=== PATIENT | male | born 1940 | race Caucasian/White ===

== ENCOUNTER 2020-02-19 19:18 | Inpatient (IN) | payer OTHER, SELFPAY ==
[2020-02-19] MEDS ORDERED: NA CHLORIDE 0.9% 1,000 ML ONE ×2 (20:21→23:28)
[2020-02-19] MEDS ORDERED: ONDANSETRON 4 MG/2 ML VIAL ONE (20:22)
[2020-02-19] MEDS ORDERED: MORPHINE 4 MG/ML SYR ONE ×2 (20:22→21:19)
[2020-02-19] MEDS ORDERED: TETANUS & DIPHTHERIA TOX,ADULT 0.5 ML VIAL ONE (20:26)
--- NOTE | 2020-02-19 20:34 | RAD REPORT ---
EXAM DESCRIPTION: RAD - Chest Single View - 02/19/2020 8:27 pm CLINICAL HISTORY: COUGH Chest pain. COMPARISON: No comparisons FINDINGS: Portable technique limits examination quality. The lungs are emphysematous but grossly clear. The heart is normal in size. No displaced fractures. IMPRESSION: Prominent COPD.
[2020-02-19 20:40] LABS: Hematocrit 50.8 % (39.6-49.0); RBC Red Blood Cell Count 5.46 M/uL (4.33-5.43)
--- NOTE | 2020-02-19 20:58 | RAD REPORT ---
EXAM DESCRIPTION: CT - Head C Spine Cap Wo Con - 02/19/2020 8:40 pm CLINICAL HISTORY: Trauma, head and neck injury. Chest, abdomen and pelvis pain. Pain;Weakness COMPARISON: No comparisons TECHNIQUE: CT head without contrast. CT cervical spine without contrast with coronal and sagittal reformatted images. CT chest, abdomen and pelvis without contrast with coronal and sagittal reformatted [facility] scans are performed using dose optimization technique as appropriate and may include automated exposure control or mA/KV adjustment according to patient size. FINDINGS: CT HEAD WITHOUT CONTRAST: No intracranial hemorrhage, hydrocephalus or extra-axial fluid collection. Moderate generalized brain atrophy is present with moderate periventricular and deep white matter chronic microvascular ischemi c changes. No areas of brain edema or midline shift. Mild fluid is seen in the right maxillary antrum. The paranasal sinuses and mastoids are otherwise cl ear. The calvarium is intact. CT CERVICAL SPINE WITHOUT CONTRAST: No fracture or subluxation. Mild mid and lower cervical degenerative changes. Mild atherosclerosis of both carotid arteries. The prevertebral soft tissues are normal in thickness. CT CHEST, ABDOMEN, PELVIS WITHOUT CONTRAST: NOTE: Lack of contrast is a significant limitation in the assessment of trauma related findings. Spec ifically, solid organ, vascular and bowel evaluation is significantly limited. Prominent COPD.No focal infiltrate seen.No pneumothorax or pericardial/pleural fluid. No evidence of intra-abdominal visceral injury, free fluid or free air is seen within the above detai led limitations. Mild sigmoid diverticulosis without diverticulitis. Small bilateral fat containing inguinal hernias. No fractures. IMPRESSION: Negative for acute traumatic findings within the above detailed limitations.
[2020-02-19 21:12] LABS: Albumin 2.7 g/dL (3.4-5.0); Bilirubin Direct 0.3 mg/dL (0-0.2); Bilirubin Total 0.9 mg/dL (0.2-1.0); Blood Morphology Comment NOT SEEN (NOT SEEN); CKMB Creatine Kinase MB 15.3 ng/mL (0.3-3.6); Magnesium 3.1 mg/dL (1.8-2.4); Platelet Estimate DECR; Potassium 3.9 mmol/L (3.5-5.1); Protein, Total 6.1 g/dL (6.4-8.2); Troponin (Emerg Dept Use Only) 0.25 ng/mL (0.0-0.045)
--- NOTE | 2020-02-19 21:12 | ER ---
Nurse's Notes [facility] Name: Wally Ruby Age: 79 yrs Sex: Male : 1940 Arrival Date: 02/19/2020 Time: 19:19 Bed 5 Private MD: Diagnosis: Repeated falls;Weakness;Chronic obstructive pulmonary disease, unspecified;Elevated white blood cell count;Low back pain;Rhabdomyolysis;Acute kidney failure;Hypoglycemia, unspecified Presentation: 02/18 19:20 Chief complaint: EMS states: HE LIVES AT HOME BY HIMSELF. WITH CHRONIC BACK PAIN AND rv NORMALLY MOVES AROUND BY CRAWLING. TODAY, THE PAIN JUST HIT HIM AND COULD NOT GO ANY FURTHER THAT IS WHY HE CALLED US IN. NOTICED ABRASIONS AND BRUISES ALL OVER ESPECIALLY ON BOTH KNEES AND UPPER EXTREMITIES FROM CRAWLING AROUND. GCS 15. ALERT AND ORIENTED. Care prior to arrival: None. Mechanism of Injury: Fall SAME LEVEL. Trauma event details: Injury occurred in the [facility], Injury occurred: at home. Injury occurred: February 19, 2020 Injury occurred at: 19:00. 19:20 Acuity: JYOTHI 3 rv 19:20 Method Of Arrival: EMS: [facility] rv 19:30 Coronavirus screen: Patient denies fever greater than 100.4F, cough, shortness of rv breath, or difficulty breathing. Proceed with normal triage process. Ebola Screen: No symptoms or risks identified at this time. Initial Sepsis Screen: Does the patient meet any 2 criteria? No. Patient's initial sepsis screen is negative. Does the patient have a suspected source of infection? No. Patient's initial sepsis screen is negative. Risk Assessment: Do you want to hurt yourself or someone else? Patient reports no desire to harm self or others. 22:12 Onset of symptoms is unknown. rv Trauma Activation: Not Applicable Physician: ED Physician; Name: ; Notified At: ; Arrived At: Physician: General Surgeon; Name: ; Notified At: ; Arrived At: Physician: Radiology; Name: ; Notified At: ; Arrived At: Physician: Respiratory; Name: ; Notified At: ; Arrived At: Physician: Lab; Name: ; Notified At: ; Arrived At: Historical: - Allergies: 19:33 No Known Allergies; rv - PMHx: 19:33 COPD; rv - PSHx: 19:33 None; rv - Immunization history: Last tetanus immunization: unknown. - Social history:: Smoking status: Patient reports the use of cigarette tobacco products, smokes one-half pack cigarettes per day. Screenin:28 Abuse screen: Denies threats or abuse. Denies injuries from another. Tuberculosis rv screening: No symptoms or risk factors identified. 19:30 Nutritional screening: No deficits noted. Fall Risk Fall in past 12 months (25 points). rv Secondary diagnosis (15 points) impaired mobility, No IV (0 pts). Ambulatory Aid- Furniture (30 pts.). Gait- Impaired (20 pts.). Mental Status- Oriented to own ability (0 pts). Total Michele Fall Scale indicates High Risk Score (45 or more points). Fall prevention measures have been instituted. Side Rails Up X 2 Frequent Obs/Assessments Occuring As available patient and family educated on Fall Prevention Program and Strategies. Primary Survey: 19:27 NO uncontrolled hemorrhage observed. Breathing/Chest: Respiratory pattern: regular. rv Circulation: Skin color: pink. Disability Alert. Exposure/Environment: There is no evidence of uncontrolled external bleeding. No obvious injuries are noted at this time. A warming method has been applied: A warm blanket has been provided to the patient. Assessment: 19:24 General: Appears in no apparent distress. Behavior is calm, cooperative. Pain: rv Complains of pain in back, right leg and left knee. Neuro: Level of Consciousness is awake, alert, obeys commands, Oriented to person, place, time, situation. EENT: No signs and/or symptoms were reported regarding the EENT system. Cardiovascular: Patient's skin is warm and dry. Respiratory: Airway is patent Respiratory effort is even, unlabored. GI: No signs and/or symptoms were reported involving the gastrointestinal system. : No signs and/or symptoms were reported regarding the genitourinary system. Derm: Skin has skin tears on LOWER AND UPPER EXTREMITIES. Bruising that is dark purple, on right knee and left knee. Musculoskeletal: Reports pain in back COULD NOT AMBULATE NORMALLY, PATIENT USUALLY CRAWLS AROUND HIS HOUSE. 19:30 Reassessment: PATIENT CAME IN WITHOUT THE WALLET. CELLPHONE AND CAR CALVERT HANDED OFF BY rv EMT UPON ARRIVAL. 20:23 Reassessment: HOOKED TO OXYGEN AT 2LPM PER NC. rv 20:31 Reassessment: PATIENT TAKEN TO CT SCAN VIA STRETCHER. rv 21:05 Reassessment: PATIENT BACK FROM THE CT SCAN. rv 22:11 Reassessment: GIVEN JUICE PO. WILL RECHECK SUGAR AFTER 30 MINUTES. rv 23:17 Reassessment: BLOOD SUGAR DECREASED AFTER RECHECK. GIVEN HALF AMP OF DEXTROSE 50 W IV rv AND OFFERED SANDWICH AND ANOTHER APPLE JUICE. GCS 15. 23:37 Reassessment: SUGAR ELEVATED AFTER EATING. GCS 15. rv Vital Signs: 19:28 BP 106 / 94; Pulse 93; Resp 19; Temp 96.5(TE); Pulse Ox 100% on R/A; Weight 81.65 kg; rv Height 5 ft. 11 in. (180.34 cm); 19:47 Pain 10/10; rv 20:31 BP 134 / 81; Pulse 88; Resp 17; Pulse Ox 96% on 2 lpm NC; rv 21:19 BP 117 / 61; Pulse 93; Resp 18; Temp 97.5; Pulse Ox 99% on 2 lpm NC; Pain 10/10; rv 22:00 BP 115 / 70; Pulse 88; Resp 18; Pulse Ox 94% on 2 lpm NC; rv 23:00 BP 131 / 87; Pulse 97; Resp 18; Pulse Ox 96% on 2 lpm NC; rv 23:30 BP 132 / 74; Pulse 89; Resp 21; Pulse Ox 96% on 2 lpm NC; rv 19:28 Body Mass Index 25.10 (81.65 kg, 180.34 cm) rv Juan Jose Coma Score: 19:28 Eye Response: spontaneous(4). Verbal Response: oriented(5). Motor Response: obeys rv commands(6). Total: 15. 20:31 Eye Response: spontaneous(4). Verbal Response: oriented(5). Motor Response: obeys rv commands(6). Total: 15. Trauma Score (Adult): 19:28 Eye Response: spontaneous(1); Verbal Response: oriented(1); Motor Response: obeys rv commands(2); Systolic BP: > 89 mm Hg(4); Respiratory Rate: 10 to 29 per min(4); Juan Jose Score: 15; Trauma Score: 12 ED Course: 19:19 Patient arrived in ED. ds1 19:20 Hi Vyas, MELLO is Primary Nurse. rv 19:24 Triage completed. rv 19:28 Patient has correct armband on for positive identification. Bed in low position. Call rv light in reach. Side rails up X2. 19:28 Patient maintains SpO2 saturation greater than 95% on room air. rv 19:33 Lang Mccann MD is Attending Physician. jad 19:33 Arm band placed on Patient placed in the treatment room, on a stretcher, Patient rv notified of wait time. 19:33 Thermoregulation: warm blanket given to patient. rv 20:27 XRAY Chest (1 view) In Process Unspecified. EDMS 20:29 EKG done, by ED staff, reviewed by Lang Mccann MD. rr5 20:30 Inserted saline lock: 20 gauge in right Blood collected. DA GENERAL CARGO CLERK. rv 20:36 Ckmb Sent. ds4 20:36 CK Sent. ds4 20:37 Lipase Sent. ds4 20:37 Basic Metabolic Panel Sent. ds4 20:37 NT PRO-BNP Sent. ds4 20:37 CBC with Diff Sent. ds4 20:38 LFT's Sent. ds4 20:38 Magnesium Sent. ds4 20:38 PT-INR Sent. ds4 20:38 Troponin (emerg Dept Use Only) Sent. ds4 20:41 CT Traumagram (Head C Spine CAP wo con) In Process Unspecified. EDMS 21:10 Ariadne Watson MD is Hospitalizing Provider. jad 21:16 Notified ED physician of a critical lab result(s). CPK 3179, CKMB 15.3. lp1 21:30 First set of blood cultures drawn by me. ds4 21:30 Inserted saline lock: 22 gauge in left antecubital area, using aseptic technique. Blood ds4 collected. 23:11 No provider procedures requiring assistance completed. Patient admitted, IV remains in rr5 place. intact, No redness/swelling at site. 23:20 Blood Culture Adult (2) Sent. ds4 23:20 Urine Culture Sent. ds4 23:40 Velasquez cath inserted, using sterile technique, 16 Fr., by manager infrastructure, balloon inflated, to rr5 gravity drainage, other by da printer repair technician. Administered Medications: 20:28 Drug: Tetanus-Diphtheria Toxoid Adult 0.5 ml {Dramatic Arts Historian: [employer]. Exp: rr5 12/12/2021. Lot #: [id number]. } Route: IM; Site: left deltoid; 21:06 Follow up: Response: No adverse reaction rv 20:29 Drug: morphine 4 mg {Note: RASS 0.} Route: IVP; Site: right antecubital; rv 21:06 Follow up: Response: No adverse reaction; Pain is unchanged, physician notified; RASS: rv Alert and Calm (0) 20:30 Drug: Zofran (Ondansetron) 4 mg Route: IVP; Site: right antecubital; rv 21:06 Follow up: Response: No adverse reaction rv 20:31 Drug: NS 0.9% 1000 ml Route: IV; Rate: 1 bolus; Site: right antecubital; rv 23:20 Follow up: IV Status: Completed infusion; IV Intake: 1000ml rv 21:20 Drug: Rocephin 1 grams Route: IV; Rate: per protocol; Site: right antecubital; rv 21:21 Follow up: IV Status: Completed infusion rv 21:20 Drug: morphine 4 mg {Note: RASS 0.} Route: IVP; Site: right antecubital; rv 23:40 Follow up: Response: No adverse reaction; Marked relief of symptoms; Pain is decreased; rv RASS: Alert and Calm (0) 23:17 Drug: D50W 25 ml Route: IVP; Site: right antecubital; rv 23:33 Follow up: Response: Blood sugar is elevated rv 23:28 Drug: NS 0.9% 1000 ml Route: IV; Rate: 1 bolus; Site: right antecubital; rv 23:39 Follow up: IV Status: Infusion continued upon admission rv Intake: 23:20 IV: 1000ml; Total: 1000ml. rv Outcome: 21:11 Decision to Hospitalize by Provider. jad 23:11 Admitted to [facility] accompanied by ar, via stretcher, room 402, with oxygen, with chart, rr5 Report called to kennedy 23:11 Condition: stable 23:11 Instructed on the need for admit. 23:43 Patient left the ED. rv Signatures: Dispatcher [employer] EDLang Villalobos MD MD cha Sanford, Demi ds1 Gilma Chaparro, RN RN lp1 Da Castro ds4 Hi Vyas RN RN rv Chico Page, RN RN rr5 Corrections: (The following items were deleted from the chart) 21:36 21:35 Inserted saline lock: 22 gauge in left antecubital area, using aseptic technique. ds4 Blood collected. ds4 23:38 23:17 Reassessment: BLOOD SUGAR DECREASED AFTER RECHECK. GIVEN HALF AMP OF DEXTROSE 50 rv W IV AND OFFERED SANDWICH AND ANOTHER APPLE JUICE. rv
--- NOTE | 2020-02-19 21:12 | EDPHYS ---
Physician Documentation [facility] Name: Wally Ruby Age: 79 yrs Sex: Male : 1940 Arrival Date: 02/19/2020 Time: 19:19 Bed 5 Private MD: ED Physician Lang Mccann HPI: 02/18 20:16 This 79 yrs old Male presents to ER via EMS with complaints of Fall Injury. jad 20:16 Details of fall: The patient fell from an upright position, while walking. Onset: The jad symptoms/episode began/occurred 5 day(s) ago. Associated injuries: The patient sustained right leg and left leg, decreased range of motion. Severity of symptoms: At their worst the symptoms were mild, in the emergency department the symptoms are unchanged. Historical: - Allergies: 19:33 No Known Allergies; rv - PMHx: 19:33 COPD; rv - PSHx: 19:33 None; rv - Immunization history: Last tetanus immunization: unknown. - Social history:: Smoking status: Patient reports the use of cigarette tobacco products, smokes one-half pack cigarettes per day. ROS: 20:17 Constitutional: Negative for fever, chills, and weight loss, Eyes: Negative for injury, jad pain, redness, and discharge, ENT: Negative for injury, pain, and discharge, Neck: Negative for injury, pain, and swelling, Cardiovascular: Negative for chest pain, palpitations, and edema, Respiratory: Negative for shortness of breath, cough, wheezing, and pleuritic chest pain, Abdomen/GI: Negative for abdominal pain, nausea, vomiting, diarrhea, and constipation, : Negative for injury, bleeding, discharge, and swelling, MS/Extremity: Negative for injury and deformity, Skin: Negative for injury, rash, and discoloration, Neuro: Negative for headache, weakness, numbness, tingling, and seizure, Psych: Negative for depression, anxiety, suicide ideation, homicidal ideation, and hallucinations, Allergy/Immunology: Negative for hives, rash, and allergies, Endocrine: Negative for neck swelling, polydipsia, polyuria, polyphagia, and marked weight changes, Hematologic/Lymphatic: Negative for swollen nodes, abnormal bleeding, and unusual bruising. 20:17 Back: Positive for decreased range of motion, pain at rest, pain with movement. 20:17 MS/extremity: Positive for decreased range of motion, pain, tenderness, of the right leg and left leg. Exam: 20:17 Constitutional: This is a well developed, well nourished patient who is awake, alert, jad and in no acute distress. Head/Face: Normocephalic, atraumatic. Eyes: Pupils equal round and reactive to light, extra-ocular motions intact. Lids and lashes normal. Conjunctiva and sclera are non-icteric and not injected. Cornea within normal limits. Periorbital areas with no swelling, redness, or edema. ENT: Nares patent. No nasal discharge, no septal abnormalities noted. Tympanic membranes are normal and external auditory canals are clear. Oropharynx with no redness, swelling, or masses, exudates, or evidence of obstruction, uvula midline. Mucous membranes moist. Neck: Trachea midline, no thyromegaly or masses palpated, and no cervical lymphadenopathy. Supple, full range of motion without nuchal rigidity, or vertebral point tenderness. No Meningismus. Chest/axilla: Normal chest wall appearance and motion. Nontender with no deformity. No lesions are appreciated. Cardiovascular: Regular rate and rhythm with a normal S1 and S2. No gallops, murmurs, or rubs. Normal PMI, no JVD. No pulse deficits. Respiratory: Lungs have equal breath sounds bilaterally, clear to auscultation and percussion. No rales, rhonchi or wheezes noted. No increased work of breathing, no retractions or nasal flaring. Abdomen/GI: Soft, non-tender, with normal bowel sounds. No distension or tympany. No guarding or rebound. No evidence of tenderness throughout. Male : Normal genitalia with no discharge or lesions. Neuro: Awake and alert, GCS 15, oriented to person, place, time, and situation. Cranial nerves II-XII grossly intact. Motor strength 5/5 in all extremities. Sensory grossly intact. Cerebellar exam normal. Normal gait. Psych: Awake, alert, with orientation to person, place and time. Behavior, mood, and affect are within normal limits. 20:17 Back: pain, that is mild, that is moderate, ROM is painful, normal spinal alignment noted, CVA tenderness, is absent, muscle spasm, is appreciated in the left low back, left mid back, right mid back and right low back. Vital Signs: 19:28 BP 106 / 94; Pulse 93; Resp 19; Temp 96.5(TE); Pulse Ox 100% on R/A; Weight 81.65 kg; rv Height 5 ft. 11 in. (180.34 cm); 19:47 Pain 10/10; rv 20:31 BP 134 / 81; Pulse 88; Resp 17; Pulse Ox 96% on 2 lpm NC; rv 21:19 BP 117 / 61; Pulse 93; Resp 18; Temp 97.5; Pulse Ox 99% on 2 lpm NC; Pain 10/10; rv 22:00 BP 115 / 70; Pulse 88; Resp 18; Pulse Ox 94% on 2 lpm NC; rv 23:00 BP 131 / 87; Pulse 97; Resp 18; Pulse Ox 96% on 2 lpm NC; rv 23:30 BP 132 / 74; Pulse 89; Resp 21; Pulse Ox 96% on 2 lpm NC; rv 19:28 Body Mass Index 25.10 (81.65 kg, 180.34 cm) rv Juan Jose Coma Score: 19:28 Eye Response: spontaneous(4). Verbal Response: oriented(5). Motor Response: obeys rv commands(6). Total: 15. 20:31 Eye Response: spontaneous(4). Verbal Response: oriented(5). Motor Response: obeys rv commands(6). Total: 15. Trauma Score (Adult): 19:28 Eye Response: spontaneous(1); Verbal Response: oriented(1); Motor Response: obeys rv commands(2); Systolic BP: > 89 mm Hg(4); Respiratory Rate: 10 to 29 per min(4); Juan Jose Score: 15; Trauma Score: 12 MDM: 19:33 Patient medically screened. [facility] 20:17 Data reviewed: vital signs, nurses notes, lab test result(s), EKG, radiologic studies, [facility] CT scan, plain films. 02/18 20:13 Order name: Basic Metabolic Panel; Complete Time: 23:16 [facility] 02/18 20:13 Order name: CBC with Diff; Complete Time: 23:16 [facility] 02/18 20:13 Order name: LFT's; Complete Time: 23:16 [facility] 02/18 20:13 Order name: Magnesium; Complete Time: 23:16 [facility] 02/18 20:13 Order name: NT PRO-BNP; Complete Time: 23:16 [facility] 02/18 20:13 Order name: PT-INR; Complete Time: 23:16 [facility] 02/18 20:13 Order name: Troponin (emerg Dept Use Only); Complete Time: 23:16 [facility] 02/18 20:13 Order name: Lipase; Complete Time: 23:16 [facility] 02/18 20:13 Order name: CK; Complete Time: 23:16 [facility] 02/18 20:13 Order name: Ckmb; Complete Time: 23:16 [facility] 02/18 20:13 Order name: Urine Culture [facility] 02/18 20:49 Order name: Manual Differential; Complete Time: 23:16 [facility] 02/18 21:10 Order name: Blood Culture Adult (2) [facility] 02/18 21:12 Order name: Urine Dipstick--Ancillary (enter results); Complete Time: 23:16 [facility] 02/18 22:46 Order name: CBC with Automated Diff [facility] 02/18 22:46 Order name: CBC with Automated Diff [facility] 02/18 22:46 Order name: CKMB Creatine Kinase MB [facility] 02/18 22:46 Order name: CKMB Creatine Kinase MB [facility] 02/18 22:46 Order name: CKMB Creatine Kinase MB [facility] 02/18 22:46 Order name: CKMB Creatine Kinase MB [facility] 02/18 22:46 Order name: Comprehensive Metabolic Panel [facility] 02/18 22:46 Order name: Comprehensive Metabolic Panel [facility] 02/18 22:46 Order name: Creatine Phosphokinase [facility] 02/18 22:46 Order name: Creatine Phosphokinase [facility] 02/18 22:46 Order name: Creatine Phosphokinase [facility] 02/18 22:46 Order name: Creatine Phosphokinase [facility] 02/18 22:46 Order name: Protime (+INR) [facility] 02/18 22:46 Order name: Protime (+INR) [facility] 02/18 22:46 Order name: PTT, Activated Partial Thromb [facility] 02/18 22:46 Order name: PTT, Activated Partial Thromb [facility] 02/18 20:13 Order name: XRAY Chest (1 view); Complete Time: 21:08 [facility] 02/18 20:13 Order name: EKG; Complete Time: 20:13 [facility] 02/18 20:13 Order name: Cardiac monitoring; Complete Time: 20:23 [facility] 02/18 20:13 Order name: EKG - Nurse/Tech; Complete Time: 20:23 [facility] 02/18 20:13 Order name: IV Saline Lock; Complete Time: 20:23 [facility] 02/18 20:13 Order name: Labs collected and sent; Complete Time: 20:23 [facility] 02/18 20:13 Order name: O2 Per Protocol; Complete Time: 20:23 [facility] 02/18 20:13 Order name: O2 Sat Monitoring; Complete Time: 20:23 [facility] 02/18 20:13 Order name: Urine Dipstick-Ancillary (obtain specimen); Complete Time: 21:12 [facility] 02/18 20:13 Order name: CT Traumagram (Head C Spine CAP wo con); Complete Time: 21:08 [facility] 02/18 22:45 Order name: CONS Pharmacy Consult [facility] 02/18 22:45 Order name: CONS Physician Consult [facility] 02/18 22:46 Order name: Heart Healthy [facility] 02/18 22:46 Order name: EKG Electrocardiogram [facility] 02/18 22:46 Order name: EKG Electrocardiogram [facility] 02/18 22:46 Order name: Troponin I [facility] 02/18 22:46 Order name: Troponin I [facility] 02/18 22:46 Order name: Troponin I [facility] 02/18 23:18 Order name: Velasquez: viscus lido; Complete Time: 23:29 [facility] 02/18 23:24 Order name: Glucose, Ancillary Testing EDMS Administered Medications: 20:28 Drug: Tetanus-Diphtheria Toxoid Adult 0.5 ml {[employer] Consultant: [employer]. Exp: rr5 12/12/2021. Lot #: [id number]. } Route: IM; Site: left deltoid; 21:06 Follow up: Response: No adverse reaction rv 20:29 Drug: morphine 4 mg {Note: RASS 0.} Route: IVP; Site: right antecubital; rv 21:06 Follow up: Response: No adverse reaction; Pain is unchanged, physician notified; RASS: rv Alert and Calm (0) 20:30 Drug: Zofran (Ondansetron) 4 mg Route: IVP; Site: right antecubital; rv 21:06 Follow up: Response: No adverse reaction rv 20:31 Drug: NS 0.9% 1000 ml Route: IV; Rate: 1 bolus; Site: right antecubital; rv 23:20 Follow up: IV Status: Completed infusion; IV Intake: 1000ml rv 21:20 Drug: Rocephin 1 grams Route: IV; Rate: per protocol; Site: right antecubital; rv 21:21 Follow up: IV Status: Completed infusion rv 21:20 Drug: morphine 4 mg {Note: RASS 0.} Route: IVP; Site: right antecubital; rv 23:40 Follow up: Response: No adverse reaction; Marked relief of symptoms; Pain is decreased; rv RASS: Alert and Calm (0) 23:17 Drug: D50W 25 ml Route: IVP; Site: right antecubital; rv 23:33 Follow up: Response: Blood sugar is elevated rv 23:28 Drug: NS 0.9% 1000 ml Route: IV; Rate: 1 bolus; Site: right antecubital; rv 23:39 Follow up: IV Status: Infusion continued upon admission rv Disposition: 02/19/20 21:11 Hospitalization ordered by Ariadne Watson for Inpatient Admission. Preliminary diagnosis are Repeated falls, Weakness, Chronic obstructive pulmonary disease, unspecified, Elevated white blood cell count, Low back pain, Rhabdomyolysis, Acute kidney failure, Hypoglycemia, unspecified. - Bed requested for Telemetry/MedSurg (Inpatient). - Status is Inpatient Admission. rv - Condition is Fair. - Problem is new. - Symptoms have improved. Signatures: Dispatcher [employer] EDMS Lang Mccann MD MD cha Lasagna, Tonya, RN RN tl1 Hi Vyas RN RN rv [place] Page RN RN [email or web address] Corrections: (The following items were deleted from the chart) 21:12 21:11 Hospitalization Ordered by Ariadne Watson MD for Inpatient Admission. Preliminary jad diagnosis is Repeated falls; Weakness; Chronic obstructive pulmonary disease, unspecified; Elevated white blood cell count. Bed requested for Telemetry/MedSurg (Inpatient). Status is Inpatient Admission. Condition is Fair. Problem is new. Symptoms have improved. jad 21:18 21:12 02/19/2020 21:11 Hospitalization Ordered by Ariadne Watson MD for Inpatient jad Admission. Preliminary diagnosis is Repeated falls; Weakness; Chronic obstructive pulmonary disease, unspecified; Elevated white blood cell count; Low back pain. Bed requested for Telemetry/MedSurg (Inpatient). Status is Inpatient Admission. Condition is Fair. Problem is new. Symptoms have improved. jad 22:56 21:18 02/19/2020 21:11 Hospitalization Ordered by Ariadne Watson MD for Inpatient tl1 Admission. Preliminary diagnosis is Repeated falls; Weakness; Chronic obstructive pulmonary disease, unspecified; Elevated white blood cell count; Low back pain; Rhabdomyolysis. Bed requested for Telemetry/MedSurg (Inpatient). Status is Inpatient Admission. Condition is Fair. Problem is new. Symptoms have improved. [facility] 23:19 22:56 02/19/2020 21:11 Hospitalization Ordered by Ariadne Watson MD for Inpatient jad Admission. Preliminary diagnosis is Repeated falls; Weakness; Chronic obstructive pulmonary disease, unspecified; Elevated white blood cell count; Low back pain; Rhabdomyolysis. Bed requested for Telemetry/MedSurg (Inpatient). Status is Inpatient Admission. Condition is Fair. Problem is new. Symptoms have improved. tl1 23:20 23:19 02/19/2020 21:11 Hospitalization Ordered by Ariadne Watson MD for Inpatient jad Admission. Preliminary diagnosis is Repeated falls; Weakness; Chronic obstructive pulmonary disease, unspecified; Elevated white blood cell count; Low back pain; Rhabdomyolysis; Acute kidney failure. Bed requested for Telemetry/MedSurg (Inpatient). Status is Inpatient Admission. Condition is Fair. Problem is new. Symptoms have improved. [facility] 23:43 23:20 02/19/2020 21:11 Hospitalization Ordered by Ariadne Watson MD for Inpatient rv Admission. Preliminary diagnosis is Repeated falls; Weakness; Chronic obstructive pulmonary disease, unspecified; Elevated white blood cell count; Low back pain; Rhabdomyolysis; Acute kidney failure; Hypoglycemia, unspecified. Bed requested for Telemetry/MedSurg (Inpatient). Status is Inpatient Admission. Condition is Fair. Problem is new. Symptoms have improved. jad
[2020-02-19 21:18] LABS: Urine Blood 2+ (NEG); Urine Glucose NEGATIVE (NEG); Urine Protein 2+ (NEG); Urine pH 6.5 (5.0-7.0)
[2020-02-19] MEDS ORDERED: CEFTRIAXONE/SWI 1gm 1 GM/10 ML SYR ONE (21:19)
[2020-02-19 21:22] LABS: Protime INR 1.04
[2020-02-19] MEDS ORDERED: ONDANSETRON 4 MG/2 ML VIAL IV PRN (22:39)
[2020-02-19] MEDS ORDERED: NACHLORIDE 0.45% 1,000 ML with NA BICARB 8.4% 50 MEQ IV SCH ×2 (23:00)
[2020-02-19] MEDS ORDERED: D50W 25 GM/50 ML SYRINGE/VIAL IV ONE (23:15)
[2020-02-19] MEDS ORDERED: LIDOCAINE VISCOUS 2% SOLN 15 ML UDC ONE (23:27)
[2020-02-20 00:27] VITALS: BMI 23.3
[2020-02-20] MEDS ORDERED: NA CHLORIDE 0.9% 1,000 ML ONE (02:36)
[2020-02-20] MEDS ORDERED: SODIUM BICARB 50 MEQ/50ML VIAL ONE (02:36)
[2020-02-20 04:08] LABS: Absolute Lymphocytes (CBC) 0.6 K/uL (0.7-4.9); Basophils % 0.3 % (0-1.3); Lymphocytes % 12.9 % (15.3-44.8); MPV 8.5 fL (7.6-11.3); RBC Red Blood Cell Count 5.31 M/uL (4.33-5.43)
[2020-02-20] MEDS ORDERED: METHYLPREDNISOLONE 125 MG INJ IV ONE (04:21)
[2020-02-20] MEDS ORDERED: IPRATROPIUM BROM 0.5MG/2.5ML NEB ONE (04:55)
[2020-02-20] MEDS ORDERED: ALBUTEROL 2.5 MG/3 ML NEB SOL NEB ONE (04:55)
[2020-02-20 05:44] LABS: Arterial Blood Carboxyhemoglob 0.6 % (0-1.5); Blood Gas Oxyhemoglobin 92.4 % (94-97); Blood O2 Saturation 93.9 % (92-98.5)
[2020-02-20] MEDS ORDERED: NACHLORIDE 0.45% 1,000 ML with NA BICARB 8.4% 50 MEQ IV SCH ×4 (06:00→07:00)
[2020-02-20 06:21] LABS: Protime INR 1.04
[2020-02-20] MEDS ORDERED: ALBUMIN HUMAN 25% 50 ML IV ONE (06:45)
[2020-02-20] MEDS ORDERED: FUROSEMIDE 20 MG/ 2ML VIAL IV ONE (06:45)
[2020-02-20 06:50] LABS: Albumin 2.4 g/dL (3.4-5.0); Bilirubin Total 0.9 mg/dL (0.2-1.0); Potassium 4.3 mmol/L (3.5-5.1); Protein, Total 5.3 g/dL (6.4-8.2); Troponin I 0.26 ng/mL (0.0-0.045)
[2020-02-20 06:55] LABS: CKMB Creatine Kinase MB 14.8 ng/mL (0.3-3.6)
[2020-02-20] MEDS ORDERED: AZITHROMYCIN IV 250 MG in NA CHLORIDE 0.9% 250 ML IVPB SCH ×2 (07:00→08:00)
--- NOTE | 2020-02-20 07:08 | RAD REPORT ---
EXAM DESCRIPTION: RAD - Chest Single View - 02/20/2020 4:28 am CLINICAL HISTORY: respiratory distress COMPARISON: Portable February 18 TECHNIQUE: AP portable chest image was obtained 02/20/2020 4:28 am . FINDINGS: Lungs are underinflated. Patient has significant baseline interstitial lung disease. Findi ngs are more prominent in the lower left lung field. Right lung field is not substantially different. Heart and vasculature are normal. No measurable pleural effusion and no pneumothorax. No acute bony abnormality seen. No acute aortic findings suspected. IMPRESSION: New or progressive left lung base pneumonia superimposed on chronic interstitial disease .
[2020-02-20] MEDS ORDERED: ENOXAPARIN 80 MG/0.8 ML SQ ONE (07:11)
--- NOTE | 2020-02-20 07:17 | P.HP ---
Certification for Inpatient Patient admitted to: Inpatient With expected LOS: >2 Midnights Patient will require the following post-hospital care: None Practitioner: I am a practitioner with admitting privileges, knowledge of patient current condition, hospital course, and medical plan of care. Services: Services provided to patient in accordance with Admission requirements found in Title 42 Section 412.3 of the Code of Federal Regulations Patient History Date of Service: 02/19/20 Reason for admission: Status post fall/rhabdomyolysis/acute kidney injury History of Present Illness: Patient is a 79-year-old gentleman who is a very poor historian who comes into the hospital when after falling. He was found on the floor and apparently he had been there for 3-4 days. In the emergency room he was found have an elevated CPK. He had a CT traumogram without contrast which did not reveal any significant pathology. Patient did have acute kidney injury and he was started on IV hydration. Patient was given a couple doses of morphine for pain. He has been on more lethargic since he got the pain medication. Will monitor him closely. We did try to contact family; however, unsure if there is any family to contact. At this time, patient will be admitted to the hospital for further evaluation. Allergies No Known Allergies Allergy (Verified 02/20/20 00:27) - Past Medical/Surgical History Has patient received pneumonia vaccine in the past: No Diabetic: No -: COPD Past Surgical History: Unable to obtain - Family History Mother Medical History: Stroke Father Medical History: Stroke - Social History Smoking Status: Current some day smoker Alcohol use: No CD- Drugs: No Caffeine use: Yes Place of Residence: Home Review of Systems 10-point ROS is otherwise unremarkable Physical Examination - Vital Signs Temperature: 97 F Blood Pressure: 120/65 Pulse: 80 Respirations: 18 Pulse Ox (%): 94 - Physical Exam General: Alert, In no apparent distress, Oriented x1, Cooperative HEENT: Atraumatic, PERRLA, Mucous membr. moist/pink, EOMI, Sclerae nonicteric Neck: Supple, 2+ carotid pulse no bruit, No LAD, Without JVD or thyroid abnormality Respiratory: Diminished, Expiratory wheezes Cardiovascular: Regular rate/rhythm, Normal S1 S2, No murmurs Gastrointestinal: Normal bowel sounds, Soft and benign, Non-distended, No tenderness Musculoskeletal: No clubbing, No swelling, No tenderness Integumentary: No rashes Neurological: Normal speech, Normal tone, Sensation intact, Cranial nerves 3-12 intact, Normal affect, Abnormal gait, Abnormal strength Lymphatics: No axilla or inguinal lymphadenopathy - Studies Laboratory Data (last 24 hrs) 02/19/20 20:25: PT 12.3, INR 1.04 02/19/20 20:25: WBC 16.2 H, Hgb 16.9, Hct 50.8 H, Plt Count 137 L 02/19/20 20:25: Sodium 133 L, Potassium 3.9, BUN 48 H, Creatinine 3.14 H, Glucose 65 L, Magnesium 3.1 H, Total Bilirubin 0.9, AST 125 H, ALT 110 H, Alkaline Phosphatase 90, Lipase 89 Assessment & Plan - Problems (Diagnosis) (1) Status post fall Current Visit: Yes Status: Acute (2) Rhabdomyolysis Current Visit: Yes Status: Acute (3) Acute kidney injury Current Visit: Yes Status: Acute (4) Acute exacerbation of chronic obstructive pulmonary disease (COPD) Current Visit: Yes Status: Acute - Plan Plan: 1. Gentle hydration 2. Renal ultrasound 3. Nephrology consultation 4. Physical therapy evaluation 5. Monitor respiratory status closely. BNP is also elevated so will check an echocardiogram 6. Patient may need placement. Will get case management consultation 7. Pulmonary consultation 8. Nebs, steroids, and antibiotics 9. Repeat BNP and check D-dimer 10. GI and DVT prophylaxis Discharge Plan: Long-Term Plan to discharge in: Greater than 2 days - Advance Directives Does patient have a Living Will: No Does patient have a Durable POA for Healthcare: No - Code Status/Comfort Care Code Status Assessed: Yes Code Status: Full Code Critical Care: No Time Spent Managing PTS Care (In Minutes): 45
--- NOTE | 2020-02-20 07:18 | P.PN ---
Date of Service: 02/20/20 Rapid response was called because patient was more hypoxic. His pupils were pinpoint; however, patient was moving all his extremities. He did follow commands. At this time will go ahead and give him on an additional neb treatment. We will try to diurese him as well. Repeat his chest x-ray and check a D-dimer. Will notify Pulmonary as well. ABG will be pending as well. Echocardiogram is pending. If patient's mentation does not improve we may need to give him Narcan. At this time, with the uncertainty of his cardiac status and the fact that he is responding I will hold off on giving the Narcan.
[2020-02-20] MEDS: IPRATROPIUM BROM 0.5MG/2.5ML NEB SCH ×3 (07:41→20:20)
[2020-02-20] MEDS: ALBUTEROL 2.5 MG/3 ML NEB SOL NEB SCH ×3 (07:41→20:20)
[2020-02-20] MEDS: MORPHINE 2 MG/ML SYR IV PRN (07:59)
[2020-02-20] MEDS ORDERED: PNEUMOCOCCAL VACCINE 0.5 ML IMVAC ONE (08:00)
[2020-02-20] MEDS ORDERED: NA CHLORIDE 0.9% 1,000 ML IV SCH (08:00)
[2020-02-20] MEDS ORDERED: INFLUENZA VACCINE (for 3y+) 0.5 ML DOSE IMVAC ONE (08:00)
--- NOTE | 2020-02-20 08:39 | RAD REPORT ---
EXAM DESCRIPTION: US - Extrem Venous W Compress Shaw - 02/20/2020 8:30 am CLINICAL HISTORY: DVT/? PE, leg pain and swelling COMPARISON: None. TECHNIQUE: Real-time sonographic evaluation of the bilateral lower extremity common femoral, superfi cial femoral, popliteal and posterior tibial veins was performed. FINDINGS: Normal compressibility, flow augmentation, phasic flow and spontaneous flow are identified in the left and right lower extremity common femoral, superficial femoral, popliteal and posterior t ibial veins. No intraluminal filling defects seen. IMPRESSION: No DVT in either lower extremity.
--- NOTE | 2020-02-20 10:03 | EKG ---
Test Date: 2020-02-20 Test Time: 09:22:11 Quality Process Lead: TANNER MEASUREMENT RESULTS: Intervals: Rate: 97 OK: 124 QRSD: 74 QT: 338 QTc: 429 [place]: P: 20 OK: 124 QRS: -58 T: 56 INTERPRETIVE STATEMENTS: Normal sinus rhythm Possible Left atrial enlargement Left axis deviation Nonspecific T wave abnormality Abnormal ECG Compared to ECG 02/19/2020 20:23:54 T-wave abnormality now present Atrial premature complex(es) no longer present Electronically Signed On 02-20-20 10:02:47 CDT by Reggie Hayes
--- NOTE | 2020-02-20 10:04 | EKG ---
Test Date: 2020-02-19 Test Time: 20:23:54 [employer]dered [employer] Pulverizer Operator: RR MEASUREMENT RESULTS: Intervals: Rate: 94 ID: [id number] QRSD: 84 QT: 380 QTc: 475 [place]: P: 41 ID: [id number] QRS: -76 T: 46 INTERPRETIVE STATEMENTS: Sinus rhythm with premature atrial complexes Left axis deviation Pulmonary disease pattern Abnormal ECG No previous ECG available for comparison Electronically Signed On 02-20-20 10:02:54 CDT by Reggie Hayes
[2020-02-20 10:23] LABS: Urine Appearance CLOUDY; Urine Bilirubin NEGATIVE (NEG); Urine Blood 3+ (NEG); Urine Color YELLOW; Urine Glucose NEGATIVE (NEG); Urine Protein NEGATIVE (NEG); Urine Urobilinogen 0.2 mg/dL (0.2-1.0)
[2020-02-20 10:25] LABS: Urine Microscopic Reflex ORDER UMIC
[2020-02-20 10:30] LABS: Urine Protein/Creatinine Ratio 0.46 ratio (<0.15)
--- NOTE | 2020-02-20 10:43 | ECHO ---
HEIGHT: 5 ft 11 in WEIGHT: 167 lb 3.2 oz DATE OF STUDY: 02/20/[address]: Ariadne Watson MD 2-DIMENSIONAL: YES M.MODE: YES DOPPLER: YES COLOR FLOW: YES TDS: YES PORTABLE: NO DEFINITY: NO BUBBLE STUDY: NO DIAGNOSIS: DYSPNEA CARDIAC HISTORY: CATHERIZATION: NO SURGERY: NO PROSTHETIC VALVE: NO PACEMAKER: NO MEASUREMENTS (cm) DIASTOLIC (NORMALS) SYSTOLIC (NORMALS) IVSd 1.0 (0.6-1.2) LA Diam 2.6 (1.9-4.0) LVEF 62% LVIDd 4.1 (3.5-5.7) LVIDs 2.7 (2.0-3.5) %FS 33% LVPWd 1.2 (0.6-1.2) Ao Diam 3.1 (2.0-3.7) 2 DIMENSIONAL ASSESSMENT: RIGHT ATRIUM: NORMAL LEFT ATRIUM: NORMAL RIGHT VENTRICLE: NORMAL LEFT VENTRICLE: NORMAL TRICUSPID VALVE: NORMAL MITRAL VALVE: MITRAL ANNULAR CALCIFICATION PULMONIC VALVE: NORMAL AORTIC VALVE: NORMAL PERICARDIAL EFFUSION: NONE AORTIC ROOT: NORMAL LEFT VENTRICULAR WALL MOTION: NORMAL EJECTION FRACTION, DECREASED LEFT VENTRICULAR COMPLIANCE. DOPPLER/COLOR FLOW: NORMAL. COMMENTS: DECREASED LEFT VENTRICULAR COMPLIANCE. MITRAL ANNULAR CALCIFICATION. NORMAL LEFT VETRICULAR EJECTION FRACTION AND SIZE. TECHNOLOGIST: KHOI RIOJAS
[2020-02-20 10:50] LABS: Urine Bacteria <20 /HPF (NONE SEEN); Urine Mucus SLIGHT /HPF (NONE SEEN)
[2020-02-20 10:51] LABS: Urine Culture Reflex Order NOT NEEDED
[2020-02-20] MEDS ORDERED: METHYLPREDNISOLONE 125 MG INJ IV SCH (12:00)
[2020-02-20] MEDS: NACHLORIDE 0.45% 1,000 ML with NA BICARB 8.4% 75 MEQ IV SCH ×4 (12:28→22:19)
--- NOTE | 2020-02-20 12:49 | P.CNS ---
Date of Consult: 02/20/20 Reason for Consult: COPD exacerbation Chief Complaint: COPD History of Present Illness: Patient is 79 years of age agitated poor historian currently he felt gone get up became very weak is done worse over the past week he lives by himself as been complaining about a problem for about his back patient has a history of COPD continues to smoke has an inhaler at home no oxygen the knee function is abnormal most likely he has chronic renal failure patient also has some rhabdo Allergies No Known Allergies Allergy (Verified 02/20/20 00:27) - Past Medical/Surgical History Diabetic: No -: COPD - Family History Mother Medical History: Stroke Father Medical History: Stroke - Social History Smoking Status: Current every day smoker Alcohol use: No CD- Drugs: No Caffeine use: Yes Place of Residence: Home Review of Systems General: Weakness Respiratory: Cough, Shortness of Breath Musculoskeletal: Back Pain Physical Examination Temp Pulse Resp BP Pulse Ox 97 F 80 18 120/65 94 02/20/20 12:34 02/20/20 12:34 02/20/20 12:34 02/20/20 12:34 02/20/20 12:34 General: In no apparent distress Neck: Supple Respiratory: Clear to auscultation bilaterally, Diminished Cardiovascular: No edema, Regular rate/rhythm, Normal S1 S2 Laboratory Data (last 24 hrs) 02/19/20 20:25: PT 12.3, INR 1.04 02/19/20 20:25: WBC 16.2 H, Hgb 16.9, Hct 50.8 H, Plt Count 137 L 02/19/20 20:25: Sodium 133 L, Potassium 3.9, BUN 48 H, Creatinine 3.14 H, Gl ucose 65 L, Magnesium 3.1 H, Total Bilirubin 0.9, AST 125 H, ALT 110 H, Alkaline Phosphatase 90, Lipase 89 - Problems (1) COPD (chronic obstructive pulmonary disease) Current Visit: Yes Status: Acute Plan: Patient has a history of COPD continues to smoke uses Symbicort at home in addition to Primatene mist I suspect he has chronic renal failure this admission was precipitated by fallen weakness white count is now normal vital signs stable he is on non-rebreather appears to be hypoxic combination of metabolic and respiratory acidosis CT scans were all negative there is no evidence of pneumonia he still continues to smoke evaluate for home oxygen nephrology Consul Qualifiers: COPD type: unspecified COPD Qualified Code(s): J44.9 - Chronic obstructive pulmonary disease, unspecified
--- NOTE | 2020-02-20 13:02 | CON ---
Date of Consultation: 02/20/2020 Reason For Consultation: Elevated BUN and creatinine, rhabdomyolysis. History Of Present Illness: This is a 79-year-old gentleman with significant past medical history of COPD, patient apparently was in his regular state of health, had some fall and found to be been lyin g down for almost 4 days, was brought to the hospital, found to have severe rhabdo with acute kidney injury. No previous lab data for the patient. Patient denied any kidney disease. No nonsteroidal. No IV contrast. Blood pressure been stable. Past Medical History: COPD. Allergies: NO KNOWN DRUG ALLERGIES. Past Surgical History: None obtainable. Family History: Positive for stroke. Social History: Active smoker, occasional alcohol, denies drug abuse. Review of Systems: Head and Neck: No red eye. No ear pain. GI: Has abdominal pain. : No polyuria. No dysuria. No hematuria. Customer Service Engineer: Not applicable. Respiratory: Has shortness of breath. Cardiovascular: No leg swelling. Endocrine: No polydipsia. Skin: No rash. Neuro: Has fall. Musculoskeletal: Generalized body ache. Physical Examination: Vital Signs: Blood pressure of 108/71, pulse of 99. Patient had urine output of 400. Chest: Clear to auscultation. Heart: S1, S2. Regular. Abdomen: Soft. Nontender. Extremity: Trace edema. Laboratory Data: WBC 4.9, H and H 16.4/49, and platelets 124. Sodium 138, potassium 4.3, bicarb 27, BUN 52, creatinine 3.2, GFR of 19, AST and ALT elevated. CK of 2900. Albumin 2.4. CT abdomen did not show any obstruction. Urinalysis showing hematuria with positive hemoglobin, wbc only 10, BC rat io 0.4. Current Medications: Azithromycin, ceftriaxone, Lovenox, Zofran, ipratropium and Solu-Medrol. Assessment And Plan: 1.Acute kidney injury secondary to rhabdomyolysis, obstructive uropathy has been ruled out, proteinu cal, non-nephrotic. I am going to go ahead and continue hydration. I will switch IV fluid to sodium bicarb and we will monitor the patient, discontinue normal saline currently. 2.Rhabdomyolysis with acute kidney injury as above. I going to go ahead and send for PTH to evaluat e the chronicity of the disease, discontinue Lasix. 3.Chronic obstructive pulmonary disease exacerbation as by primary. 4.Elevation in LFT, because of rhabdo we will monitor. 5.Urinary tract infection. Continue current antibiotics. SIENA/CHUYITA Voice ID: [id number] Report ID: [id number]
--- NOTE | 2020-02-20 13:49 | P.PN ---
Subjective Date of Service: 02/20/20 Chief Complaint: COPD SOB; on NRM Review of Systems Respiratory: Shortness of Breath Physical Examination - Vital Signs Temperature: 97 F Blood Pressure: 120/65 Pulse: 80 Respirations: 18 Pulse Ox (%): 94 - Physical Exam General: Alert, In no apparent distress HEENT: Atraumatic, PERRLA, EOMI Neck: Supple, JVD not distended Respiratory: Diminished, Expiratory wheezes Cardiovascular: Regular rate/rhythm, Normal S1 S2 Gastrointestinal: Normal bowel sounds, No tenderness Musculoskeletal: No tenderness Integumentary: No rashes Neurological: Normal speech, Normal tone, Normal affect Lymphatics: No axilla or inguinal lymphadenopathy - Studies Laboratory Data (last 24 hrs) 02/19/20 20:25: PT 12.3, INR 1.04 02/19/20 20:25: WBC 16.2 H, Hgb 16.9, Hct 50.8 H, Plt Count 137 L 02/19/20 20:25: Sodium 133 L, Potassium 3.9, BUN 48 H, Creatinine 3.14 H, Glucose 65 L, Magnesium 3.1 H, Total Bilirubin 0.9, AST 125 H, ALT 110 H, Alkaline Phosphatase 90, Lipase 89 Microbiology Data (last 24 hrs): 02/19/20 21:57 Blood - Blood Anaerobic Blood Culture - Final Assessment & Plan Physician Review Additional Text: Mr. Ruby is a 79-year-old male with # Community-acquired pneumonia-chest x-ray finding noted. -blood cultures pending. -on antibiotics, will continue. -monitor for improvements. # COPD exacerbation-causing respiratory distress. Chest x-ray with new/ progressive infiltrate consistent with pneumonia. - on prednisone, breathing treatments and supplemental oxygen. -clinical team manager on consult. #Acute kidney injury secondary to rhabdomyolysis-obstructive uropathy has been ruled out. -continue IV hydration, proprietary trader added sodium bicarb alkalinize urine. -avoid nephrotoxins. -trend creatinine. # urinary tract infection-urine culture pending # transaminitis-secondary to rhabdomyolysis; rule out viral hepatitis -trend LFT. DVT prophylaxis-SCD Patient is full code.
[2020-02-20 14:14] LABS: Arterial Blood Carboxyhemoglob 0.7 % (0-1.5); Blood Gas Oxyhemoglobin 89.6 % (94-97); Blood O2 Saturation 91.1 % (92-98.5)
[2020-02-20] MEDS: FLUTICASONE 50MCG NASAL SPRAY NAS SCH ×2 (15:55→22:09)
[2020-02-20] MEDS ORDERED: CEFTRIAXONE/SWI 1gm 1 GM/10 ML SYR IV SCH (21:00)
[2020-02-20] MEDS: CEFUROXIME 250 MG TAB PO SCH (22:08)
[2020-02-20] MEDS: predniSONE 20 MG TAB PO SCH (22:08)
[2020-02-21] MEDS: ALBUTEROL 2.5 MG/3 ML NEB SOL NEB SCH ×4 (02:00→19:40)
[2020-02-21] MEDS: IPRATROPIUM BROM 0.5MG/2.5ML NEB SCH ×4 (02:00→19:40)
[2020-02-21 06:33] LABS: Albumin 2.1 g/dL (3.4-5.0); CKMB Creatine Kinase MB 5.3 ng/mL (0.3-3.6); Magnesium 2.4 mg/dL (1.8-2.4); Phosphorus 3.6 mg/dL (2.5-4.9); Potassium 3.2 mmol/L (3.5-5.1); Thyroid Stimulating Hormone 0.916 uIU/mL (0.360-3.740)
[2020-02-21] MEDS: NACHLORIDE 0.45% 1,000 ML with NA BICARB 8.4% 75 MEQ IV SCH ×6 (09:30→22:50)
[2020-02-21] MEDS: predniSONE 20 MG TAB PO SCH ×2 (10:19→20:20)
[2020-02-21] MEDS: FLUTICASONE 50MCG NASAL SPRAY NAS SCH ×2 (10:19→20:25)
[2020-02-21] MEDS: CEFUROXIME 250 MG TAB PO SCH ×2 (10:26→20:19)
[2020-02-21] MEDS ORDERED: POTASSIUM CL SA 10 MEQ TAB PO ONE (12:00)
--- NOTE | 2020-02-21 12:01 | P.PN ---
Subjective Date of Service: 02/21/20 Chief Complaint: COPD Patient is more awake, doing better. Shortness of breath is improved. Tolerating diet. Physical Examination - Vital Signs Temperature: 97.0 F Blood Pressure: 111/66 Pulse: 84 Respirations: 19 Pulse Ox (%): 97 - Physical Exam General: Alert, In no apparent distress HEENT: Atraumatic, PERRLA, EOMI Neck: Supple, JVD not distended Respiratory: Clear to auscultation bilaterally, Diminished Cardiovascular: Regular rate/rhythm, Normal S1 S2 Gastrointestinal: Normal bowel sounds, No tenderness Musculoskeletal: No tenderness Integumentary: No rashes Neurological: Normal speech, Normal tone, Normal affect Lymphatics: No axilla or inguinal lymphadenopathy - Studies Laboratory Tests 02/20/20 02/21/20 02/21/20 03:54 05:42 05:42 WBC 4.9 D RBC 5.31 Plt Count 128 L Lymphocytes % 12.9 L Sodium 136 Potassium 3.2 L Chloride 97 L BUN 47 H Creatinine 2.35 H Estimated GFR 27 L Calcium 8.2 L D Creatine Kinase 988 H CK-MB (CK-2) 5.3 H PTH Intact 116.8 H Microbiology Data (last 24 hrs): 02/19/20 21:57 Blood - Blood Anaerobic Blood Culture - Final Assessment & Plan Physician Review Additional Text: Mr. Ruby is a 79-year-old male with # Community-acquired pneumonia-chest x-ray finding noted. -blood cultures pending. -on antibiotics, will continue. -monitor for improvements. # COPD exacerbation-causing respiratory distress. Chest x-ray with new/ progressive infiltrate consistent with pneumonia. -on prednisone, breathing treatments and supplemental oxygen. -collar packer on consult. #Acute kidney injury secondary to rhabdomyolysis-obstructive uropathy has been ruled out. -continue IV hydration, -avoid nephrotoxins. -trend creatinine. Improving. # urinary tract infection-urine culture pending # transaminitis-secondary to rhabdomyolysis; rule out viral hepatitis -trend LFT. PT/OT DVT prophylaxis-SCD Patient is full code.
--- NOTE | 2020-02-21 12:55 | P.PN ---
Subjective Date of Service: 02/21/20 Chief Complaint: COPD Subjective This is a 79-year-old with PMHX of COPD, found on the floor , had ammy and rhabdo today feels better Cr down to 2.3, CK down to 988 cont IVF PT /OT Past Medical History: COPD. Allergies: NO KNOWN DRUG ALLERGIES. Past Surgical History: None obtainable. Family History: Positive for stroke. Social History: Active smoker, occasional alcohol, denies drug abuse. general: Awake and alert , NAD Neck; Supple, No elevated JVD hear: RRR, normal S1,2 no murmur or rub Chest: CTAB, no rlaes or wheezes Abdomen: Soft , Nt Extremities No edema or ulcer Assessment And Plan: AMMY due to dehydration and rhabdo improving cont IVF Rhabdomyolysis cont IVF transaminitis improving UTI cont ABx PNA cont ABx Physical Examination - Vital Signs Temperature: 97.0 F Blood Pressure: 111/66 Pulse: 84 Respirations: 19 Pulse Ox (%): 97 - Studies Microbiology Data (last 24 hrs): 02/19/20 21:57 Blood - Blood Anaerobic Blood Culture - Final
[2020-02-21] MEDS: ACETAMINOPHEN 500 MG TAB PO PRN (18:39)
[2020-02-22] MEDS: IPRATROPIUM BROM 0.5MG/2.5ML NEB SCH ×4 (01:45→20:00)
[2020-02-22] MEDS: ALBUTEROL 2.5 MG/3 ML NEB SOL NEB SCH ×4 (01:45→20:00)
[2020-02-22 05:41] LABS: Absolute Lymphocytes (CBC) 0.2 K/uL (0.7-4.9); Basophils % 0.1 % (0-1.3); Hematocrit 36.4 % (39.6-49.0); Lymphocytes % 1.8 % (15.3-44.8); MPV 8.7 fL (7.6-11.3); RBC Red Blood Cell Count 3.96 M/uL (4.33-5.43)
[2020-02-22 06:02] LABS: Albumin 2.2 g/dL (3.4-5.0); Phosphorus 1.6 mg/dL (2.5-4.9); Potassium 3.5 mmol/L (3.5-5.1)
[2020-02-22] MEDS: NACHLORIDE 0.45% 1,000 ML with NA BICARB 8.4% 75 MEQ IV SCH ×2 (07:00)
[2020-02-22 08:57] LABS: Blood Morphology Comment NOT SEEN (NOT SEEN); Urine White Blood Cell Casts OK
[2020-02-22 08:58] LABS: Platelet Estimate DECR
[2020-02-22] MEDS: FLUTICASONE 50MCG NASAL SPRAY NAS SCH ×2 (09:00→20:06)
[2020-02-22] MEDS: CEFUROXIME 250 MG TAB PO SCH ×2 (09:00→20:06)
[2020-02-22] MEDS: predniSONE 20 MG TAB PO SCH ×2 (10:59→20:06)
[2020-02-22] MEDS ORDERED: POTASSIUM PHOS IN 0.9 % NACL 15 MMOL/250 ML BAG IV ONE (11:00)
--- NOTE | 2020-02-22 11:27 | PN ---
Date of Progress Note: 02/22/2020 Subjective: Patient was admitted with rhabdo, acute kidney injury, UTI recovered resolved. Physical Examination: Vital Signs: Blood pressure 177/94, pulse of 85, afebrile. Chest: Clear to auscultation. Heart: S1, S2 regular. Abdomen: Soft, nontender. Extremities: No edema. Laboratory Data: WBC 12, H and H 12.3/36.4, platelets 127. Sodium 137, potassium 3.5, bicarb 34, BUN 35, creatinine down to 1.6, GFR of 41, calcium 8.4, phosphorus 1.6, magnesium of 2. CK down to 975. PTH 116. Urinalysis was positive. Culture positive for E coli. Current Medications: The patient on include Tylenol, acetaminophen. IV fluid with bicarb drip, breathing treatment, Zofran, prednisone. Assessment And Plan: 1. Acute kidney injury secondary to rhabdomyolysis, toxic acute tubular necrosis, poor perfusion acute tubular necrosis, on the recovery phase, looked to me normal volume. I am going to go ahead and discontinue bicarb drip, hold intravenous fluid and we will monitor the patient. 2. Hypokalemia, hypophosphatemia. We will supplement. 3. Urinary tract infection, multi organism, E coli sensitive to cephalosporin, resistant to quinolones; and citrobacter sensitive to cephalosporin. I can agree with current antibiotic. The patient may be changed to Ceftin upon discharge for full treatment of 2 weeks. 4. Rhabdomyolysis, recovering, resolve. Discontinue intravenous fluid. JARED Voice ID: [id number] Report ID: [id number] PAUL
--- NOTE | 2020-02-22 14:20 | P.PN ---
Subjective Date of Service: 02/22/20 Chief Complaint: COPD Patient is more awake, doing better. confused. reports insomnia Physical Examination - Vital Signs Temperature: 98.1 F Blood Pressure: 129/78 Pulse: 90 Respirations: 20 Pulse Ox (%): 93 - Physical Exam General: Alert, In no apparent distress HEENT: Atraumatic, PERRLA, EOMI Neck: Supple, JVD not distended Respiratory: Clear to auscultation bilaterally, Diminished Cardiovascular: Regular rate/rhythm, Normal S1 S2 Gastrointestinal: Normal bowel sounds, No tenderness Musculoskeletal: No tenderness Integumentary: No rashes Neurological: Normal speech, Normal tone, Normal affect Lymphatics: No axilla or inguinal lymphadenopathy - Studies Microbiology Data (last 24 hrs): 02/19/20 21:10 Clean Catch Urine Norton Count - Final >100,000 CFU/ML. 02/19/20 21:10 Clean Catch Urine - Final Citrobacter Koseri Medications List Reviewed: Yes Assessment & Plan Physician Review Additional Text: Mr. Ruby is a 79-year-old male with # Community-acquired pneumonia-chest x-ray finding noted. -blood cultures pending. -sputum culture- Ecoli -on antibiotics, will continue. -monitor for improvements. # COPD exacerbation-causing respiratory distress. Chest x-ray with new/ progressive infiltrate consistent with pneumonia. -on prednisone, breathing treatments and supplemental oxygen. -open tenter operator on consult. #Acute kidney injury secondary to rhabdomyolysis-obstructive uropathy has been ruled out. -continue IV hydration, -avoid nephrotoxins. -trend creatinine. Improving. # urinary tract infection-urine culture with citrobacter koseri # transaminitis-secondary to rhabdomyolysis; ruled out viral hepatitis -trend LFT. #Recurrent falls-PT/OT DVT prophylaxis-SCD Patient is full code. Dispo- SNF. CM consulted
[2020-02-22] MEDS: ACETAMINOPHEN 500 MG TAB PO PRN (16:51)
[2020-02-23] MEDS: IPRATROPIUM BROM 0.5MG/2.5ML NEB SCH ×5 (02:00→19:45)
[2020-02-23] MEDS: ALBUTEROL 2.5 MG/3 ML NEB SOL NEB SCH ×5 (02:00→19:45)
[2020-02-23 05:56] LABS: Absolute Lymphocytes (CBC) 0.3 K/uL (0.7-4.9); Basophils % 0.2 % (0-1.3); Hematocrit 33.5 % (39.6-49.0); Lymphocytes % 3.4 % (15.3-44.8); MPV 8.1 fL (7.6-11.3)
[2020-02-23 06:00] LABS: Albumin 1.9 g/dL (3.4-5.0); Magnesium 1.9 mg/dL (1.8-2.4); Potassium 3.8 mmol/L (3.5-5.1)
[2020-02-23 06:32] LABS: Blood Morphology Comment NOT SEEN (NOT SEEN); Platelet Estimate DECR; Urine White Blood Cell Casts OK
[2020-02-23] MEDS: CEFUROXIME 250 MG TAB PO SCH ×2 (08:56→20:12)
[2020-02-23] MEDS: predniSONE 20 MG TAB PO SCH ×2 (08:57→20:13)
[2020-02-23] MEDS: FLUTICASONE 50MCG NASAL SPRAY NAS SCH ×2 (08:57→20:11)
--- NOTE | 2020-02-23 10:42 | P.PN ---
Subjective Date of Service: 02/23/20 Chief Complaint: COPD Confused. Walked into patient tachypnea and sob as he removed his NC. He is still requiring 4LNC. Physical Examination - Vital Signs Temperature: 97.8 F Blood Pressure: 134/75 Pulse: 77 Respirations: 32 Pulse Ox (%): 92 - Physical Exam General: Alert, In no apparent distress HEENT: Atraumatic, PERRLA, EOMI Neck: Supple, JVD not distended Respiratory: Normal air movement, Diminished Cardiovascular: Regular rate/rhythm, Normal S1 S2 Gastrointestinal: Normal bowel sounds, No tenderness Musculoskeletal: No tenderness Integumentary: No rashes Neurological: Normal speech, Normal tone, Normal affect Lymphatics: No axilla or inguinal lymphadenopathy - Studies Laboratory Tests 02/23/20 02/23/20 05:35 05:35 WBC 10.0 D RBC 3.60 L Plt Count 109 L Lymphocytes % 3.4 L Sodium 139 Potassium 3.8 Chloride 103 BUN 26 H Creatinine 1.28 Estimated GFR 54 L Albumin 1.9 L Microbiology Data (last 24 hrs): 02/19/20 21:10 Clean Catch Urine [place] Count - Final >100,000 CFU/ML. 02/19/20 21:10 Clean Catch Urine - Final Citrobacter Koseri Microbiology 02/20/20 02:55 Sputum Sputum Gram Stain - Final 02/20/20 02:55 Sputum Culture & Sensitivity - Final Escherichia Coli Citrobacter Koseri 02/19/20 21:10 Clean Catch Urine [place] Count - Final 02/19/20 21:10 Clean Catch Urine - Final Citrobacter Koseri >100,000 CFU/ML. Medications List Reviewed: Yes Assessment & Plan Physician Review Additional Text: Mr. Ruby is a 79-year-old male with # Community-acquired pneumonia-chest x-ray finding noted. -blood cultures no growth -sputum culture- Ecoli & citrobacter koseri? -on antibiotics, will continue. -monitor for improvements. # COPD exacerbation-causing respiratory distress. Chest x-ray with new/ progressive infiltrate consistent with pneumonia. -on prednisone, breathing treatments and supplemental oxygen. -broadcast producer on consult. #Acute kidney injury secondary to rhabdomyolysis-obstructive uropathy has been ruled out. -continue IV hydration, -avoid nephrotoxins. -trend creatinine. Improving. # urinary tract infection-urine culture with citrobacter koseri # transaminitis-secondary to rhabdomyolysis; ruled out viral hepatitis -trend LFT. #Recurrent falls-PT/OT DVT prophylaxis-SCD Patient is full code. Dispo- SNF. CM consulted
[2020-02-23] MEDS: ACETAMINOPHEN 500 MG TAB PO PRN ×2 (12:41→20:12)
[2020-02-23] MEDS ORDERED: POTASSIUM PHOS IN 0.9 % NACL 15 MMOL/250 ML BAG IV ONE (13:00)
[2020-02-23] MEDS ORDERED: MAGNESIUM SULFATE 1 gm IVPB 1 GM/100 ML BAG IV ONE (13:00)
--- NOTE | 2020-02-23 14:47 | PN ---
Date of Progress Note: 02/23/2020 Subjective: Patient was admitted with acute kidney injury secondary to rhabdo, recovered. IV fluid was discontinued yesterday. Physical Examination: Vital Signs: Blood pressure 140/69, pulse of 80, afebrile. Patient had good urine output of 1300. Chest: Clear to auscultation. Heart: S1, S2. Regular. Abdomen: Soft. Nontender. Extremities: No edema. Laboratory Data: WBC 10, H and H 10.5/33.5, platelets 109. Sodium 139, potassium 3.8, bicarb 31, BU N 26, creatinine 1.2, GFR of 54, calcium 8.1, magnesium 1.9, phosphorus of 2. Current Medications: The patient on include cefuroxime. Albuterol breathing treatment, Zofran. K a nd phos were given yesterday. Assessment And Plan: 1.Acute kidney injury secondary to rhabdomyolysis, recovered, resolved, plateaued. Currently we sara l continue to monitor. 2.Hypokalemia and hypophosphatemia. We will supplement. 3.Hypomagnesemia. We will supplement. 4.Hypocalcemia, corrected calcium within normal limits. No need for supplement, especially with the recent recovery from rhabdo. 5.Rhabdomyolysis, resolved. 6.Secondary hyperparathyroidism. No need for calcitriol. 7.Urinary tract infection secondary to E coli Citrobacter sensitive to cephalosporin. Continue curr ent antibiotic. Follow up with the primary. Patient cleared from the renal standpoint for discharge planning, going to need antibiotic of Ceftin for full 2 weeks. SIENA/CHUYITA Voice ID: [id number] Report ID: [id number]
[2020-02-23 18:28] LABS: HBsAG Nonreactive (Nonreactive)
[2020-02-24] MEDS: ALBUTEROL 2.5 MG/3 ML NEB SOL NEB SCH ×4 (01:15→20:25)
[2020-02-24] MEDS: IPRATROPIUM BROM 0.5MG/2.5ML NEB SCH ×4 (01:15→20:25)
[2020-02-24] MEDS ORDERED: clonazePAM 1 MG TAB PO ONE (01:52)
[2020-02-24 05:56] LABS: Absolute Lymphocytes (CBC) 0.4 K/uL (0.7-4.9); Basophils % 0.2 % (0-1.3); Hematocrit 35.6 % (39.6-49.0); Lymphocytes % 4.2 % (15.3-44.8); MPV 8.3 fL (7.6-11.3); RBC Red Blood Cell Count 3.88 M/uL (4.33-5.43)
[2020-02-24 06:05] LABS: Albumin 2.1 g/dL (3.4-5.0); Magnesium 2.1 mg/dL (1.8-2.4); Phosphorus 1.8 mg/dL (2.5-4.9); Potassium 3.9 mmol/L (3.5-5.1)
--- NOTE | 2020-02-24 07:27 | RAD REPORT ---
EXAM DESCRIPTION: RAD - Chest Single View - 02/24/2020 5:48 am CLINICAL HISTORY: fever COMPARISON: February 19 TECHNIQUE: AP portable chest image was obtained 02/24/2020 5:48 am . FINDINGS: Fibrotic as a baseline. Left base interstitial pneumonia pattern is still present. New int erstitial infiltrate has developed in the right upper lobe. Chronic interstitial lung disease noted e lsewhere. Failure and volume overload are not suspected. Heart and vasculature are normal. No measura ble pleural effusion and no pneumothorax. No acute bony abnormality seen. No acute aortic findings loomis spected. IMPRESSION: Left base pneumonia similar to comparison. New right upper lobe pneumonia.
[2020-02-24] MEDS: predniSONE 20 MG TAB PO SCH ×2 (08:32→21:17)
[2020-02-24] MEDS: CEFUROXIME 250 MG TAB PO SCH (08:33)
[2020-02-24] MEDS: MORPHINE 2 MG/ML SYR IV PRN ×2 (08:40→22:19)
[2020-02-24 11:10] LABS: Arterial Blood Carboxyhemoglob 1.2 % (0-1.5); Blood Gas Oxyhemoglobin 91.5 % (94-97); Blood O2 Saturation 93.5 % (92-98.5)
--- NOTE | 2020-02-24 11:11 | RAD REPORT ---
EXAM DESCRIPTION: RAD - Chest Single View - 02/24/2020 10:54 am CLINICAL HISTORY: resp difficulty, AMS COMPARISON: February 23February 19 TECHNIQUE: AP portable chest image was obtained 02/24/2020 10:54 am . FINDINGS: Fibrotic baseline interstitial pattern noted. Increased interstitial pattern in the left b ase has shown a slight improvement from the examination earlier in the day. Likewise the right upper lobe infiltrate has shown slight improvement. Right lung base and left upper lung field are stable. H eart and vasculature are normal. No measurable pleural effusion and no pneumothorax. No acute bony ab normality seen. No acute aortic findings suspected. IMPRESSION: Slight improvement in the left base and right upper lobe infiltrative finding since mohan ier examination.
--- NOTE | 2020-02-24 12:01 | P.PN ---
Subjective Date of Service: 02/24/20 Chief Complaint: COPD More SOB this morning. Tachypnea. confused and now requiring sitter. Physical Examination - Vital Signs Temperature: 97 F Blood Pressure: 157/94 Pulse: 86 Respirations: 22 Pulse Ox (%): 93 - Physical Exam General: Delirious, Other HEENT: Atraumatic, PERRLA, EOMI Neck: Supple, JVD not distended Respiratory: Diminished, Dull, Crackles/rales Cardiovascular: Regular rate/rhythm, Normal S1 S2 Gastrointestinal: Normal bowel sounds, No tenderness Musculoskeletal: No tenderness Integumentary: No rashes Neurological: Normal speech, Normal tone, Normal affect Lymphatics: No axilla or inguinal lymphadenopathy - Studies Laboratory Tests 02/20/20 02/24/20 02/24/20 10:06 05:22 05:22 WBC 9.3 RBC 3.88 L Hgb 12.0 L Hct 35.6 L Plt Count 132 L D Neutrophils % 93.2 H Sodium 137 Potassium 3.9 BUN 23 H Creatinine 1.11 Estimated GFR 64 L Glucose 98 Phosphorus 1.8 L NT-Pro-B Natriuret Pep Procalcitonin U Random Total Protein 22 H Protein/Creatinin Ratio 0.46 H 02/24/20 02/24/20 11:02 11:02 WBC RBC Hgb Hct Plt Count Neutrophils % Sodium Potassium BUN Creatinine Estimated GFR Glucose Phosphorus NT-Pro-B Natriuret Pep 1184 H Procalcitonin Pending U Random Total Protein Protein/Creatinin Ratio Medications List Reviewed: Yes Assessment & Plan Physician Review Additional Text: Mr. Ruby is a 79-year-old male with # Community-acquired pneumonia- Repeat cxr with new infiltrates. Suspect aspiration. More confused and SOB - escalate abx to broad spectrum. - consult speech pathology for assessment. -blood cultures no growth -sputum culture- Ecoli & citrobacter koseri? -monitor for improvements. # COPD exacerbation-causing respiratory distress. Chest x-ray with new/ progressive infiltrate consistent with pneumonia. -on prednisone, breathing treatments and supplemental oxygen. -transportation assistant on consult. #Acute kidney injury secondary to rhabdomyolysis-obstructive uropathy has been ruled out. -continue IV hydration, -avoid nephrotoxins. -trend creatinine. Improving. # urinary tract infection-urine culture with citrobacter koseri # transaminitis-secondary to rhabdomyolysis; ruled out viral hepatitis -trend LFT. #Recurrent falls-PT/OT #Delirium- secondary to acute infection? -sitter at bedside. DVT prophylaxis-SCD Patient is full code. Dispo- SNF. CM consulted
[2020-02-24] MEDS: VANCOMYCIN 1.5 GM in NA CHLORIDE 0.9% 500 ML IVPB SCH (14:32)
[2020-02-24] MEDS: FLUTICASONE 50MCG NASAL SPRAY NAS SCH ×2 (14:35→21:17)
[2020-02-24] MEDS: PIPER/TAZO/NS 3.375gm 3.375 GM/100 ML BAG IVPB SCH (17:21)
[2020-02-24] MEDS ORDERED: POTASSIUM PHOS IN 0.9 % NACL 15 MMOL/250 ML BAG IV ONE (20:18)
--- NOTE | 2020-02-24 20:57 | PN ---
Date of Progress Note: 02/24/2020 Chief Complaint: Acute kidney injury. History Of Present Illness: Patient was started on IV fluids to treat acute kidney injury. Patient was found to have rhabdomyolysis, which was causing acute kidney injury currently. Renal function im proved to baseline. Creatinine is 1.2 and BUN 26. There is some prerenal azotemia with high BUN-cre atinine ratio. Patient has multiple electrolyte abnormalities and was found to have hypokalemia, hyp ophosphatemia, and hypomagnesemia as well as hypocalcemia. Rhabdomyolysis resolved. Creatinine leve l has improved. Patient denies myalgia. Review of Systems: Denies fever or chills. Physical Examination: Lungs: Clear to auscultation bilaterally. Heart: S1, S2. Abdomen: Soft, benign. Extremities: No edema. Laboratory Data: Hemoglobin 12.0, WBC 9.3, platelet count is 142,000. Chemistry showed sodium 137, potassium 3.9, chloride 104, CO2 of 25, BUN 23, creatinine 1.11, phosphorus 1.8, calcium 8.0, magnesi um 2.1. Creatinine improved from 3.14 gradually to 2.35, 1.63, and 1.11. CK level was 975. The patient will continue IV fluids and plan is to advance replacement for hypophosphatemia. Monitor electrolytes, potassium, magnesium, and renal panel daily. Assessment And Plan: 1.Acute kidney injury, nicely improving with electrolytes normalization and improvement. 2.Secondary hyperparathyroidism. Monitor calcium level and phosphorus level. Patient may need nicholas min D. Monitor intact PTH. 3.Urinary tract infection with E coli and Citrobacter, sensitive to cephalosporin. Monitor renal function and adjust antibiotics as needed. EB/MODL Voice ID: [id number] Report ID: [id number]
[2020-02-24] MEDS: CEPACOL LOZENGES PO PRN (23:45)
[2020-02-25] MEDS: ALBUTEROL 2.5 MG/3 ML NEB SOL NEB SCH ×4 (01:45→20:10)
[2020-02-25] MEDS: IPRATROPIUM BROM 0.5MG/2.5ML NEB SCH ×4 (01:45→20:10)
[2020-02-25] MEDS: PIPER/TAZO/NS 3.375gm 3.375 GM/100 ML BAG IVPB SCH ×3 (02:13→16:41)
[2020-02-25] MEDS: MORPHINE 2 MG/ML SYR IV PRN (02:17)
[2020-02-25 04:33] LABS: Absolute Lymphocytes (CBC) 0.4 K/uL (0.7-4.9); Hematocrit 37.2 % (39.6-49.0); MPV 8.5 fL (7.6-11.3); RBC Red Blood Cell Count 4.08 M/uL (4.33-5.43)
[2020-02-25 04:51] LABS: Albumin 2.2 g/dL (3.4-5.0); Magnesium 1.8 mg/dL (1.8-2.4); Phosphorus 2.8 mg/dL (2.5-4.9); Potassium 4.1 mmol/L (3.5-5.1)
[2020-02-25] MEDS: FLUTICASONE 50MCG NASAL SPRAY NAS SCH ×2 (08:39→20:03)
[2020-02-25] MEDS: CEPACOL LOZENGES PO PRN (08:39)
[2020-02-25] MEDS: predniSONE 20 MG TAB PO SCH ×2 (08:39→20:03)
--- NOTE | 2020-02-25 10:06 | P.PN ---
Subjective Date of Service: 02/25/20 Chief Complaint: COPD Patient seen and examined chart reviewed and case discussed with RN. Patient is confused trying to get out of bed Review of Systems 10-point ROS is otherwise unremarkable Physical Examination - Vital Signs Temperature: 97.2 F Blood Pressure: 146/90 Pulse: 99 Respirations: 20 Pulse Ox (%): 90 - Physical Exam General: Alert, In no apparent distress, Oriented x2, Other (Frail elderly) HEENT: Atraumatic, PERRLA, EOMI Neck: Supple, JVD not distended Respiratory: Diminished Cardiovascular: No edema, Regular rate/rhythm, Normal S1 S2 Gastrointestinal: Normal bowel sounds, Soft and benign, Non-distended, No tenderness Musculoskeletal: No tenderness Integumentary: Other (Multiple ecchymoses) Neurological: Normal speech, Normal tone, Cranial nerves 3-12 intact, Normal affect - Studies Microbiology Data (last 24 hrs): 02/19/20 21:57 Blood - Blood Aerobic Blood Culture - Final No growth in 5 days. 02/19/20 21:57 Blood - Blood Anaerobic Blood Culture - Final 02/19/20 21:30 Blood - Blood Aerobic Blood Culture - Final No growth in 5 days. 02/19/20 21:30 Blood - Blood Anaerobic Blood Culture - Final No growth in 5 days. Medications List Reviewed: Yes Assessment And Plan - Code Status/Comfort Care Code Status Assessed: Yes Physician Review: Patient Assessed, Agree with Above Assessment and Plan Physician Review Additional Text: Mr. Ruby is a 79-year-old male with # Community-acquired pneumonia- Repeat cxr with new infiltrates. Suspect aspiration. More confused and SOB - escalate abx to broad spectrum. - consult speech pathology for assessment. -blood cultures no growth -sputum culture- Ecoli & citrobacter koseri? -monitor for improvements. # COPD exacerbation-causing respiratory distress. Chest x-ray shows slight improvement in the upper lobe -on prednisone, breathing treatments and supplemental oxygen. -vice president of manufacturing consulted #Acute kidney injury secondary to rhabdomyolysis-obstructive uropathy has been ruled out. -continue IV hydration, -avoid nephrotoxins. -trend creatinine. Improving. -monitor CPK level # acute cystitis with hematuria urine culture with citrobacter koseri. Continue antibiotics # transaminitis-secondary to rhabdomyolysis; ruled out viral hepatitis -trend LFT. Improving #Recurrent falls-PT/OT. Fall precautions #Delirium- secondary to acute infection? -sitter at bedside. Does follow commands DVT prophylaxis-SCD Patient is full code. Dispo- SNF. CM consulted
[2020-02-25] MEDS ORDERED: MAGNESIUM SULFATE 1 gm IVPB 1 GM/100 ML BAG IV ONE (11:37)
[2020-02-25] MEDS: VANCOMYCIN 1.5 GM in NA CHLORIDE 0.9% 500 ML IVPB SCH (12:40)
--- NOTE | 2020-02-25 13:28 | PN ---
Date of Progress Note: 02/25/2020 Subjective: Patient was admitted with rhabdomyolysis, acute kidney injury. Kidney function has been improved significantly. CK trending down. Physical Examination: Vital Signs: Blood pressure 125/77, pulse 98, afebrile. Patient had good urine output. IV fluid has been discontinued. Chest: Clear to auscultation. Heart: S1, S2 regular. Abdomen: Soft, nontender. Extremities: No edema. Neuro: Nonfocal. Laboratory Data: WBC 9.9, H and H 10.7/37.2, platelets 143. Sodium 134, potassium 4.1, bicarb 23, BUN 21, creatinine 1.1, GFR 63, calcium 8.1, phosphorus 2.8, magnesium 1.8. Latest CK of 975. Medications: Current medications the patient is on include Zosyn, vancomycin, Zofran. Assessment And Plan: 1. Acute kidney injury secondary to rhabdomyolysis, recovered, resolved. Keep holding IV fluid. 2. Hypokalemia and hypomagnesemia. We will supplement. 3. Hypocalcemia, recovered, resolved. 4. Rhabdomyolysis. CK trending to appropriate level. Hold IV fluid. 5. Secondary hyperparathyroidism. Calcium normalized. I do not see the need for calcitriol, especially with corrected calcium in the normal range. 6. Urinary tract infection secondary to Escherichia coli, Citrobacter. Continue current antibiotic. Follow up with primary. JARED Voice ID: [id number] Report ID: [id number] PAUL
[2020-02-25] MEDS: LACTULOSE 20 GM/30 ML UCUP PO PRN (21:58)
[2020-02-25] MEDS: ACETAMINOPHEN 500 MG TAB PO PRN (22:57)
[2020-02-26] MEDS: PIPER/TAZO/NS 3.375gm 3.375 GM/100 ML BAG IVPB SCH ×2 (00:32→08:35)
[2020-02-26] MEDS: ALBUTEROL 2.5 MG/3 ML NEB SOL NEB SCH ×3 (02:10→12:10)
[2020-02-26] MEDS: IPRATROPIUM BROM 0.5MG/2.5ML NEB SCH ×3 (02:10→12:10)
[2020-02-26 04:31] LABS: Absolute Lymphocytes (CBC) 0.3 K/uL (0.7-4.9); Basophils % 0.1 % (0-1.3); Hematocrit 39.1 % (39.6-49.0); MPV 9.4 fL (7.6-11.3); RBC Red Blood Cell Count 4.24 M/uL (4.33-5.43)
[2020-02-26 04:52] LABS: Albumin 2.1 g/dL (3.4-5.0); Bilirubin Total 0.9 mg/dL (0.2-1.0); Potassium 3.7 mmol/L (3.5-5.1); Protein, Total 5.3 g/dL (6.4-8.2)
[2020-02-26] MEDS: ACETAMINOPHEN 500 MG TAB PO PRN (08:33)
[2020-02-26] MEDS: FLUTICASONE 50MCG NASAL SPRAY NAS SCH ×2 (08:34→19:31)
[2020-02-26] MEDS: predniSONE 20 MG TAB PO SCH (08:35)
--- NOTE | 2020-02-26 09:15 | P.PN ---
Subjective Date of Service: 02/26/20 Chief Complaint: COPD Subjective: Doing well Patient seen and examined chart reviewed and case discussed with RN. Patient is much more alert and awake today answered questions appropriately Review of Systems 10-point ROS is otherwise unremarkable Physical Examination - Vital Signs Temperature: 96.9 F Blood Pressure: 134/79 Pulse: 94 Respirations: 18 Pulse Ox (%): 94 - Physical Exam General: Alert, Oriented x3, Mild distress, Other (Ill-appearing elderly male) HEENT: Atraumatic, PERRLA, EOMI Neck: Supple, JVD not distended Respiratory: Diminished, Other (No wheezing or stridor) Cardiovascular: No edema, Regular rate/rhythm, Normal S1 S2 Gastrointestinal: Normal bowel sounds, Soft and benign, Non-distended, No tenderness Musculoskeletal: No tenderness Integumentary: Other (Multiple ecchymoses) Neurological: Normal speech, Normal strength at 5/5 x4 extr, Normal tone, Cranial nerves 3-12 intact, Normal affect - Studies Laboratory Tests 02/19/20 02/19/20 02/19/20 20:25 20:25 20:25 WBC 16.2 H RBC 5.46 H Hgb 16.9 Hct 50.8 H MCV 93.0 MCH 31.0 MCHC 33.3 RDW 14.8 Plt Count 137 L MPV 8.0 Neutrophils % MARKING ROOM SUPERVISOR Lymphocytes % MARKING ROOM SUPERVISOR Absolute Neutrophils MARKING ROOM SUPERVISOR Segmented Neutrophils 85 H Band Neutrophils 3 H Absolute Lymphocytes MARKING ROOM SUPERVISOR Lymphocytes 6 L Monocytes 4 Absolute Monocytes MARKING ROOM SUPERVISOR Eosinophils 2 Absolute Eosinophils MARKING ROOM SUPERVISOR Absolute Basophils MARKING ROOM SUPERVISOR Morphology Comment Not seen PT 12.3 INR 1.04 Sodium 133 L Potassium 3.9 Chloride 96 L Carbon Dioxide 25 BUN 48 H Creatinine 3.14 H Estimated GFR 19 L Glucose 65 L Calcium 11.4 H Magnesium 3.1 H Total Bilirubin 0.9 Direct Bilirubin 0.3 H AST 125 H ALT 110 H Alkaline Phosphatase 90 Creatine Kinase 3179 H* CK-MB (CK-2) 15.3 H* Rapid Troponin I 0.25 H NT-Pro-B Natriuret Pep 792 H Serum Total Protein 6.1 L Albumin 2.7 L Globulin 3.4 Albumin/Globulin Ratio 0.8 L Lipase 89 Urine pH Ur Specific [place] Glucose (UA)(Auto) Urine Ketones Urine Blood Urine Nitrite Ur Leukocyte Esterase Urine Total Protein 02/19/20 21:12 WBC RBC Hgb Hct MCV MCH MCHC RDW Plt Count MPV Neutrophils % Lymphocytes % Absolute Neutrophils Segmented Neutrophils Band Neutrophils Absolute Lymphocytes Lymphocytes Monocytes Absolute Monocytes Eosinophils Absolute Eosinophils Absolute Basophils Morphology Comment PT INR Sodium Potassium Chloride Carbon Dioxide BUN Creatinine Estimated GFR Glucose Calcium Magnesium Total Bilirubin Direct Bilirubin AST ALT Alkaline Phosphatase Creatine Kinase CK-MB (CK-2) Rapid Troponin I NT-Pro-B Natriuret Pep Serum Total Protein Albumin Globulin Albumin/Globulin Ratio Lipase Urine pH 6.5 Ur Specific [place] 1.020 Glucose (UA)(Auto) Negative Urine Ketones Trace Urine Blood 2+ H Urine Nitrite Negative Ur Leukocyte Esterase Negative Urine Total Protein 2+ H Microbiology Data (last 24 hrs): Sputum culture growing E. coli and Citrobacter Urine culture growing Citrobacter Medications List Reviewed: Yes Assessment And Plan Physician Review: Patient Assessed, Agree with Above Assessment and Plan Physician Review Additional Text: Mr. Ruby is a 79-year-old male with # Community-acquired pneumonia- Repeat cxr with new infiltrates. Suspect aspiration. Patient much more alert today still 1 5 L of oxygen - escalate abx to broad spectrum. - consult speech pathology for assessment. -blood cultures no growth -sputum culture- Ecoli & citrobacter koseri -monitor for improvement. Repeat chest x-ray today. Wean off of O2 # COPD exacerbation-causing respiratory distress. Chest x-ray shows slight improvement in the upper lobe -on prednisone, breathing treatments and supplemental oxygen. -child care nurse consulted #Acute kidney injury secondary to rhabdomyolysis-obstructive uropathy has been ruled out. -continue IV hydration, -avoid nephrotoxins. -trend creatinine. Improving. -monitor CPK level. Now normalized # acute cystitis with hematuria urine culture with citrobacter koseri. Continue antibiotics # transaminitis-secondary to rhabdomyolysis; ruled out viral hepatitis -trend LFT. Improving #Recurrent falls-PT/OT. Fall precautions. #Delirium- secondary to acute infection. Resolved. DVT prophylaxis-SCD Patient is full code. Dispo- SNF. CM consulted. Patient much more alert and awake however does not wish to go to rehab. Also go back home. Will discuss further with case management. Patient is a fall risk. Lives alone
--- NOTE | 2020-02-26 10:18 | RAD REPORT ---
EXAM DESCRIPTION: RAD - Chest Single View - 02/26/2020 10:12 am CLINICAL HISTORY: PNA Chest pain. COMPARISON: Chest Single View dated 02/24/2020; Chest Single View dated 02/24/2020; Chest Single View dated 02/20/2020; Chest Single View dated 02/19/2020 FINDINGS: Portable technique limits examination quality. COPD is noted. Mild linear opacity in the left retrocardiac region likely represents infiltrate/ pneu monia. The heart is upper limit of normal in size. Trace left pleural effusion.
[2020-02-26] MEDS ORDERED: POTASSIUM CL 40 MEQ in NA CHLORIDE 0.9% 500 ML IV SCH (11:00)
[2020-02-26] MEDS: TRAMADOL HCL 50 MG TAB PO PRN ×2 (11:12→18:52)
--- NOTE | 2020-02-26 11:19 | PN ---
Date of Progress Note: 02/26/2020 History: The patient was admitted with acute kidney injury, rhabdo. The patient found to have UTI, been treated for multi-organism. Physical Examination: Vital Signs: Blood pressure 134/79, pulse of 94. General: Patient had good urine output of 800. Chest: Clear to auscultation. Heart: S1, S2. Regular. Abdomen: Soft, nontender. EXTREMITIES: No edema. Laboratory Data: WBC 8.7, H and H of 12.9/39.1, platelets 153. Sodium 136, potassium 3.7, bicarb 24 , BUN 20, creatinine 1, calcium 8.6. Current Medications: The patient on include, Zosyn, vancomycin, Tylenol, breathing treatment Zofran. Assessment And Plan: 1.Acute kidney injury secondary to rhabdomyolysis, recovered, resolved. 2.Rhabdomyolysis, off IV fluid. Kidney function back to normal. Continue to monitor off IV fluid. 3.Hypokalemia, hypomagnesemia. We will supplement. 4.Urinary tract infection secondary to E coli and Citrobacter. Continue current antibiotic. Follow up with primary. JARED Voice ID: [id number] Report ID: [id number]
[2020-02-26] MEDS: VANCOMYCIN 1.5 GM in NA CHLORIDE 0.9% 500 ML IVPB SCH (14:25)
[2020-02-26] MEDS ORDERED: CEFEPIME/SWI 1gm 10 ML IV SCH (17:00)
--- NOTE | 2020-02-26 17:10 | P.PN ---
Subjective Date of Service: 03/07/20 Chief Complaint: COPD P agitated and c/o LL Q. Want nose sprays. No fever not eating Afebrile Review of Systems Respiratory: Shortness of Breath Gastrointestinal: Abdominal Pain Physical Examination - Vital Signs Temperature: 97.2 F Blood Pressure: 172/96 Pulse: 89 Respirations: 20 Pulse Ox (%): 93 - Physical Exam General: Alert, Moderate distress Neck: Supple Respiratory: Clear to auscultation bilaterally Cardiovascular: No edema, Regular rate/rhythm Gastrointestinal: Tenderness (LLQ) - Studies Medications List Reviewed: Yes Assessment & Plan - Problems (Diagnosis) (1) COPD (chronic obstructive pulmonary disease) Current Visit: Yes Status: Acute Plan: AW COPD. CW BD's. No evidence of sepsis. Change to Cefuroxime. Labs normal. Kit lify for home O2. Agitated. Stop pred and Seroquel prn Qualifiers: COPD type: unspecified COPD Qualified Code(s): J44.9 - Chronic obstructive pulmonary disease, unspecified Physician Review: Patient Assessed, Agree with Above Assessment and Plan
[2020-02-26] MEDS: CEFUROXIME 250 MG TAB PO SCH (19:30)
[2020-02-26] MEDS: QUETIAPINE 25 MG TAB PO SCH (19:31)
[2020-02-26] MEDS: CEPACOL LOZENGES PO PRN (19:31)
[2020-02-26] MEDS ORDERED: WATER FOR INJ,STERILE 10 ML IM PRN (20:15)
[2020-02-26] MEDS ORDERED: ZIPRASIDONE MESYLA 20 MG/VIAL IM ONE (20:15)
[2020-02-26] MEDS ORDERED: QUETIAPINE 25 MG TAB PO SCH (21:00)
[2020-02-27] MEDS: LACTULOSE 20 GM/30 ML UCUP PO PRN (00:26)
[2020-02-27] MEDS: ARFORMOTEROL TARTRATE 15 MCG/2 ML VIAL.NEB NEB SCH ×3 (01:03→19:20)
[2020-02-27] MEDS: ALBUTEROL 2.5 MG/3 ML NEB SOL NEB SCH ×5 (01:03→19:20)
[2020-02-27] MEDS: IPRATROPIUM BROM 0.5MG/2.5ML NEB SCH ×5 (01:03→19:20)
[2020-02-27] MEDS: TRAMADOL HCL 50 MG TAB PO PRN ×3 (03:23→20:09)
[2020-02-27 04:33] LABS: Absolute Lymphocytes (CBC) 0.9 K/uL (0.7-4.9); Basophils % 0.2 % (0-1.3); Hematocrit 40.1 % (39.6-49.0); Lymphocytes % 8.2 % (15.3-44.8)
[2020-02-27 04:46] LABS: Albumin 2.1 g/dL (3.4-5.0); Bilirubin Total 0.7 mg/dL (0.2-1.0); Potassium 3.6 mmol/L (3.5-5.1); Protein, Total 5.5 g/dL (6.4-8.2)
[2020-02-27 05:04] LABS: Blood Morphology Comment NOT SEEN (NOT SEEN); Platelet Estimate ADEQ; Toxic Granulation 2+
[2020-02-27] MEDS: QUETIAPINE 25 MG TAB PO SCH ×2 (08:07→20:08)
[2020-02-27] MEDS: FLUTICASONE 50MCG NASAL SPRAY NAS SCH ×2 (08:07→20:10)
[2020-02-27] MEDS: CEFUROXIME 250 MG TAB PO SCH ×2 (08:07→20:08)
[2020-02-27] MEDS: ACETAMINOPHEN 500 MG TAB PO PRN (10:22)
--- NOTE | 2020-02-27 11:36 | PN ---
Date of Progress Note: 02/27/2020 Subjective: Patient doing well. Patient was admitted with rhabdo and acute kidney injury with UTI. After hydration, rhabdo has been resolved. Patient is still confused. Physical Examination: Vital Signs: Blood pressure 136/87, pulse of 100, afebrile. Patient had good urine output of 800. Chest: Clear to auscultation. Heart: S1, S2. Systolic murmur. Abdomen: Soft, nontender. Extremities: No edema. Neurologic: Alert. Not oriented. Laboratory Data: WBC 10.6, H and H 13.4/40.1, platelets 179. Sodium 139, potassium 3.6, bicarb 23, BUN 22, creatinine 1, calcium 8.9. Medications: Current medications the patient on include: 1.Cefuroxime. 2.Tylenol. 3.Geodon. 4.Lactulose. 5.Breathing treatment. 6.Zofran. 7.Tramadol. Assessment And Plan: 1.Acute kidney injury secondary to rhabdomyolysis and prerenal, recovered, resolved. 2.Hypertension, controlled, optimal. Continue current treatment. 3.Rhabdomyolysis, recovered, resolved. 4.Urinary tract infection secondary to Escherichia coli, Citrobacter. Patient was started on Ceftin , responding very well. We will follow up with primary. 5.Hypokalemia. I will supplement. JARED Voice ID: [id number] Report ID: [id number]
[2020-02-27] MEDS ORDERED: POTASSIUM CL 40 MEQ in NA CHLORIDE 0.9% 500 ML IV SCH (12:00)
[2020-02-27] MEDS ORDERED: NA CHLORIDE 0.9% 250 ML ONE (12:32)
--- NOTE | 2020-02-27 12:53 | RAD REPORT ---
EXAM DESCRIPTION: RAD - Barium Swallow Modified - 02/27/2020 12:47 pm CLINICAL HISTORY: to check for aspiration Dysphagia, possible aspiration COMPARISON: No comparisons TECHNIQUE: The patient was given liquid, semi-solid and solid forms of barium. Lateral view fluorosc opic imaging was performed in conjunction with speech pathology service. FINDINGS: Laryngeal penetration not cleared with teaspoon of thin. Aspiration with cough with cup si p of thin. Moderate pharyngeal residue vallecular pyriform. Only partial dentures worn for exam. Ther e is reduced bolus manipulation. Oral transit time increased with increase in viscosity. There was pr emature loss of bolus over the tongue base and mild delay in swallow onset. Hyolaryngeal elevation is reduced and there is poor sensation. Fatigue is a factor and there was reduced endurance for the jose m dy. Total fluoroscopy time: 3 minutes and 48 seconds
[2020-02-27] MEDS ORDERED: VANCOMYCIN 1.75 GM in NA CHLORIDE 0.9% 500 ML IVPB SCH (13:00)
--- NOTE | 2020-02-27 15:58 | P.PN ---
Subjective Date of Service: 02/27/20 Chief Complaint: COPD Subjective: Worsening Patient seen and examined chart reviewed and case discussed with RN. Patient seems to be having more difficulty breathing. Currently on 5 L. Had modified barium swallow study done today and was placed on nectar thickened liquids Review of Systems 10-point ROS is otherwise unremarkable Respiratory: As per HPI Physical Examination - Vital Signs Temperature: 98.6 F Blood Pressure: 100/70 Pulse: 94 Respirations: 19 Pulse Ox (%): 90 - Physical Exam General: Alert, Oriented x3, Mild distress, Other (Ill-appearing elderly male) HEENT: Atraumatic, PERRLA, EOMI Neck: Supple, JVD not distended Respiratory: Diminished, Other (No wheezing or stridor) Cardiovascular: No edema, Regular rate/rhythm, Normal S1 S2 Gastrointestinal: Normal bowel sounds, Soft and benign, Non-distended, No tenderness Musculoskeletal: No tenderness Integumentary: No rashes Neurological: Normal speech, Normal strength at 5/5 x4 extr, Normal tone, Normal affect - Studies Laboratory Tests 02/19/20 02/19/20 02/19/20 20:25 20:25 20:25 WBC 16.2 H RBC 5.46 H Hgb 16.9 Hct 50.8 H MCV 93.0 MCH 31.0 MCHC 33.3 RDW 14.8 Plt Count 137 L MPV 8.0 Neutrophils % MEDIA ASSOCIATE Lymphocytes % MEDIA ASSOCIATE Absolute Neutrophils MEDIA ASSOCIATE Segmented Neutrophils 85 H Band Neutrophils 3 H Absolute Lymphocytes MEDIA ASSOCIATE Lymphocytes 6 L Monocytes 4 Absolute Monocytes MEDIA ASSOCIATE Eosinophils 2 Absolute Eosinophils MEDIA ASSOCIATE Absolute Basophils MEDIA ASSOCIATE Morphology Comment Not seen PT 12.3 INR 1.04 Sodium 133 L Potassium 3.9 Chloride 96 L Carbon Dioxide 25 BUN 48 H Creatinine 3.14 H Estimated GFR 19 L Glucose 65 L Calcium 11.4 H Magnesium 3.1 H Total Bilirubin 0.9 Direct Bilirubin 0.3 H AST 125 H ALT 110 H Alkaline Phosphatase 90 Creatine Kinase 3179 H* CK-MB (CK-2) 15.3 H* Rapid Troponin I 0.25 H NT-Pro-B Natriuret Pep 792 H Serum Total Protein 6.1 L Albumin 2.7 L Globulin 3.4 Albumin/Globulin Ratio 0.8 L Lipase 89 Urine pH Ur Specific [place] Glucose (UA)(Auto) Urine Ketones Urine Blood Urine Nitrite Ur Leukocyte Esterase Urine Total Protein 02/19/20 21:12 WBC RBC Hgb Hct MCV MCH MCHC RDW Plt Count MPV Neutrophils % Lymphocytes % Absolute Neutrophils Segmented Neutrophils Band Neutrophils Absolute Lymphocytes Lymphocytes Monocytes Absolute Monocytes Eosinophils Absolute Eosinophils Absolute Basophils Morphology Comment PT INR Sodium Potassium Chloride Carbon Dioxide BUN Creatinine Estimated GFR Glucose Calcium Magnesium Total Bilirubin Direct Bilirubin AST ALT Alkaline Phosphatase Creatine Kinase CK-MB (CK-2) Rapid Troponin I NT-Pro-B Natriuret Pep Serum Total Protein Albumin Globulin Albumin/Globulin Ratio Lipase Urine pH 6.5 Ur Specific [place] 1.020 Glucose (UA)(Auto) Negative Urine Ketones Trace Urine Blood 2+ H Urine Nitrite Negative Ur Leukocyte Esterase Negative Urine Total Protein 2+ H Medications List Reviewed: Yes Assessment And Plan Physician Review: Patient Assessed, Agree with Above Assessment and Plan Physician Review Additional Text: Mr. Ruby is a 79-year-old male with # Community-acquired pneumonia- patient still requiring 5 L of oxygen. Will repeat chest x-ray and obtain ABG - antibiotic switch to Ceftin - speech pathology recommends nectar thickened liquids. Possible silent aspiration -blood cultures no growth -sputum culture- Ecoli & citrobacter koseri -monitor for improvement. Repeat chest x-ray today. Wean off of O2 # COPD exacerbation-causing respiratory distress. repeat chest x-ray -on prednisone, breathing treatments and supplemental oxygen. -agency legal counsel consulted #Acute kidney injury secondary to rhabdomyolysis-obstructive uropathy has been ruled out. -continue IV hydration, -avoid nephrotoxins. -trend creatinine. Improving. -monitor CPK level. Now normalized. Patient nephrology input # acute cystitis with hematuria urine culture with citrobacter koseri. Continue antibiotics # transaminitis-secondary to rhabdomyolysis; ruled out viral hepatitis -trend LFT. Improving #Recurrent falls-PT/OT. Fall precautions. #Delirium- secondary to acute infection. Resolved. DVT prophylaxis-SCD Patient is full code. Dispo- SNF. CM consulted. Patient much more alert and awake however does not wish to go to rehab. Wants to go back home. Will discuss further with case management. Patient is a fall risk. Lives alone. No family has been a able to be contacted daughter in [place] has not replied back. Patient to be discharged to home with home health once medically stable and weaned off of O2. May need to set up home oxygen
--- NOTE | 2020-02-27 16:25 | RAD REPORT ---
EXAM DESCRIPTION: RAD - Chest Single View - 02/27/2020 4:17 pm CLINICAL HISTORY: for comparison Chest pain. COMPARISON: Chest Single View dated 02/26/2020; Chest Single View dated 02/24/2020; Chest Single View d ated 02/24/2020; Chest Single View dated 02/20/2020; Barium Swallow Modified dated 02/27/2020 FINDINGS: Portable technique limits examination quality. Lungs are mildly emphysematous with small opacity in the left lung base likely small residual infiltr ate, essentially unchanged. The heart is normal in size. No displaced fractures. IMPRESSION: Mild residual infiltrate left base.
[2020-02-27 16:31] LABS: Arterial Blood Carboxyhemoglob 0.9 % (0-1.5); Blood Gas Oxyhemoglobin 85.3 % (94-97)
[2020-02-28] MEDS: ALBUTEROL 2.5 MG/3 ML NEB SOL NEB SCH ×4 (01:40→19:30)
[2020-02-28] MEDS: IPRATROPIUM BROM 0.5MG/2.5ML NEB SCH ×4 (01:40→19:30)
[2020-02-28 06:17] LABS: Bilirubin Total 0.6 mg/dL (0.2-1.0); Potassium 3.9 mmol/L (3.5-5.1); Protein, Total 5.2 g/dL (6.4-8.2)
[2020-02-28 06:21] LABS: Absolute Lymphocytes (CBC) 0.7 K/uL (0.7-4.9); Basophils % 0.1 % (0-1.3); Hematocrit 37.2 % (39.6-49.0); Lymphocytes % 5.9 % (15.3-44.8); MPV 9.2 fL (7.6-11.3); RBC Red Blood Cell Count 4.02 M/uL (4.33-5.43)
[2020-02-28] MEDS: ARFORMOTEROL TARTRATE 15 MCG/2 ML VIAL.NEB NEB SCH ×2 (07:50→19:30)
[2020-02-28 07:55] LABS: Blood Morphology Comment NOT SEEN (NOT SEEN); Platelet Estimate ADEQ; Toxic Granulation PRESENT
[2020-02-28] MEDS: TRAMADOL HCL 50 MG TAB PO PRN ×2 (09:37→21:41)
[2020-02-28] MEDS: CEFUROXIME 250 MG TAB PO SCH ×2 (09:38→21:41)
[2020-02-28] MEDS: FLUTICASONE 50MCG NASAL SPRAY NAS SCH ×2 (09:38→21:42)
[2020-02-28] MEDS: QUETIAPINE 25 MG TAB PO SCH ×2 (09:38→21:41)
[2020-02-28] MEDS: LACTULOSE 20 GM/30 ML UCUP PO PRN (09:38)
--- NOTE | 2020-02-28 10:53 | P.PN ---
Subjective Date of Service: 02/29/20 Chief Complaint: COPD Subjective This is a 79-year-old with PMHX of COPD, found on the floor , had ammy and rhabdo today lethargic, cont to require oxygen RFT stable NA wnl cont current management Past Medical History: COPD. Allergies: NO KNOWN DRUG ALLERGIES. Past Surgical History: None obtainable. Family History: Positive for stroke. Social History: Active smoker, occasional alcohol, denies drug abuse. general: Awake and alert , NAD Neck; Supple, No elevated JVD hear: RRR, normal S1,2 no murmur or rub Chest: CTAB, no rlaes or wheezes Abdomen: Soft , Nt Extremities No edema or ulcer Assessment And Plan: AMMY due to dehydration and rhabdo resolved cont IVF Rhabdomyolysis cont IVF transaminitis resolved UTI cont ABx PNA cont ABx O2 as needed total time spent 35 minutes Physical Examination - Vital Signs Temperature: 97.9 F Blood Pressure: 140/80 Pulse: 103 Respirations: 18 Pulse Ox (%): 92 - Studies Medications List Reviewed: Yes Assessment And Plan Physician Review: Patient Assessed, Agree with Above Assessment and Plan
--- NOTE | 2020-02-28 14:47 | P.DS ---
Admission Date: 02/19/20 Discharge Date: 02/28/20 Disposition: TRANSFER TO [facility] Discharge Condition: FAIR Reason for Admission: COPD Consultations: Pulmonology Dr. Fleming Nephrology Anabel Oliver Brief History of Present Illness: From H and P Patient is a 79-year-old gentleman who is a very poor historian who comes into the hospital when after falling. He was found on the floor and apparently he had been there for 3-4 days. In the emergency room he was found have an elevated CPK. He had a CT traumogram without contrast which did not reveal any significant pathology. Patient did have acute kidney injury and he was started on IV hydration. Patient was given a couple doses of morphine for pain. He has been on more lethargic since he got the pain medication. Will monitor him closely. We did try to contact family; however, unsure if there is any family to contact. At this time, patient will be admitted to the hospital for further evaluation. Hospital Course: Patient is a 71-year-old male with past medical history of COPD came into the hospital after a fall. Patient was found to have pneumonia and COPD exacerbation and due to the fall had rhabdomyolysis and acute kidney injury. He was started on IV fluids, IV antibiotics. Cultures were obtained. Sputum culture grew out E. coli and Citrobacter. the urine culture also grew out Citrobacter. Patient was seen by nephrology. His kidney function improved and normalized. Patient did have some delirium due to his acute infection. Patient was also started on steroids and nebulizer treatments. Due to his COPD he was requiring oxygen. Patient's repeat chest x-ray is improved. He was able to be weaned off of Venti-Mask still requiring 3-4 L of oxygen via nasal cannula. Home oxygen was set up. Patient was recommended to go to [facility] facility or inpatient rehab. However patient continued to refuse he understands the consequences of going home and having another fall as he is still weak. Family was contacted multiple times however no answer. There is a daughter in [place]. Patient is alert oriented x3. Home health was set up with physical therapy and home health aid as well as RN to check on the patient. He understands that due to his risk of falls he may have a repeat of his condition may have broken hip brain bleed or other injury even . She again does not wish to go to a [facility] facility or inpatient rehab understanding the risks and benefits. Patient was then discharged home with home health services and home O2. # Community-acquired pneumonia- -blood cultures no growth -sputum culture- Ecoli & citrobacter koseri -Repeat chest x-ray improved. # COPD exacerbation-resolved. Stable chronic. Requiring supplemental oxygen. Continue followup with pulmonology as an outpatient #Acute kidney injury secondary to rhabdomyolysis-obstructive uropathy has been ruled out. -avoid nephrotoxins. -Now normalized. Patient nephrology input # acute cystitis with hematuria urine culture with citrobacter koseri. Treatment completed with IV antibiotics # transaminitis-secondary to rhabdomyolysis; ruled out viral hepatitis -resolved #Recurrent falls-PT/OT. Fall precautions. # dysphagia. Patient on a pureed and nectar thickened liquids diet. Continue speech therapy recommendations at home #Delirium- secondary to acute infection. Resolved. Vital Signs/Physical Exam: Temp Pulse Resp BP Pulse Ox 97.4 F 105 H 18 96/52 L 90 L 02/28/20 12:00 02/28/20 12:00 02/28/20 12:00 02/28/20 12:02/28/20 12:00 General: Alert, In no apparent distress, Oriented x3, Other (Elderly male) HEENT: Atraumatic, PERRLA, EOMI Neck: Supple, JVD not distended Respiratory: Diminished (Slightly diminished at the left base otherwise moving air well bilateral apices. No wheezing or stridor no use of accessory muscles) Cardiovascular: No edema, Regular rate/rhythm, Normal S1 S2 Gastrointestinal: Normal bowel sounds, Soft and benign, Non-distended, No tenderness Musculoskeletal: No tenderness Integumentary: No rashes Neurological: Normal speech, Normal strength at 5/5 x4 extr, Normal tone, Cranial nerves 3-12 intact, Normal affect Laboratory Data at Discharge: WBC 11.2 K/uL (4.3-10.9) H 02/28/20 05:26 Hgb 12.6 g/dL (13.6-17.9) L 02/28/20 05:26 Hct 37.2 % (39.6-49.0) L 02/28/20 05:26 Plt Count 214 K/uL (152-406) 02/28/20 05:26 PT 12.3 SECONDS (9.5-12.5) 02/20/20 05:45 INR 1.04 02/20/20 05:45 APTT 26.0 SECONDS (24.3-36.9) 02/20/20 05:45 Sodium 137 mmol/L (136-145) 02/28/20 05:26 Potassium 3.9 mmol/L (3.5-5.1) 02/28/20 05:26 BUN 24 mg/dL (7-18) H 02/28/20 05:26 Creatinine 1.24 mg/dL (0.55-1.3) 02/28/20 05:26 Glucose 92 mg/dL (74-106) 02/28/20 05:26 Phosphorus 2.8 mg/dL (2.5-4.9) D 02/25/20 04:23 Magnesium 1.8 mg/dL (1.8-2.4) 02/25/20 04:23 Total Bilirubin 0.6 mg/dL (0.2-1.0) 02/28/20 05:26 AST 24 U/L (15-37) 02/28/20 05:26 ALT 66 U/L (12-78) 02/28/20 05:26 Alkaline Phosphatase 99 U/L (45-117) 02/28/20 05:26 Troponin I 0.23 ng/mL (0.0-0.045) H 02/20/20 09:08 Lipase 89 U/L (73-393) 02/19/20 20:25 Home Medications: Budesonide/Formoterol Fumarate [Symbicort 160-4.5 Mcg Inhaler] 2 puff IH BID predniSONE [Prednisone*] 20 mg PO DAILY 02/25/20 Cefuroxime Axetil [Cefuroxime] 500 mg PO BID #12 tab 02/27/20 Fluticasone [Flonase 50MCG Nasal [place]*] 1 sprays LISSETTE BID #1 btl 02/27/20 New Medications: Cefuroxime Axetil [Cefuroxime] 500 mg PO BID #12 tab Fluticasone [Flonase 50MCG Nasal [place]*] 1 sprays LISSETTE BID #1 btl Patient Discharge Instructions: Follow up with primary care physician 2-3 days. Return to ER for worsening condition Diet: AHA Activity: Fall precautions Time spent managing pt's care (in minutes): 39
[2020-02-29] MEDS: IPRATROPIUM BROM 0.5MG/2.5ML NEB SCH ×4 (01:10→19:50)
[2020-02-29] MEDS: ALBUTEROL 2.5 MG/3 ML NEB SOL NEB SCH ×4 (01:10→19:50)
[2020-02-29 06:21] LABS: Basophils % 0.2 % (0-1.3); Hematocrit 35.4 % (39.6-49.0); Lymphocytes % 10.2 % (15.3-44.8); MPV 8.8 fL (7.6-11.3)
[2020-02-29 07:15] LABS: Albumin 1.7 g/dL (3.4-5.0); Bilirubin Total 0.6 mg/dL (0.2-1.0); Potassium 3.6 mmol/L (3.5-5.1); Protein, Total 4.9 g/dL (6.4-8.2)
[2020-02-29] MEDS: CEFUROXIME 250 MG TAB PO SCH ×2 (08:00→21:38)
[2020-02-29] MEDS: TRAMADOL HCL 50 MG TAB PO PRN ×2 (08:01→21:37)
[2020-02-29] MEDS: QUETIAPINE 25 MG TAB PO SCH ×2 (08:01→21:38)
[2020-02-29] MEDS: FLUTICASONE 50MCG NASAL SPRAY NAS SCH ×2 (08:04→21:38)
--- NOTE | 2020-02-29 11:59 | P.PN ---
Subjective Date of Service: 02/29/20 Chief Complaint: COPD Subjective: No new changes Patient seen and examined chart reviewed and case discussed with RN. Patient discharged yesterday due to his current condition with being weak he was unable to take care of himself at home and was considered not safe for discharge despite patient's refusal to go to [facility] for inpatient rehab. His breathing is better Review of Systems 10-point ROS is otherwise unremarkable Respiratory: As per HPI Physical Examination - Vital Signs Temperature: 97.8 F Blood Pressure: 124/72 Pulse: 99 Respirations: 18 Pulse Ox (%): 95 - Physical Exam General: Alert, In no apparent distress, Oriented x2, Other (Elderly male) HEENT: Atraumatic, PERRLA, EOMI Neck: Supple, JVD not distended Respiratory: Normal air movement (Except left base however significantly improved), Other (No wheezing or stridor) Cardiovascular: Regular rate/rhythm, Normal S1 S2 Gastrointestinal: Normal bowel sounds, Soft and benign, Non-distended, No tenderness Musculoskeletal: No tenderness Integumentary: No rashes Neurological: Normal speech, Normal tone, Normal affect - Studies Laboratory Tests 02/19/20 02/19/20 02/19/20 20:25 20:25 20:25 WBC 16.2 H RBC 5.46 H Hgb 16.9 Hct 50.8 H MCV 93.0 MCH 31.0 MCHC 33.3 RDW 14.8 Plt Count 137 L MPV 8.0 Neutrophils % NEWCOMER HOSTESS Lymphocytes % NEWCOMER HOSTESS Absolute Neutrophils NEWCOMER HOSTESS Segmented Neutrophils 85 H Band Neutrophils 3 H Absolute Lymphocytes NEWCOMER HOSTESS Lymphocytes 6 L Monocytes 4 Absolute Monocytes NEWCOMER HOSTESS Eosinophils 2 Absolute Eosinophils NEWCOMER HOSTESS Absolute Basophils NEWCOMER HOSTESS Morphology Comment Not seen PT 12.3 INR 1.04 Sodium 133 L Potassium 3.9 Chloride 96 L Carbon Dioxide 25 BUN 48 H Creatinine 3.14 H Estimated GFR 19 L Glucose 65 L Calcium 11.4 H Magnesium 3.1 H Total Bilirubin 0.9 Direct Bilirubin 0.3 H AST 125 H ALT 110 H Alkaline Phosphatase 90 Creatine Kinase 3179 H* CK-MB (CK-2) 15.3 H* Rapid Troponin I 0.25 H NT-Pro-B Natriuret Pep 792 H Serum Total Protein 6.1 L Albumin 2.7 L Globulin 3.4 Albumin/Globulin Ratio 0.8 L Lipase 89 Urine pH Ur Specific [place] Glucose (UA)(Auto) Urine Ketones Urine Blood Urine Nitrite Ur Leukocyte Esterase Urine Total Protein 02/19/20 21:12 WBC RBC Hgb Hct MCV MCH MCHC RDW Plt Count MPV Neutrophils % Lymphocytes % Absolute Neutrophils Segmented Neutrophils Band Neutrophils Absolute Lymphocytes Lymphocytes Monocytes Absolute Monocytes Eosinophils Absolute Eosinophils Absolute Basophils Morphology Comment PT INR Sodium Potassium Chloride Carbon Dioxide BUN Creatinine Estimated GFR Glucose Calcium Magnesium Total Bilirubin Direct Bilirubin AST ALT Alkaline Phosphatase Creatine Kinase CK-MB (CK-2) Rapid Troponin I NT-Pro-B Natriuret Pep Serum Total Protein Albumin Globulin Albumin/Globulin Ratio Lipase Urine pH 6.5 Ur Specific [place] 1.020 Glucose (UA)(Auto) Negative Urine Ketones Trace Urine Blood 2+ H Urine Nitrite Negative Ur Leukocyte Esterase Negative Urine Total Protein 2+ H Medications List Reviewed: Yes Assessment And Plan Physician Review: Patient Assessed, Agree with Above Assessment and Plan Physician Review Additional Text: Mr. Ruby is a 79-year-old male with # Community-acquired pneumonia- patient still requiring 4 L of oxygen. - continue Ceftin - speech pathology recommends nectar thickened liquids. Possible silent aspiration -blood cultures no growth -sputum culture- Ecoli & citrobacter koseri -keep O2 89-91% # COPD exacerbation-wean off of steroids no further wheezing, continue breathing treatments and supplemental oxygen. -math and science instructor consulted #Acute kidney injury secondary to rhabdomyolysis-obstructive uropathy has been ruled out. -continue IV hydration, -avoid nephrotoxins. -trend creatinine. Improving. -appreciate nephrology input # acute cystitis with hematuria urine culture with citrobacter koseri. Treatment completed with antibiotics # transaminitis-secondary to rhabdomyolysis; ruled out viral hepatitis -resolved #Recurrent falls-PT/OT. Fall precautions. #Delirium- secondary to acute infection. Resolved. DVT prophylaxis-SCD Patient is full code. Dispo- SNF. CM consulted. Patient much more alert and awake however does not wish to go to rehab. Wants to go back home. Will discuss further with case management. Patient is a fall risk. Lives alone. No family has been a able to be contacted daughter in [place] has not replied back. Patient does not seem to have the capacity to make this decision has he does not understands the risks of falling at home. He simply states that how will just call somebody for help patient is not safe to go home. Spoke with psychiatrist Dr. Santos who will see the patient on Monday to determine capacity.
--- NOTE | 2020-02-29 13:20 | P.PN ---
Subjective Date of Service: 03/01/20 Chief Complaint: COPD Subjective This is a 79-year-old with PMHX of COPD, found on the floor , had ammy and rhabdo today more alert , cont to require oxygen RFT stable Na wnl cont current management plan to discharge to SNF Past Medical History: COPD. Allergies: NO KNOWN DRUG ALLERGIES. Past Surgical History: None obtainable. Family History: Positive for stroke. Social History: Active smoker, occasional alcohol, denies drug abuse. general: Awake and alert , NAD Neck; Supple, No elevated JVD hear: RRR, normal S1,2 no murmur or rub Chest: CTAB, no rlaes or wheezes Abdomen: Soft , Nt Extremities No edema or ulcer Assessment And Plan: AMMY due to dehydration and rhabdo resolved cont IVF Rhabdomyolysis cont IVF transaminitis resolved UTI cont ABx PNA cont ABx O2 as needed total time spent 35 minutes Physical Examination - Vital Signs Temperature: 97.9 F Blood Pressure: 140/80 Pulse: 103 Respirations: 18 Pulse Ox (%): 92 - Studies Medications List Reviewed: Yes Assessment And Plan Physician Review: Patient Assessed, Agree with Above Assessment and Plan
[2020-02-29] MEDS: ARFORMOTEROL TARTRATE 15 MCG/2 ML VIAL.NEB NEB SCH ×2 (14:47→19:50)
[2020-03-01] MEDS: IPRATROPIUM BROM 0.5MG/2.5ML NEB SCH ×4 (01:30→19:35)
[2020-03-01] MEDS: ALBUTEROL 2.5 MG/3 ML NEB SOL NEB SCH ×4 (01:30→19:35)
[2020-03-01] MEDS: ACETAMINOPHEN 500 MG TAB PO PRN (02:00)
--- NOTE | 2020-03-01 07:14 | P.PN ---
Subjective Date of Service: 03/01/20 Chief Complaint: COPD Subjective: No new changes Patient seen and examined chart reviewed and case discussed with RN. Patient doing well this morning.. No acute events overnight Review of Systems 10-point ROS is otherwise unremarkable Physical Examination - Vital Signs Temperature: 97.6 F Blood Pressure: 108/56 Pulse: 102 Respirations: 20 Pulse Ox (%): 90 - Physical Exam General: Alert, In no apparent distress, Oriented x2, Other (Elderly male frail) HEENT: Atraumatic, PERRLA, EOMI Neck: Supple, JVD not distended Respiratory: Clear to auscultation bilaterally, Normal air movement Cardiovascular: No edema, Normal pulses, Normal S1 S2, Irregular heart rate/ rhythm (Sinus tachycardia) Gastrointestinal: Normal bowel sounds, Soft and benign, Non-distended, No tenderness Musculoskeletal: No tenderness Integumentary: No rashes Neurological: Normal speech, Normal tone, Cranial nerves 3-12 intact, Normal affect - Studies Medications List Reviewed: Yes Assessment And Plan Physician Review: Patient Assessed, Agree with Above Assessment and Plan Physician Review Additional Text: Mr. Ruby is a 79-year-old male with # Community-acquired pneumonia- patient still requiring 4 L of oxygen. - continue Ceftin - speech pathology recommends nectar thickened liquids. Possible silent aspiration -blood cultures no growth -sputum culture- Ecoli & citrobacter koseri -keep O2 89-91% # COPD exacerbation-weaned off of steroids no further wheezing, continue breathing treatments and supplemental oxygen. -learning designer consulted #Acute kidney injury secondary to rhabdomyolysis-obstructive uropathy has been ruled out. -continue IV hydration, -avoid nephrotoxins. -trend creatinine. Now normalized -appreciate nephrology input # acute cystitis with hematuria urine culture with citrobacter koseri. Treatment completed with antibiotics # transaminitis-secondary to rhabdomyolysis; ruled out viral hepatitis -resolved #Recurrent falls-PT/OT. Fall precautions. #Delirium- secondary to acute infection. Resolved. DVT prophylaxis-SCD Patient is full code. Dispo- SNF. CM consulted. Patient much more alert and awake however does not wish to go to rehab. Wants to go back home. Will discuss further with case management. Patient is a fall risk. Lives alone. No family has been a able to be contacted daughter in [place] has not replied back. Patient does not seem to have the capacity to make this decision has he does not understands the risks of falling at home. He simply states that he will just call somebody for help patient is not safe to go home. Spoke with psychiatrist Dr. Santos who will see the patient on Monday to determine capacity.
[2020-03-01] MEDS: ARFORMOTEROL TARTRATE 15 MCG/2 ML VIAL.NEB NEB SCH ×2 (07:20→19:35)
[2020-03-01] MEDS: FLUTICASONE 50MCG NASAL SPRAY NAS SCH ×2 (08:12→20:08)
[2020-03-01] MEDS: QUETIAPINE 25 MG TAB PO SCH ×2 (08:12→20:07)
[2020-03-01] MEDS: CEFUROXIME 250 MG TAB PO SCH ×2 (08:12→20:07)
--- NOTE | 2020-03-01 10:48 | P.PN ---
Subjective Date of Service: 03/01/20 Chief Complaint: COPD Subjective This is a 79-year-old with PMHX of COPD, found on the floor , had ammy and rhabdo today more alert , cont to require oxygen RFT stable Na wnl cont current management plan to discharge to SNF Past Medical History: COPD. Allergies: NO KNOWN DRUG ALLERGIES. Past Surgical History: None obtainable. Family History: Positive for stroke. Social History: Active smoker, occasional alcohol, denies drug abuse. general: Awake and alert , NAD Neck; Supple, No elevated JVD hear: RRR, normal S1,2 no murmur or rub Chest: CTAB, no rlaes or wheezes Abdomen: Soft , Nt Extremities No edema or ulcer Assessment And Plan: AMMY due to dehydration and rhabdo resolved cont IVF Rhabdomyolysis cont IVF transaminitis resolved UTI cont ABx PNA cont ABx O2 as needed total time spent 35 minutes Physical Examination - Vital Signs Temperature: 97.4 F Blood Pressure: 137/75 Pulse: 100 Respirations: 18 Pulse Ox (%): 92 - Studies Medications List Reviewed: Yes Assessment And Plan Physician Review: Patient Assessed, Agree with Above Assessment and Plan
[2020-03-01] MEDS: TRAMADOL HCL 50 MG TAB PO PRN (13:16)
[2020-03-02] MEDS: TRAMADOL HCL 50 MG TAB PO PRN ×3 (00:01→21:27)
[2020-03-02] MEDS: IPRATROPIUM BROM 0.5MG/2.5ML NEB SCH ×3 (02:10→08:34)
[2020-03-02] MEDS: ALBUTEROL 2.5 MG/3 ML NEB SOL NEB SCH ×4 (02:10→19:50)
--- NOTE | 2020-03-02 07:11 | P.PN ---
Subjective Date of Service: 03/02/20 Chief Complaint: COPD Subjective: No new changes Patient seen and examined chart reviewed and case discussed with RN and piano regulator inspector. Patient doing well this morning.. No acute events overnight. Awaiting psych eval for determining capacity Review of Systems 10-point ROS is otherwise unremarkable Physical Examination - Vital Signs Temperature: 97.3 F Blood Pressure: 109/64 Pulse: 98 Respirations: 14 Pulse Ox (%): 91 - Physical Exam General: Alert, In no apparent distress, Oriented x2 HEENT: Atraumatic, PERRLA, EOMI Neck: Supple, JVD not distended Respiratory: Clear to auscultation bilaterally, Normal air movement Cardiovascular: No edema, Regular rate/rhythm, Normal S1 S2 Gastrointestinal: Normal bowel sounds, Soft and benign, Non-distended, No tenderness Musculoskeletal: No tenderness Integumentary: No rashes Neurological: Normal speech, Normal strength at 5/5 x4 extr, Normal tone, Normal affect - Studies Laboratory Last Values WBC 9.6 K/uL (4.3-10.9) D 02/29/20 05:54 RBC 3.80 M/uL (4.33-5.43) L 02/29/20 05:54 Hgb 12.0 g/dL (13.6-17.9) L 02/29/20 05:54 Hct 35.4 % (39.6-49.0) L 02/29/20 05:54 MCV 93.2 fL (80-100) 02/29/20 05:54 MCH 31.5 pg (27.0-35.0) 02/29/20 05:54 MCHC 33.8 g/dL (32.0-36.0) 02/29/20 05:54 RDW 15.7 % (12.1-15.2) H 02/29/20 05:54 Plt Count 209 K/uL (152-406) 02/29/20 05:54 MPV 8.8 fL (7.6-11.3) 02/29/20 05:54 Neutrophils % 86.9 % (41.7-73.7) H 02/29/20 05:54 Lymphocytes % 10.2 % (15.3-44.8) L 02/29/20 05:54 Monocytes % 2.4 % (3.3-12.3) L 02/29/20 05:54 Eosinophils % 0.3 % (0-4.4) 02/29/20 05:54 Basophils % 0.2 % (0-1.3) 02/29/20 05:54 Absolute Neutrophils 8.3 K/uL (1.8-8.0) H 02/29/20 05:54 Segmented Neutrophils 89 % (40-80) H 02/28/20 05:26 Band Neutrophils 1 % (0-1) 02/28/20 05:26 Absolute Lymphocytes 1.0 K/uL (0.7-4.9) 02/29/20 05:54 Lymphocytes 4 % (15-42) L 02/28/20 05:26 Monocytes 2 % (0-10) 02/28/20 05:26 Absolute Monocytes 0.2 K/uL (0.1-1.3) 02/29/20 05:54 Eosinophils 2 % (0-3) 02/19/20 20:25 Absolute Eosinophils 0.0 K/uL (0-0.5) 02/29/20 05:54 Absolute Basophils 0.0 K/uL (0-0.5) 02/29/20 05:54 Metamyelocytes 2 % (0-0) H 02/28/20 05:26 Nucleated RBCs 1 /100WBC 02/28/20 05:26 Toxic Granulation Present 02/28/20 05:26 Clumped Platelets Nitrocellulose Operator 02/22/20 05:15 Morphology Comment Not seen (NOT SEEN) 02/28/20 05:26 PT 12.3 SECONDS (9.5-12.5) 02/20/20 05:45 INR 1.04 02/20/20 05:45 APTT 26.0 SECONDS (24.3-36.9) 02/20/20 05:45 D-Dimer Cancelled 02/20/20 Unknown pH 7.47 (7.35-7.45) H 02/27/20 16:01 pCO2 29.0 mmHG (35-45) L 02/27/20 16:01 pO2 50.3 mmHG (75-100) L 02/27/20 16:01 HCO3 20.6 mmol/L (22-28) L 02/27/20 16:01 Base Excess -2.5 mmol/L 02/27/20 16:01 Oxyhemoglobin 85.3 % (94-97) L 02/27/20 16:01 ABG O2 Sat (Measured) 87.0 % (92-98.5) L 02/27/20 16:01 ABG Carboxyhemoglobin 0.9 % (0-1.5) 02/27/20 16:01 ABG Methemoglobin 1.1 % (0-1.5) 02/27/20 16:01 Other Total Hgb 13.0 g/dl (12-18) 02/27/20 16:01 Inspired O2 40.0 % 02/27/20 16:01 Sodium 139 mmol/L (136-145) 02/29/20 05:54 Potassium 3.6 mmol/L (3.5-5.1) 02/29/20 05:54 Chloride 107 mmol/L (98-107) 02/29/20 05:54 Carbon Dioxide 23 mmol/L (21-32) 02/29/20 05:54 BUN 18 mg/dL (7-18) 02/29/20 05:54 Creatinine 0.99 mg/dL (0.55-1.3) 02/29/20 05:54 Estimated GFR 73 mL/min (=/>90) L 02/29/20 05:54 Glucose 67 mg/dL (74-106) L 02/29/20 05:54 POC Glucose 95 mg/dl (65-120) 02/20/20 04:16 Calcium 7.9 mg/dL (8.5-10.1) L 02/29/20 05:54 Phosphorus 2.8 mg/dL (2.5-4.9) D 02/25/20 04:23 Magnesium 1.8 mg/dL (1.8-2.4) 02/25/20 04:23 Total Bilirubin 0.6 mg/dL (0.2-1.0) 02/29/20 05:54 Direct Bilirubin 0.3 mg/dL (0-0.2) H 02/19/20 20:25 AST 27 U/L (15-37) 02/29/20 05:54 ALT 54 U/L (12-78) 02/29/20 05:54 Alkaline Phosphatase 106 U/L (45-117) 02/29/20 05:54 Creatine Kinase 182 U/L (39-308) 02/26/20 04:02 CK-MB (CK-2) 4.0 ng/mL (0.3-3.6) H 02/22/20 05:15 Rapid Troponin I 0.25 ng/mL (0.0-0.045) H 02/19/20 20:25 Troponin I 0.23 ng/mL (0.0-0.045) H 02/20/20 09:08 NT-Pro-B Natriuret Pep 1184 pg/mL (<450) H 02/24/20 11:02 Serum Total Protein 4.9 g/dL (6.4-8.2) L 02/29/20 05:54 Albumin 1.7 g/dL (3.4-5.0) L 02/29/20 05:54 Globulin 3.2 g/dL (2.3-3.5) 02/29/20 05:54 Albumin/Globulin Ratio 0.5 (1.1-1.8) L 02/29/20 05:54 Lipase 89 U/L (73-393) 02/19/20 20:25 Procalcitonin 1.48 ng/mL (<0.50) H 02/24/20 11:02 TSH 0.916 uIU/mL (0.360-3.740) 02/21/20 05:42 PTH Intact 116.8 pg/mL (18.4-80.1) H 02/21/20 05:42 Urine Color Yellow 02/20/20 10:06 Urine Appearance Cloudy 02/20/20 10:06 Urine pH 5.0 (5.0-7.0) 02/20/20 10:06 Ur Specific [place] 1.010 (1.005-1.030) 02/20/20 10:06 Glucose (UA)(Auto) Negative (NEG) 02/20/20 10:06 Urine Ketones Negative (NEG) 02/20/20 10:06 Urine Blood 3+ (NEG) H 02/20/20 10:06 Urine Nitrite Negative (NEG) 02/20/20 10:06 Urine Bilirubin Negative (NEG) 02/20/20 10:06 Urine Urobilinogen 0.2 mg/dL (0.2-1.0) 02/20/20 10:06 Ur Leukocyte Esterase 2+ (NEG) H 02/20/20 10:06 Urine RBC 10-20 /HPF (NONE SEEN) H 02/20/20 10:06 Urine WBC 5-10 /HPF (<5) H 02/20/20 10:06 Ur Squamous Epith Cells <5 /HPF (NONE SEEN) 02/20/20 10:06 Urine Bacteria <20 /HPF (NONE SEEN) 02/20/20 10:06 Urine Mucus Slight /HPF (NONE SEEN) 02/20/20 10:06 Urine Culture Reflexed Not needed 02/20/20 10:06 U Random Total Protein 22 mg/dL (<11.9) H 02/20/20 10:06 Urine Creatinine 48.0 mg/dL (20-370) 02/20/20 10:06 Protein/Creatinin Ratio 0.46 ratio (<0.15) H 02/20/20 10:06 Urine Total Protein Negative (NEG) 02/20/20 10:06 Vancomycin Trough 8.2 ug/mL (5.0-20.0) 02/26/20 11:55 Hep Bs Antigen Nonreactive (Nonreactive) 02/21/20 05:42 Hep Bs Antibody Nonreactive (Nonreactive) 02/21/20 05:42 Hep Bs Antibody, Quant <5 mIU/mL (>=10) L 02/21/20 05:42 Hep B Core Total Ab Nonreactive (Nonreactive) 02/21/20 05:42 Medications List Reviewed: Yes Assessment And Plan Physician Review: Patient Assessed, Agree with Above Assessment and Plan Physician Review Additional Text: Mr. Ruby is a 79-year-old male with # Community-acquired pneumonia- patient still requiring 4 L of oxygen. -continue Ceftin -speech pathology recommends nectar thickened liquids. Possible silent aspiration -blood cultures no growth -sputum culture- Ecoli & citrobacter koseri -keep O2 89-91% # COPD exacerbation-weaned off of steroids no further wheezing, continue breathing treatments and supplemental oxygen. -director medicaid consulted #Acute kidney injury secondary to rhabdomyolysis-obstructive uropathy has been ruled out. -continue IV hydration, -avoid nephrotoxins. -trend creatinine. Now normalized. CMP in a.m. -appreciate nephrology input # acute cystitis with hematuria urine culture with citrobacter koseri. Treatment completed with antibiotics # transaminitis-secondary to rhabdomyolysis; ruled out viral hepatitis -resolved #Recurrent falls-PT/OT. Fall precautions. #Delirium- secondary to acute infection. Resolved. DVT prophylaxis-SCD Patient is full code. Dispo- SNF. CM consulted. Patient much more alert and awake however does not wish to go to rehab. Wants to go back home. Will discuss further with case management. Patient is a fall risk. Lives alone. No family has been a able to be contacted daughter in [place] has not replied back. Patient does not seem to have the capacity to make this decision has he does not understands the risks of falling at home. He simply states that he will just call somebody for help patient is not safe to go home. Spoke with psychiatrist Dr. Santos who will see the patient today to determine capacity.
[2020-03-02] MEDS: QUETIAPINE 25 MG TAB PO SCH ×2 (08:04→21:26)
[2020-03-02] MEDS: CEFUROXIME 250 MG TAB PO SCH ×2 (08:04→21:25)
[2020-03-02] MEDS: FLUTICASONE 50MCG NASAL SPRAY NAS SCH ×2 (08:06→21:25)
[2020-03-02] MEDS: ARFORMOTEROL TARTRATE 15 MCG/2 ML VIAL.NEB NEB SCH ×2 (08:34→19:50)
--- NOTE | 2020-03-02 22:29 | PN ---
Date of Progress Note: 03/02/2020 Chief Complaint: Acute kidney injury, in recovery phase. Renal function has improved. Patient has history of COPD. He was found on the floor and developed rhabdomyolysis secondary to mechanical musc le injury. Review of Systems: Denies complaints. Physical Examination: Lungs: Diminished breath sounds at bases. Heart: S1, S2. Abdomen: Soft, benign. Extremities: Slight edema. Impression And Plan: 1.Acute kidney injury. Continue IV fluids. Adjust electrolyte replacement as needed. 2.Urinary tract infection. Continue antibiotics. 3.Pneumonia, on antibiotics and O2 as needed. Management per primary team. 4.Hypertension. Blood pressure control. Adjust medication to prevent hypotensive episodes. Monito r fluid balance. Blood pressure today is in good control. Systolic blood pressure is 115/64. 5.Anemia, hemoglobin level is stable. Patient does not require KASSI. BRYAN/MODXiomara Voice ID: [id number] Report ID: [id number]
[2020-03-03] MEDS: ALBUTEROL 2.5 MG/3 ML NEB SOL NEB SCH ×4 (01:30→20:14)
[2020-03-03 07:59] LABS: Albumin 1.5 g/dL (3.4-5.0); Bilirubin Total 0.5 mg/dL (0.2-1.0); Potassium 3.4 mmol/L (3.5-5.1); Protein, Total 5.2 g/dL (6.4-8.2)
[2020-03-03] MEDS: ARFORMOTEROL TARTRATE 15 MCG/2 ML VIAL.NEB NEB SCH ×2 (08:00→20:14)
[2020-03-03] MEDS: QUETIAPINE 25 MG TAB PO SCH ×2 (08:13→21:00)
[2020-03-03] MEDS: CEFUROXIME 250 MG TAB PO SCH (08:13)
[2020-03-03 08:34] LABS: Basophils % 0.3 % (0-1.3); MPV 8.9 fL (7.6-11.3); RBC Red Blood Cell Count 3.62 M/uL (4.33-5.43)
[2020-03-03] MEDS ORDERED: FUROSEMIDE 40 MG/4 ML VIAL IV ONE (09:49)
[2020-03-03] MEDS: FAMOTIDINE 20 MG TAB PO SCH ×2 (10:13→21:00)
[2020-03-03] MEDS: SIMETHICONE 80 MG TAB PO SCH ×4 (10:13→21:00)
[2020-03-03] MEDS: FLUTICASONE 50MCG NASAL SPRAY NAS SCH ×2 (10:18→21:00)
[2020-03-03] MEDS ORDERED: POTASSIUM 25 MEQ EFFERV TAB PO ONE (10:46)
--- NOTE | 2020-03-03 11:15 | PN ---
Date of Progress Note: 03/03/2020 Subjective: Patient was admitted with UTI, acute kidney injury. Physical Examination: Vital Signs: Blood pressure 140/76, pulse of 100, afebrile. Patient had good urine output of 350. Chest: Clear to auscultation. Heart: S1, S2. Regular. Abdomen: Soft, nontender. Extremities: No edema. Neuro: Alert. No focal. Confused. Laboratory Data: WBC 6, H and H 11.5/35, platelets 257. Sodium 139, potassium 3.4, bicarb 25, BUN 2 0, creatinine 0.9, calcium 8.2. Culture growing citrobacter and E coli. Current Medications: 1.Ceftin. 2.Breathing treatment. 3.Tylenol. 4.Pepcid. 5.Zofran. 6.Tramadol. Assessment And Plan: 1.Acute kidney injury secondary to prerenal/toxic acute tubular necrosis, stable, recovered, resolve d. Normal volume. Patient received single dose of Lasix. We will follow up. 2.Hypertension, controlled, optimal. Continue current medication. 3.Urinary tract infection, multi organism, Escherichia coli and citrobacter. Continue on Ceftin. 4.Rhabdomyolysis, recovered, resolved. 5.Hypokalemia. We will supplement. SIENA/CHUYITA Voice ID: [id number] Report ID: [id number]
--- NOTE | 2020-03-03 11:15 | P.PN ---
Subjective Date of Service: 03/03/20 Chief Complaint: COPD Subjective: New changes (-still mild agitations) Physical Examination - Vital Signs Temperature: 98.1 F Blood Pressure: 140/76 Pulse: 109 Respirations: 18 Pulse Ox (%): 96 - Physical Exam General: Alert, In no apparent distress HEENT: Atraumatic, Normocephalic, PERRLA Neck: 2+ carotid pulse no bruit, JVD not distended Respiratory: Diminished, Expiratory wheezes Cardiovascular: No edema, Regular rate/rhythm, Normal S1 S2 Gastrointestinal: Normal bowel sounds, Soft and benign, Non-distended Musculoskeletal: No clubbing, No swelling Neurological: Normal speech, Normal strength at 5/5 x4 extr - Studies # Community-acquired pneumonia- worsening dyspnea this am -Now up to 5L with sat still at 85%-increase to 5L -Will add lasix -speech pathology recommends nectar thickened liquids. Possible silent aspiration -blood cultures no growth -sputum culture- Ecoli & citrobacter koseri # COPD exacerbation-c/w to wean off steroids continue breathing treatments and supplemental oxygen. -cable maker consulted #Acute kidney injury secondary to rhabdomyolysis-improved -obstructive uropathy has been ruled out. -will dc IVF now -appreciate nephrology input # acute cystitis with hematuria urine culture with citrobacter koseri. s/p completed abx # Transaminitis-secondary to rhabdomyolysis; resolved #Recurrent falls-PT/OT. Fall precautions. # Dysphagia - on thicken liquids # Encephalopathy - slowly improving , may be due to acute infection - seen by Psych and deem non-competent for decision making -will follow with case mgt to secure court guardianship since unable to locate family - will need LTC when approval obtained Medications List Reviewed: Yes Assessment And Plan Physician Review: Patient Assessed, Agree with Above Assessment and Plan Physician Review Additional Text: Mr. Ruby is a 79-year-old male with # Community-acquired pneumonia- patient still requiring 4 L of oxygen. -continue Ceftin -speech pathology recommends nectar thickened liquids. Possible silent aspiration -blood cultures no growth -sputum culture- Ecoli & citrobacter koseri -keep O2 89-91% # COPD exacerbation-weaned off of steroids no further wheezing, continue breathing treatments and supplemental oxygen. -cable maker consulted #Acute kidney injury secondary to rhabdomyolysis-obstructive uropathy has been ruled out. -continue IV hydration, -avoid nephrotoxins. -trend creatinine. Now normalized. CMP in a.m. -appreciate nephrology input # acute cystitis with hematuria urine culture with citrobacter koseri. Treatment completed with antibiotics # transaminitis-secondary to rhabdomyolysis; ruled out viral hepatitis -resolved #Recurrent falls-PT/OT. Fall precautions. #Delirium- secondary to acute infection. Resolved. DVT prophylaxis-SCD Patient is full code. Dispo- SNF. CM consulted. Patient much more alert and awake however does not wish to go to rehab. Wants to go back home. Will discuss further with case management. Patient is a fall risk. Lives alone. No family has been a able to be contacted daughter in [place] has not replied back. Patient does not seem to have the capacity to make this decision has he does not understands the risks of falling at home. He simply states that he will just call somebody for help patient is not safe to go home. Spoke with psychiatrist Dr. Santos who will see the patient today to determine capacity.
--- NOTE | 2020-03-03 13:57 | RAD REPORT ---
EXAM DESCRIPTION: [place] Single View03/03/2020 1:49 pm CLINICAL HISTORY: Chest pain COMPARISON: February 27, 2020 FINDINGS: Worsening in right upper lobe reticulonodular opacities. Additional mild bilateral pulmonary opacities . Heart is normal size IMPRESSION: Moderate right upper lobe opacities may indicate aspiration pneumonia
--- NOTE | 2020-03-03 15:42 | CON ---
Date of Consultation: 03/02/2020 Chief Complaint: Psychiatry is consulted to evaluate the patient for capacity to make decision regarding his discharge disposition. History Of Present Illness: Mr. Lo is a 79-year-old male admitted via the ER on February 19, 2020, after he was found on the floor in his house where he had been for about 3 to 4 days. The patient was brought to the ER by the EMS services with a history of closed head injury from a fall. He was also found to be severely dehydrated and had acute renal failure with COPD exacerbation and UTI. The patient was found to be confused. After initial stabilized and admitted to the floor where he has been receiving treatment. Present Medical Condition: On evaluation, the patient stated he does not have any psychiatric history he was however a poor historian and seems slightly agitated. He was unable to fully participate in his history taking and he kept stating that he does not have any psychiatric need and denies being depressed. No suicidal or homicidal ideation reported and states that he has no family members living around him. He was not sure where he will be going to following this discharge, because prior to his hospitalization he lived alone and has being struggling with care for himself. Per caregiver there is history that indicates that the patient has struggled with activities of daily living as well as most of his IADLs. Also the patient's medical conditions has deteriorated further limiting his ability to care for self . No history of psychosis, no history of bipolar disorder. No history of chronic insomnia. The patient does not have history of dementia; however, he seems to struggle with his memory as he cannot remember the name of 5 past [place] presidents. He also struggles with the names of his 3 kids. He stated that he had been before and got . He was unable to provide history regarding his work and psychosocial support history. The patient was again not able to provide a reasonable rational alternative to his discharge plan to highly skilled facility. He currently has no support and lives by himself. The patient admits past history of alcohol consumption but denies illicit substance abuse. Objective: Vital Signs: Blood pressure 116/66, respiratory rate is 14, O2 saturation is 88%, pulse rate is 109, temperature is 97.6. Mental Status Examination: Patient is acutely ill-looking, poorly kept, dressed in hospital gown, receiving oxygen via nasal cannula. Patient is superficially cooperative with interview. Patient exhibits signs respiratory failure. Speech is slightly dysarthric, at times loud, but normal in rate. Concentration and memory are poor. Mood described as "tired" Affect is irritable . Thought process mostly circumstantial and at times linear. Thought content, no delusional thinking. No suicidal or homicidal ideation. Assessment: 79-year-old male with recent head injury from a fall, found to also have urinary tract infection and acute renal failure and chronic obstructive pulmonary disease exacerbation with altered mental status. As a result of patient poor cognitive functioning he was unable to provide a rational alternative to current discharge plan, hence it is my opinion that patient lacks capacity to make the decision regarding discharge care. Discussed recommendations with treatment team. Diagnoses: 1. Delirium 2nd to urinary tract infection 2. Chronic obstructive pulmonary disease exacerbation. VERNELL/MODL Voice ID: [id number] Report ID: [id number] PAUL
[2020-03-03] MEDS ORDERED: FUROSEMIDE 20 MG TABLET PO SCH (17:00)
[2020-03-03] MEDS: D5 0.45 NS 1,000 ML IV SCH (17:14)
[2020-03-03] MEDS: METRONIDAZOLE 250mg IVPB 250 MG/50 ML BAG IV SCH (17:15)
[2020-03-03] MEDS: PIPER/TAZO/NS 3.375gm 3.375 GM/100 ML BAG IVPB SCH (17:15)
[2020-03-03] MEDS: ENSURE ENLIVE 237 ML CAN PO SCH (21:00)
[2020-03-04] MEDS: METRONIDAZOLE 250mg IVPB 250 MG/50 ML BAG IV SCH ×2 (01:03→09:57)
[2020-03-04] MEDS: PIPER/TAZO/NS 3.375gm 3.375 GM/100 ML BAG IVPB SCH ×3 (01:03→16:25)
[2020-03-04] MEDS: ALBUTEROL 2.5 MG/3 ML NEB SOL NEB SCH ×4 (01:50→20:30)
[2020-03-04] MEDS: SIMETHICONE 80 MG TAB PO SCH ×4 (07:49→21:00)
[2020-03-04] MEDS: QUETIAPINE 25 MG TAB PO SCH ×2 (07:49→22:05)
[2020-03-04] MEDS: ENSURE ENLIVE 237 ML CAN PO SCH ×2 (07:49→22:07)
[2020-03-04] MEDS: ARFORMOTEROL TARTRATE 15 MCG/2 ML VIAL.NEB NEB SCH ×2 (08:05→20:30)
[2020-03-04] MEDS: FAMOTIDINE 20 MG/2 ML VIAL IV SCH (09:57)
[2020-03-04] MEDS: FLUTICASONE 50MCG NASAL SPRAY NAS SCH ×2 (09:59→22:06)
--- NOTE | 2020-03-04 11:05 | P.PN ---
Subjective Date of Service: 03/04/20 Chief Complaint: COPD Subjective: No new changes Patient remained confused. No agitation overnight. No fever. He is requiring 4-5 L of oxygen. Physical Examination - Vital Signs Temperature: 98.3 F Blood Pressure: 109/61 Pulse: 110 Respirations: 20 Pulse Ox (%): 94 - Physical Exam General: In no apparent distress, Confused HEENT: Mucous membr. moist/pink Neck: Supple Respiratory: Crackles/rales (Right lung.) Cardiovascular: No edema, Regular rate/rhythm, Normal S1 S2 Gastrointestinal: Normal bowel sounds, Soft and benign, Non-distended Integumentary: Other (Small abrasion left knee.) Neurological: Other (Nonfocal) - Studies Medications List Reviewed: Yes Assessment And Plan Physician Review Additional Text: # Community-acquired pneumonia- patient still requiring 4 L of oxygen. -patient on Zosyn. Ceftin discontinued -suspected aspiration pneumonia. -barium swallow today -dysphagia diet pending barium swallow study results. -sputum culture- Ecoli & citrobacter koseri -keep O2 89-91% # COPD exacerbation -stable. No wheezing -continue breathing treatments and supplemental oxygen. -bundle clerk is following. #Acute kidney injury secondary to rhabdomyolysis-obstructive uropathy has been ruled out. -continue IV hydration, -AKA has resolved -follow renal function panel -patient seen by nephrology # acute cystitis with hematuria - urine culture with citrobacter koseri. Patient completed antibiotic treatment for UTI. # transaminitis -secondary to rhabdomyolysis. -resolved #Recurrent falls -PT/OT. -Fall precautions. -disposition to skilled rehab. #Delirium -patient remained confused and at this time considered incapable of making informed medical decisions. -confusion likely secondary to infection. -psychiatric input appreciated. -disposition to skilled rehab. -continue to treat infection. DVT prophylaxis-SCD Patient is full code.
--- NOTE | 2020-03-04 12:17 | RAD REPORT ---
EXAM DESCRIPTION: RAD - Barium Swallow Modified - 03/04/2020 12:04 pm CLINICAL HISTORY: Pneumonia, cough, choking FINDINGS: Fluoroscopy time a 3.4 minutes. Twelve fluoroscopic spot series obtained laryngeal penetration: not cleared - deep penetration to level of the vocal cords with liquid via tsp - possible trace aspiration pharyngeal residue: mild - mod vallecular, mild pyriform There is reduced oral bolus manipulation. Oral transit time is increased to approximately 2 seconds w ith honey thick and 7 seconds with pureed. Swallow onset is timely. There is posterior laryngeal elevation and reduced contraction of the posterior pharyngeal wall. Ther e is also reduced opening of the upper esophageal sphincter and prominent cricopharyngus muscle is no koko. There was deep penetration to the vocal cords with teaspoon of nectar and possible trace aspiration. There was no penetration or aspiration with honey or pureed. Mild - moderate residue in the vallecula e is reduced with reswallow. There is moderate esophageal stasis. Study was concluded due to patient's refusal to continue
[2020-03-04] MEDS: D5 0.45 NS 1,000 ML IV SCH (13:00)
--- NOTE | 2020-03-04 13:13 | PN ---
Date of Progress Note: 03/04/2020 Subjective: Patient was admitted with acute kidney injury, UTI, altered mental status. Acute kidney injury has been resolved. Patient has been developing hypokalemia, been on supplement. Patient has poor intake. Patient is scheduled for a swallow study today. Physical Examination: Vital Signs: When I saw the patient, blood pressure of 109/61, pulse of 110, afebrile. The patient had good urine output. Chest: Clear to auscultation. Heart: S1, S2. Regular. Abdomen: Soft, nontender. Extremities: No edema. Neurologic: No focal. Confused. Laboratory Data: WBC 6, H and H 11.5/34, platelets 257. Sodium of 139, potassium of 3.4, bicarb 25, BUN 20, creatinine 0.9, calcium 8.2. Current Medications: The patient on include, 1.Zosyn.. 2.Tylenol. 3.Ensure. 4.Pepcid. 5.Simethicone. 6.D5 half. Assessment And Plan: 1.Acute kidney injury secondary to prerenal/toxic acute tubular necrosis, recovered, resolved. 2.Hypokalemia, status post supplement. We will follow up repeated lab. 3.Urinary tract infection, secondary to Escherichia coli and citrobacter. Continue current antibiot ic. We will follow up with primary. 4.Poor intake, difficulty swallow. We will follow up a swallow study. JARED Voice ID: [id number] Report ID: [id number]
[2020-03-05] MEDS: PIPER/TAZO/NS 3.375gm 3.375 GM/100 ML BAG IVPB SCH ×3 (01:12→17:12)
[2020-03-05] MEDS: ALBUTEROL 2.5 MG/3 ML NEB SOL NEB SCH ×4 (02:20→19:50)
[2020-03-05 04:55] LABS: Albumin 1.5 g/dL (3.4-5.0); Phosphorus 2.3 mg/dL (2.5-4.9)
[2020-03-05 04:57] LABS: Potassium 2.9 mmol/L (3.5-5.1)
[2020-03-05] MEDS ORDERED: KCL 20 MEQ/100 mL IVPB 20 MEQ/100 ML BAG IV SCH (06:00)
[2020-03-05] MEDS: D5 0.45 NS 1,000 ML IV SCH ×2 (06:29→09:00)
[2020-03-05] MEDS: ARFORMOTEROL TARTRATE 15 MCG/2 ML VIAL.NEB NEB SCH ×2 (07:50→19:50)
[2020-03-05] MEDS: QUETIAPINE 25 MG TAB PO SCH ×2 (08:54→22:09)
[2020-03-05] MEDS: POTASSIUM 25 MEQ EFFERV TAB PO SCH ×2 (08:54→22:09)
[2020-03-05] MEDS: FAMOTIDINE 20 MG/2 ML VIAL IV SCH (08:54)
[2020-03-05] MEDS: SIMETHICONE 80 MG TAB PO SCH ×5 (08:54→22:09)
[2020-03-05] MEDS: FLUTICASONE 50MCG NASAL SPRAY NAS SCH ×2 (08:55→22:20)
[2020-03-05] MEDS: ENSURE ENLIVE 237 ML CAN PO SCH ×3 (09:00→21:00)
[2020-03-05] MEDS ORDERED: POTASSIUM PHOS 10 MM in NA CHLORIDE 0.9% 250 ML IV ONE (10:24)
[2020-03-05] MEDS: D5.45NS W/KCL 40MEQ 40 MEQ/1,000 ML BAG IV SCH (10:32)
[2020-03-05] MEDS: POTASSIUM CL 40 MEQ in NA CHLORIDE 0.9% 500 ML IV SCH ×2 (10:33→15:23)
--- NOTE | 2020-03-05 11:05 | PN ---
Date of Progress Note: 03/05/2020 History: Patient was admitted with altered mental status, urosepsis, developed aspiration pneumonia. Patient has failure to thrive. Still confused. Physical Examination: Vital Signs: Blood pressure 109/72, pulse of 100, afebrile. Patient had good urine output. Chest: Faint rales bilateral, more prominent right-sided. Heart: S1, S2. Systolic murmur. Abdomen: Soft, nontender. Extremities: No edema. Neuro: Alert, confused. Laboratory Data: WBC 6, H and H 11.5/34, platelets 257. Sodium 142, bicarb 25, BUN 23, creatinine 1.1, calcium of 8, phosphorus 2.3, albumin 1.5. Current Medications: The patient on include: 1. Zosyn. 2. Ensure. 3. Pepcid. 4. D5. Assessment And Plan: 1. Acute kidney injury secondary to prerenal/toxic acute tubular necrosis, recovered, resolved. 2. Urinary tract infection secondary to Escherichia coli and citrobacter, status post treatment. We will follow up. 3. Possible aspiration pneumonia. Patient was started on Zosyn. We will follow up. 4. Hypokalemia, hypophosphatemia. I will supplement. We will check for the magnesium level. 5. Failure to thrive. We will consider TPN. Currently patient on D5 half. We will follow up. JARED Voice ID: [id number] Report ID: [id number] PAUL
--- NOTE | 2020-03-05 12:15 | P.PN ---
Subjective Date of Service: 03/05/20 Chief Complaint: COPD Patient looks confused. No fever. He is requiring 5 L of oxygen. Patient was placed on pureed diet and honey thickened liquids based on MBS. Noted he also has esophageal stasis. Patient is refusing the dysphagia diet. Physical Examination - Vital Signs Temperature: 98 F Blood Pressure: 109/72 Pulse: 100 Respirations: 22 Pulse Ox (%): 93 - Physical Exam General: Confused, Other (Awake) HEENT: Mucous membr. moist/pink Neck: Supple Respiratory: Crackles/rales (Right lung) Cardiovascular: No edema, Regular rate/rhythm, Normal S1 S2 Gastrointestinal: Normal bowel sounds, Soft and benign, Non-distended, No tenderness Integumentary: No erythema Neurological: Other (Nonfocal) - Studies Medications List Reviewed: Yes Assessment And Plan Physician Review: Patient Assessed, Agree with Above Assessment and Plan Physician Review Additional Text: # Aspiration pneumonia/Dysphagia- patient requiring 5 L of oxygen. -patient on Zosyn. -barium swallow results reviewed -patient placed on honey thickened liquids, pureed diet but he has been refusing the dysphagia diet. -poor prognosis -increased likelihood of recurrence of aspiration PNA. -keep O2 89-91%\ -Dicussed PEG tube with the daughter. At the moment, he is not a good surgical candidate given the respiratory failure and advanced COPD. -his respiratory status need to improve before consideration for PEG tube insertion. -Start TPN. # COPD exacerbation -patient now requiring more oxygen. -he has advanced COPD and uses trilogy at home. -will start patient on high-dose steroid. -continue Brovana. Add ipratropium. -budesonide -continue antibiotics -personal lines appraiser is following. #Acute kidney injury secondary to rhabdomyolysis -obstructive uropathy has been ruled out. -continue IV hydration, -AKA has resolved -follow renal function panel -patient seen by nephrology # acute cystitis with hematuria - urine culture with citrobacter koseri. Patient completed antibiotic treatment for UTI. # transaminitis -secondary to rhabdomyolysis. -resolved #Recurrent falls -PT/OT. -Fall precautions. -patient encouraged to participate in physical therapy. -disposition to skilled rehab. #Delirium -patient remained confused and at this time considered incapable of making informed medical decisions. -confusion likely secondary to infection. -psychiatric input appreciated. -disposition to skilled rehab. -continue to treat infection. Hypokalemia: -correct Potassium level IV -monitor renal panel. Goals of care: -I spoke to the daughter wishes us to continue aggressive measures for now. Patient is full code.
[2020-03-05] MEDS: IPRATROPIUM BROM 0.5MG/2.5ML NEB SCH ×2 (14:00→19:50)
[2020-03-05] MEDS: METHYLPREDNISOLONE 40 MG INJ IV SCH (17:16)
--- NOTE | 2020-03-05 17:27 | RAD REPORT ---
EXAM DESCRIPTION: RAD - Chest Single View - 03/05/2020 5:02 pm CLINICAL HISTORY: picc line placement COMPARISON: Chest Single View dated 03/03/2020; Chest Single View dated 02/27/2020; Chest Single View da koko 02/26/2020; Chest Single View dated 02/24/2020 FINDINGS: Portable chest was obtained following placement of a right upper extremity PICC line. The catheter tip projects over the SVC..
[2020-03-05] MEDS: AA 5%/D20W/ELECTROLYTES-TPN 2,000 ML, Lipids 20% 250 ML with MULTIVITAMINS INJ 10 ML IV SCH ×3 (18:16)
[2020-03-05] MEDS: BUDESONIDE 0.5 MG/2 ML NEB NEB SCH (19:50)
[2020-03-06] MEDS: ALBUTEROL 2.5 MG/3 ML NEB SOL NEB SCH ×4 (01:15→19:50)
[2020-03-06] MEDS: IPRATROPIUM BROM 0.5MG/2.5ML NEB SCH ×4 (01:15→19:50)
[2020-03-06] MEDS: METHYLPREDNISOLONE 40 MG INJ IV SCH ×4 (01:18→18:08)
[2020-03-06] MEDS: PIPER/TAZO/NS 3.375gm 3.375 GM/100 ML BAG IVPB SCH ×3 (01:19→17:00)
[2020-03-06] MEDS ORDERED: D50W 25 GM/50 ML SYRINGE/VIAL IV PRN (01:50)
[2020-03-06] MEDS ORDERED: GLUCAGON 1 MG/VIAL IM PRN (01:50)
[2020-03-06] MEDS ORDERED: INSULIN GLARGINE 100 UNITS/ML SQ ONE (01:51)
[2020-03-06] MEDS: ACETAMINOPHEN 500 MG TAB PO PRN ×2 (05:40→21:07)
[2020-03-06] MEDS: D5.45NS W/KCL 40MEQ 40 MEQ/1,000 ML BAG IV SCH (06:00)
[2020-03-06 06:21] LABS: Albumin 1.5 g/dL (3.4-5.0); Magnesium 2.2 mg/dL (1.8-2.4); Phosphorus 1.5 mg/dL (2.5-4.9); Potassium 4.2 mmol/L (3.5-5.1)
[2020-03-06] MEDS: ARFORMOTEROL TARTRATE 15 MCG/2 ML VIAL.NEB NEB SCH ×2 (07:47→19:50)
[2020-03-06] MEDS: BUDESONIDE 0.5 MG/2 ML NEB NEB SCH ×2 (07:47→19:50)
[2020-03-06] MEDS: ENSURE ENLIVE 237 ML CAN PO SCH ×3 (09:00→21:00)
--- NOTE | 2020-03-06 10:00 | P.PN ---
Subjective Date of Service: 03/06/20 Chief Complaint: COPD Patient remain confused No fever. Oxygen requirement has decreased Poor oral intake Patient started on TPN yesterday. Physical Examination - Vital Signs Temperature: 97.8 F Blood Pressure: 140/70 Pulse: 94 Respirations: 20 Pulse Ox (%): 93 - Physical Exam General: Confused, Other (Awake) HEENT: Mucous membr. moist/pink Respiratory: Crackles/rales (Bilateral) Cardiovascular: No edema, Regular rate/rhythm, Normal S1 S2 Gastrointestinal: Normal bowel sounds, Soft and benign, Non-distended, No tenderness Musculoskeletal: Other (Suspect atrophy of lower legs.) Integumentary: Other (Multiple old abrasions on bilateral knees.) Neurological: Other (Nonfocal) - Studies Medications List Reviewed: Yes Assessment And Plan Physician Review: Patient Assessed, Agree with Above Assessment and Plan Physician Review Additional Text: # Aspiration pneumonia/Dysphagia- patient requiring 5 L of oxygen. -patient on Zosyn. -barium swallow results reviewed -patient placed on honey thickened liquids, pureed diet but he has been refusing the dysphagia diet. -poor prognosis -increased likelihood of recurrence of aspiration PNA. -keep O2 89-91%\ -Dicussed PEG tube with the daughter. At the moment, he is not a good surgical candidate given the respiratory failure and advanced COPD. -his respiratory status need to improve before consideration for PEG tube i nsertion. -Start TPN. # COPD exacerbation -improving -oxygen requirement has decreased -continue IV steroid. -continue Brovana and ipratropium. -budesonide -continue antibiotics #Acute kidney injury secondary to rhabdomyolysis -obstructive uropathy has been ruled out. -on TPN due to poor oral intake and dysphagia. -AKA has resolved -follow renal function panel -patient seen by nephrology # acute cystitis with hematuria - urine culture with citrobacter koseri. Patient completed antibiotic treatment for UTI. # transaminitis -secondary to rhabdomyolysis. -resolved #Recurrent falls -PT/OT. -Fall precautions. -patient encouraged to participate in physical therapy. -disposition to skilled rehab. #Delirium -patient remain confused and at this time considered incapable of making informed medical decisions. -psychiatric input appreciated. -disposition to skilled rehab. -continue to treat infection. Hypokalemia: -correct potassium as needed. -monitor renal panel. Goals of care: -continue aggressive measures for now per daughter. Patient is full code.
[2020-03-06] MEDS: FLUTICASONE 50MCG NASAL SPRAY NAS SCH ×2 (10:11→21:40)
[2020-03-06] MEDS: SIMETHICONE 80 MG TAB PO SCH ×4 (10:11→21:00)
[2020-03-06] MEDS: QUETIAPINE 25 MG TAB PO SCH ×2 (10:11→21:08)
[2020-03-06] MEDS: POTASSIUM 25 MEQ EFFERV TAB PO SCH ×2 (10:11→21:00)
[2020-03-06] MEDS: FAMOTIDINE 20 MG/2 ML VIAL IV SCH (10:12)
--- NOTE | 2020-03-06 11:23 | P.PN ---
Subjective Date of Service: 03/06/20 Chief Complaint: COPD Subjective This is a 79-year-old with PMHX of COPD, found on the floor , had ammy and rhabdo today more alert , cont to require high oxygen level RFT stable cont current management Poor prognosis Past Medical History: COPD. Allergies: NO KNOWN DRUG ALLERGIES. Past Surgical History: None obtainable. Family History: Positive for stroke. Social History: Active smoker, occasional alcohol, denies drug abuse. general: Awake and alert , NAD Neck; Supple, No elevated JVD hear: RRR, normal S1,2 no murmur or rub Chest: CTAB,, mild basal rales Abdomen: Soft , Nt Extremities No edema or ulcer Assessment And Plan: AMMY due to dehydration and rhabdo resolved cont IVF Rhabdomyolysis cont IVF transaminitis resolved UTI cont ABx PNA cont ABx O2 as needed Advanced COPD on High O2 demand total time spent 35 minutes Physical Examination - Vital Signs Temperature: 97.8 F Blood Pressure: 140/70 Pulse: 94 Respirations: 20 Pulse Ox (%): 93 - Studies Medications List Reviewed: Yes Assessment And Plan Physician Review: Patient Assessed, Agree with Above Assessment and Plan
[2020-03-06] MEDS: AA 5%/D20W/ELECTROLYTES-TPN 2,000 ML, Lipids 20% 250 ML with MULTIVITAMINS INJ 10 ML IV SCH ×3 (18:08)
[2020-03-07] MEDS: METHYLPREDNISOLONE 40 MG INJ IV SCH ×5 (00:50→23:52)
[2020-03-07] MEDS: PIPER/TAZO/NS 3.375gm 3.375 GM/100 ML BAG IVPB SCH ×4 (00:50→23:52)
[2020-03-07] MEDS: ALBUTEROL 2.5 MG/3 ML NEB SOL NEB SCH ×4 (01:55→20:10)
[2020-03-07] MEDS: IPRATROPIUM BROM 0.5MG/2.5ML NEB SCH ×4 (01:55→20:10)
[2020-03-07] MEDS: D5.45NS W/KCL 40MEQ 40 MEQ/1,000 ML BAG IV SCH (02:00)
[2020-03-07] MEDS: INSULIN GLARGINE 100 UNITS/ML SQ SCH ×2 (02:07→20:27)
[2020-03-07 08:01] LABS: Albumin 1.5 g/dL (3.4-5.0); Bilirubin Total 0.3 mg/dL (0.2-1.0); Protein, Total 4.9 g/dL (6.4-8.2)
[2020-03-07] MEDS: ARFORMOTEROL TARTRATE 15 MCG/2 ML VIAL.NEB NEB SCH ×2 (08:22→20:10)
[2020-03-07] MEDS: BUDESONIDE 0.5 MG/2 ML NEB NEB SCH ×2 (08:22→20:10)
[2020-03-07] MEDS: FLUTICASONE 50MCG NASAL SPRAY NAS SCH ×2 (09:00→20:26)
[2020-03-07] MEDS: FAMOTIDINE 20 MG/2 ML VIAL IV SCH (09:00)
[2020-03-07] MEDS: QUETIAPINE 25 MG TAB PO SCH ×2 (09:00→20:26)
[2020-03-07] MEDS: SIMETHICONE 80 MG TAB PO SCH ×4 (09:00→20:25)
[2020-03-07] MEDS: ENSURE ENLIVE 237 ML CAN PO SCH ×3 (09:00→20:22)
[2020-03-07] MEDS ORDERED: CLONIDINE 0.1 MG/PATCH TD SCH (14:00)
--- NOTE | 2020-03-07 16:30 | PN ---
Date of Progress Note: 03/07/2020 Subjective: Patient was admitted with acute kidney injury secondary to prerenal and rhabdomyolysis, treated, recovered. Patient had failure to thrive, developed aspiration pneumonia, placed on TPN. P geraldine's blood pressure been on the upper side. Physical Examination: Vital Signs: Blood pressure 166/89, pulse of 94, afebrile. Patient had good urine output of voiding . Chest: Crackles, more prominent right side. Heart: S1, S2. Regular. Abdomen: Soft. Nontender. Extremities: Trace edema. Laboratory Data: WBC 6, H and H 11.5/34, platelets 257. Sodium 145, potassium 4, bicarb 22, BUN 26, creatinine 1.1, GFR of 63, calcium 8.9, magnesium of 2. Current Medications: The patient on include: 1.Zosyn. 2.Seroquel. 3.Pepcid. 4.Zofran. 5.TPN. 6.Insulin. 7.IV fluids. Assessment And Plan: 1.Acute kidney injury secondary to prerenal, recovered, resolved. Currently on TPN. I am going to go ahead and discontinue IV fluids. 2.Hypertension, not controlled. The patient not eating that much with possible aspiration. I am go ing to go ahead and discontinue IV fluid. Start the patient on clonidine patch and we will follow up the patient. 3.Hypokalemia, resolved. 4.Rhabdomyolysis, resolved. 5.Pneumonia. Continue current antibiotic. Continue Zosyn. Culture growing E coli, Citrobacter whi ch is sensitive to Zosyn and cephalosporin. We will continue current treatment. 6.Edema, discontinue IV fluids. 7.Failure to thrive. Continue TPN. Electrolytes have been stable. MA/MODL Voice ID: [id number] Report ID: [id number]
[2020-03-07] MEDS: AA 5%/D20W/ELECTROLYTES-TPN 2,000 ML, Lipids 20% 250 ML with MULTIVITAMINS INJ 10 ML IV SCH ×3 (17:56)
[2020-03-07] MEDS ORDERED: Levofloxacin 750mg IV 750 MG/150 ML BAG IV SCH (20:00)
--- NOTE | 2020-03-07 20:15 | RAD REPORT ---
EXAM DESCRIPTION: RAD - Chest Single View - 03/07/2020 7:19 pm CLINICAL HISTORY: chest pain COMPARISON: Portable March 05, portable March 03 TECHNIQUE: AP portable chest image was obtained 03/07/2020 7:19 pm . FINDINGS: Patient has extensive baseline chronic interstitial lung disease. PICC line is unchanged f rom earlier imaging. Focal parenchymal opacification in the mid right lung field is not substantially changed. Medial left lung base opacification also without substantial change. Right base opacificati on is slightly worse. Heart and vasculature are normal. No measurable pleural effusion and no pneumothorax. No acute bony abnormality seen. No acute aortic findings suspected. IMPRESSION: Slight progression of right lung base interstitial and alveolar disease. No substantial change to the medial left base and mid right lung field infiltrates.
[2020-03-08] MEDS: ALBUTEROL 2.5 MG/3 ML NEB SOL NEB SCH ×4 (01:40→19:35)
[2020-03-08] MEDS: IPRATROPIUM BROM 0.5MG/2.5ML NEB SCH ×4 (01:40→19:35)
[2020-03-08 05:25] LABS: Albumin 1.6 g/dL (3.4-5.0); Bilirubin Total 0.5 mg/dL (0.2-1.0); Magnesium 1.7 mg/dL (1.8-2.4); Potassium 3.8 mmol/L (3.5-5.1); Protein, Total 5.1 g/dL (6.4-8.2)
[2020-03-08] MEDS: METHYLPREDNISOLONE 40 MG INJ IV SCH (06:00)
[2020-03-08] MEDS ORDERED: FUROSEMIDE 20 MG/ 2ML VIAL IV ONE (06:30)
[2020-03-08] MEDS: BUDESONIDE 0.5 MG/2 ML NEB NEB SCH (07:50)
[2020-03-08] MEDS: ARFORMOTEROL TARTRATE 15 MCG/2 ML VIAL.NEB NEB SCH ×2 (07:50→19:35)
--- NOTE | 2020-03-08 08:08 | EKG ---
Test Date: 2020-03-07 Test Time: 17:23:00 Account Engineer: RT Hernandez MEASUREMENT RESULTS: Intervals: Rate: 96 CA: 128 QRSD: 92 QT: 312 QTc: 394 [place]: P: 7 CA: 128 QRS: -41 T: 13 INTERPRETIVE STATEMENTS: Normal sinus rhythm Left axis deviation Abnormal ECG Compared to ECG 02/20/2020 09:22:11 T-wave abnormality no longer present Electronically Signed On 03-08-20 08:07:47 CDT by Reggie Hayes
[2020-03-08] MEDS: PIPER/TAZO/NS 3.375gm 3.375 GM/100 ML BAG IVPB SCH (08:31)
[2020-03-08] MEDS: SIMETHICONE 80 MG TAB PO SCH (08:32)
[2020-03-08] MEDS: QUETIAPINE 25 MG TAB PO SCH ×2 (08:32→21:02)
[2020-03-08] MEDS: FAMOTIDINE 20 MG/2 ML VIAL IV SCH (08:32)
[2020-03-08] MEDS: FLUTICASONE 50MCG NASAL SPRAY NAS SCH ×2 (08:32→21:03)
[2020-03-08] MEDS: ENSURE ENLIVE 237 ML CAN PO SCH ×3 (09:00→21:00)
--- NOTE | 2020-03-08 09:00 | P.PN ---
Subjective Date of Service: 03/08/20 Chief Complaint: Hypoxic Patient is still continues to remain agitated he shows some progressive interstitial changes currently on TPN possible aspiration been on antibiotics for a long time no fever Review of Systems General: Weakness Respiratory: Shortness of Breath Physical Examination - Vital Signs Temperature: 97.7 F Blood Pressure: 157/88 Pulse: 95 Respirations: 16 Pulse Ox (%): 96 - Physical Exam General: Alert, Mild distress Respiratory: Crackles/rales Cardiovascular: No edema Gastrointestinal: Normal bowel sounds, Soft and benign - Studies Medications List Reviewed: Yes Assessment & Plan - Problems (Diagnosis) (1) COPD (chronic obstructive pulmonary disease) Current Visit: Yes Status: Acute Plan: Patient is still very hypoxic chest x-ray shows progressive interstitial change will follow up with a CT scan Dc all antibiotics nebulized budesonide an IV steroids patient's blood pressure is elevated I have added spironolactone renal function is now normal Qualifiers: COPD type: unspecified COPD Qualified Code(s): J44.9 - Chronic obstructive pulmonary disease, unspecified Physician Review: Patient Assessed, Agree with Above Assessment and Plan
[2020-03-08] MEDS: SPIRONOLACTONE 25 MG TABLET PO SCH ×2 (09:55→21:02)
[2020-03-08] MEDS ORDERED: Magnesium Sulfate 2gm IVPB 2 G/50 ML BAG IV ONE (11:00)
--- NOTE | 2020-03-08 11:03 | RAD REPORT ---
EXAM DESCRIPTION: CT - Thorax Wo Con - 03/08/2020 10:35 am CLINICAL HISTORY: sob COMPARISON: March 07 chest x-ray TECHNIQUE: Computed axial tomography of the chest was obtained. Contrast was not requested. All CT scans are performed using dose optimization technique as appropriate and may include automated exposure control or mA/KV adjustment according to patient size. FINDINGS: The evaluation of mediastinum, khai and vessels is limited secondary to lack of IV contras t administration. Moderate to marked bilateral predominantly subpleural interstitial lung opacities. Mild to moderate r ight upper and middle lobe ground-glass opacities Bulla and blebs within the lungs. No mediastinal or hilar lymphadenopathy is seen. A pleural effusion is not present. No pericardial effusion. Coronary arterial calcifications IMPRESSION: Moderate to marked subpleural interstitial lung opacities have the appearance of idiopat hic pulmonary fibrosis Mild to moderate ground-glass opacities within the right lung indicative of an alveolitis
--- NOTE | 2020-03-08 12:40 | PN ---
Date of Progress Note: 03/08/2020 Subjective: The patient more awake today. Patient had shortness of breath and cough. Patient had a dmitted with rhabdo, developed aspiration pneumonia. Physical Examination: Vital Signs: Blood pressure 124/76, pulse of 98, afebrile. Patient had good urine output, voiding. Chest: Wheezing more prominent, right side. Heart: S1, S2. Regular. Systolic murmur. Abdomen: Soft, nontender. Extremities: No edema. Laboratory Data: WBC 6, H and H 11.5/34, platelets 267. Sodium 142, potassium 3.8, bicarb 24, BUN 2 6, creatinine 1.1, GFR of 63, calcium 8.9, magnesium 1.7. Current Medications: The patient on include: 1.Albuterol. 2.Clonidine patch. 3.Spironolactone 25 b.i.d. was started today. 4.Patient was giving Lasix, single dose. 5.Insulin. Assessment And Plan: 1.Acute kidney injury secondary to rhabdomyolysis and prerenal, recovered, resolved. Patient starte d on spironolactone and giving Lasix. We will follow up kidney function depending on that. 2.Hypertension. Yesterday, we start the patient on clonidine patch. Blood pressure has been better controlled today. We will follow up with primary again patient giving diuresis. 3.Rhabdomyolysis, resolved. 4.Hypomagnesemia. We will supplement. 5.Aspiration pneumonia. We will follow up with the primary. Continue current antibiotic. 6.Respiratory distress. Patient undergo a CAT scan today. We will follow up with Pulmonary. SIENA/CHUYITA Voice ID: [id number] Report ID: [id number]
[2020-03-08] MEDS: AA 5%/D20W/ELECTROLYTES-TPN 2,000 ML, Lipids 20% 250 ML with MULTIVITAMINS INJ 10 ML IV SCH ×3 (17:06)
[2020-03-08] MEDS: INSULIN GLARGINE 100 UNITS/ML SQ SCH (21:02)
[2020-03-09] MEDS: IPRATROPIUM BROM 0.5MG/2.5ML NEB SCH ×4 (01:25→19:45)
[2020-03-09] MEDS: ALBUTEROL 2.5 MG/3 ML NEB SOL NEB SCH ×4 (01:25→19:45)
[2020-03-09 06:27] LABS: Albumin 1.8 g/dL (3.4-5.0); Bilirubin Total 0.6 mg/dL (0.2-1.0); Magnesium 2.1 mg/dL (1.8-2.4); Potassium 3.4 mmol/L (3.5-5.1); Protein, Total 5.1 g/dL (6.4-8.2)
[2020-03-09] MEDS: ARFORMOTEROL TARTRATE 15 MCG/2 ML VIAL.NEB NEB SCH ×2 (08:20→19:45)
[2020-03-09] MEDS: ENSURE ENLIVE 237 ML CAN PO SCH ×2 (09:00→13:19)
[2020-03-09] MEDS: QUETIAPINE 25 MG TAB PO SCH ×2 (09:23→22:36)
[2020-03-09] MEDS: SPIRONOLACTONE 25 MG TABLET PO SCH ×2 (09:23→21:00)
[2020-03-09] MEDS: FLUTICASONE 50MCG NASAL SPRAY NAS SCH ×2 (09:24→22:38)
--- NOTE | 2020-03-09 13:05 | P.PN ---
Subjective Date of Service: 03/09/20 (Hospitalist) Chief Complaint: Hypoxic Patient continues to remain agitated and very hypoxic CT scan shows severe COPD bilateral ground-glass changes Review of Systems General: Weakness Respiratory: Shortness of Breath Physical Examination - Vital Signs Temperature: 97.3 F Blood Pressure: 126/81 Pulse: 96 Respirations: 17 Pulse Ox (%): 92 - Physical Exam General: Alert, Mild distress Respiratory: Expiratory wheezes Cardiovascular: No edema, Regular rate/rhythm - Studies Medications List Reviewed: Yes Assessment & Plan - Problems (Diagnosis) (1) COPD (chronic obstructive pulmonary disease) Current Visit: Yes Status: Acute Plan: Patient continues to remain hypoxic he does have some bilateral ground-glass changes severe COPD on the CT scan no response to antibiotics steroids there is no evidence of sepsis request LTAC consultation patient is difficulty swallowing and TPN CT scan strongly suggestive of idiopathic pulmonary fibrosis overall prognosis is very poor CT angio to rule out PE I suspect he has chronic severe hypoxemia he also refuses BiPAP patient does not have a pulmonary embolus the start on low-dose of Solu-Medrol and IV Lasix Qualifiers: COPD type: unspecified COPD Qualified Code(s): J44.9 - Chronic obstructive pulmonary disease, unspecified Physician Review: Patient Assessed, Agree with Above Assessment and Plan Physician Review Additional Text: # Aspiration pneumonia/Dysphagia- patient requiring 5 L of oxygen. -patient on Zosyn. -barium swallow results reviewed -patient placed on honey thickened liquids, pureed diet but he has been refusing the dysphagia diet. -poor prognosis -increased likelihood of recurrence of aspiration PNA. -keep O2 89-91%\ -Dicussed PEG tube with the daughter. At the moment, he is not a good surgical candidate given the respiratory failure and advanced COPD. -his respiratory status need to improve before consideration for PEG tube insertion. -Start TPN. # COPD exacerbation -improving -oxygen requirement has decreased -continue IV steroid. -continue Brovana and ipratropium. -budesonide -continue antibiotics #Acute kidney injury secondary to rhabdomyolysis -obstructive uropathy has been ruled out. -on TPN due to poor oral intake and dysphagia. -AKA has resolved -follow renal function panel -patient seen by nephrology # acute cystitis with hematuria - urine culture with citrobacter koseri. Patient completed antibiotic treatment for UTI. # transaminitis -secondary to rhabdomyolysis. -resolved #Recurrent falls -PT/OT. -Fall precautions. -patient encouraged to participate in physical therapy. -disposition to skilled rehab. #Delirium -patient remain confused and at this time considered incapable of making informed medical decisions. -psychiatric input appreciated. -disposition to skilled rehab. -continue to treat infection. Hypokalemia: -correct potassium as needed. -monitor renal panel. Goals of care: -continue aggressive measures for now per daughter. Patient is full code.
--- NOTE | 2020-03-09 14:15 | RAD REPORT ---
EXAM DESCRIPTION: CT - Chest Angio - 03/09/2020 1:39 pm CLINICAL HISTORY: Shortness of breath, chronic interstitial lung disease COMPARISON: CT chest March 08, portable chest March 07 TECHNIQUE: Dynamically enhanced axial 3 mm thick images of the chest were obtained during administra tion of 150 mL Isovue 370 IV contrast. Coronal and oblique reconstruction images were generated and r eviewed. Exam utilizes a protocol for optimal evaluation of pulmonary arterial tree. All CT scans are performed using dose optimization technique as appropriate and may include automated exposure control or mA/KV adjustment according to patient size. FINDINGS: Pulmonary arteries are normal. No emboli or other suspicious finding. No acute or signific ant aorta findings. Patient has previously T5 extensive interstitial lung disease primarily subpleural in primarily lower lung field. 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 The inters titial and alveolar opacities have progressed from prior day examination. No pleural thickening or pl eural effusion. No pneumothorax. No abnormal mediastinal or hilar masses or lymphadenopathy seen. No chest wall mass or abnormal axill juliann lymphadenopathy. IMPRESSION: No pulmonary embolus. Worsening interstitial and alveolar edema and/or infiltrate since prior day imaging.
--- NOTE | 2020-03-09 16:19 | EKG ---
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
[2020-03-09] MEDS: AA 5%/D20W/ELECTROLYTES-TPN 2,000 ML, Lipids 20% 250 ML with MULTIVITAMINS INJ 10 ML IV SCH ×3 (17:22)
[2020-03-09] MEDS ORDERED: FUROSEMIDE 20 MG/ 2ML VIAL IV ONE (17:30)
[2020-03-09] MEDS ORDERED: NA CHLORIDE 0.9% 1,000 ML IV SCH (22:00)
[2020-03-09] MEDS: INSULIN GLARGINE 100 UNITS/ML SQ SCH (22:37)
--- NOTE | 2020-03-09 22:50 | PN ---
Date of Progress Note: 03/09/2020 Chief Complaint: Acute kidney injury secondary to rhabdomyolysis, accelerated by prerenal azotemia. History Of Present Illness: Renal function has stabilized and rhabdomyolysis resolved. Patient was started on diuretics to control peripheral edema, prevent congestive heart failure. Rhabdomyolysis w as controlled with IV fluids and it resolved. CK level improved. Patient was found to have hypomagn esemia and received supplementation. Patient is on antibiotics for aspiration pneumonia. Patient un derwent CT scan of the chest and he has been followed by pulmonary service. Review of Systems: Patient is somewhat confused, lethargic, cannot provide review of systems. Physical Examination: Chest: Few rhonchi. Heart: S1, S2. Abdomen: Soft, benign. Extremities: No edema. Laboratory Data: Hemoglobin 11.5, WBC 6.0, platelet count is 257,000. Sodium 139, potassium 3.4, ch loride 105, CO2 of 27, BUN 23, creatinine 1.04, glucose 166, calcium 8.9. Magnesium 2.1. Impression And Plan: 1.Acute kidney injury, in recovery phase. Renal function has improved to baseline. 2.Hypokalemia. Continue to monitor magnesium level and potassium level. Replacement if potassium t o be adjusted as needed. 3.Aspiration pneumonia. Patient had CT scan of the chest and CT scan of the thorax with angiogram. There is no pulmonary embolization. Due to the fact that patient received IV contrast, plan is to h old diuretic and give IV fluids and Mucomyst to prevent contrast-induced nephropathy and acute kidney inj ury. EB/MODL Voice ID: [id number] Report ID: [id number]
[2020-03-10] MEDS: ALBUTEROL 2.5 MG/3 ML NEB SOL NEB SCH ×4 (02:15→20:36)
[2020-03-10] MEDS: IPRATROPIUM BROM 0.5MG/2.5ML NEB SCH ×4 (02:15→20:36)
[2020-03-10] MEDS: ACETAMINOPHEN 500 MG TAB PO PRN ×2 (04:31→15:37)
[2020-03-10 05:14] LABS: Albumin 1.6 g/dL (3.4-5.0); Bilirubin Total 0.7 mg/dL (0.2-1.0); Magnesium 2.1 mg/dL (1.8-2.4); Potassium 3.3 mmol/L (3.5-5.1)
[2020-03-10] MEDS: ARFORMOTEROL TARTRATE 15 MCG/2 ML VIAL.NEB NEB SCH ×2 (07:55→20:36)
[2020-03-10] MEDS: POTASSIUM CL SA 10 MEQ TAB PO ONE ×2 (08:20→08:48)
[2020-03-10] MEDS: FLUTICASONE 50MCG NASAL SPRAY NAS SCH ×2 (08:47→20:58)
[2020-03-10] MEDS: QUETIAPINE 25 MG TAB PO SCH ×3 (08:48→20:58)
--- NOTE | 2020-03-10 11:59 | P.PN ---
Subjective Date of Service: 03/10/20 Chief Complaint: Hypoxic Patient is still dyspneic. He is currently on non-rebreather at 50% of FiO2. RT at bedside giving nebulizer therapy. Patient is refusing to go to LTAC. As per my discussion with staff, he lacks capacity to make such decisions. Efforts ongoing to arrange for transfer to [facility] in [place], [place] Physical Examination - Vital Signs Temperature: 97.9 F Blood Pressure: 133/73 Pulse: 93 Respirations: 18 Pulse Ox (%): 93 - Physical Exam General: Cooperative, Acute distress, Mild distress HEENT: Atraumatic, Normocephalic Respiratory: Diminished (NO WHEEZING HEARD.) Cardiovascular: Regular rate/rhythm, Normal S1 S2 Gastrointestinal: Normal bowel sounds, Soft and benign, Non-distended Musculoskeletal: No clubbing, No swelling, No contractures Integumentary: No rashes, No breakdown, No tenderness/swelling Neurological: Normal speech Urinary: Velasquez catheter - Studies Medications List Reviewed: Yes Assessment & Plan - Problems (Diagnosis) (1) Acute exacerbation of chronic obstructive pulmonary disease (COPD) Current Visit: Yes Status: Acute (2) Acute kidney injury Current Visit: Yes Status: Acute (3) COPD (chronic obstructive pulmonary disease) Current Visit: Yes Status: Acute Qualifiers: COPD type: unspecified COPD Qualified Code(s): J44.9 - Chronic obstructive pulmonary disease, unspecified (4) Rhabdomyolysis Current Visit: Yes Status: Acute (5) Status post fall Current Visit: Yes Status: Acute Physician Review: Patient Assessed, Agree with Above Assessment and Plan Physician Review Additional Text: Assessment Patient is a 79-year-old male with a past medical history of COPD was currently admitted with acute hypoxemic respiratory failure secondary to pulmonary fibrosis and COPD exacerbation patient continues to require high volume with non-rebreather at 50% FiO2. Ongoing plan will be to discharge patient to LTAC. Other issues addressed during this hospitalization included AMMY and UTI. Urine culture yielded Citrobacter koseri. Patient has completed course of antibiotics Aspiration pneumonia/Dysphagia COPD exacerbation Rhabdomyolysis Acute kidney injury UTI with hematuria Transaminitis Recurrent falls Delirium Hypokalemia Plan: Continue non-rebreather FiO2 with FiO2 of 50% Wean off as tolerated Continue p.r.n. duo nebs nebulizer treatment. I appreciate contribution from respiratory therapy Keep O2 sats between 82 and 91 percent Continue Zosyn and scheduled IV Solu-Medrol 20 mg q.8h Aspiration precautions Continue TPN (patient was placed on honey thickened liquids and pureed diet but he refused) Patient is not a good surgical candidate for PEG Q due to ongoing respiratory start Continue nebulizer treatment P.r.n. Seroquel for agitation Continue fall precautions Discharged to LTAC for continued medical and physical therapy . Goals of care: -continue aggressive measures for now per daughter. Patient is full code.
[2020-03-10] MEDS ORDERED: FUROSEMIDE 40 MG/4 ML VIAL IV ONE (12:01)
--- NOTE | 2020-03-10 13:05 | PN ---
Date of Progress Note: 03/10/2020 Subjective: Patient is still confused. Patient has some shortness of breath. Patient continues on TPN for failure to thrive. Objective: Vital Signs: Blood pressure 133/73, pulse of 93. Had good urine output of 1500. Receiv ed Lasix yesterday. Chest: Crackles in the base. Heart: S1, S2 regular. Systolic murmur. Abdomen: Soft, nontender. Extremities: No edema. Laboratory Data: WBC 6, H and H 11.5/34, platelets 257. Sodium 142, potassium 3.3, bicarb 30, BUN 2 6, creatinine 1, calcium 8.6, magnesium 2.1. Medications: Current medications the patient is on include: 1.TPN. 2.Clonidine patch. 3.IV fluid. 4.Ipratropium. 5.Solu-Medrol. 6.Normal saline at 50 per hour. Assessment And Plan: 1.Acute kidney injury secondary to rhabdomyolysis/toxic acute tubular necrosis/prerenal, recovered, resolved. Looks to me normal volume to the wet side. I am going to go ahead and discontinue IV flui d. Continue TPN. 2.Hypertension, controlled, optimal. Discontinue IV fluid. 3.Respiratory distress, status post CT PE protocol was negative, showing possible fluid overload. P atient had good IV fluid after the contrast. I am going to discontinue IV fluid. We will give the p atient extra dose of Lasix today and we will continue TPN. 4.Hypokalemia. We will supplement. 5.Urinary tract infection secondary to Escherichia coli and citrobacter, status post treatment. We will follow up with the primary. 6.Pneumonia aspiration with respiratory distress. Follow up with Pulmonary. We will diurese the briana schmitt. SIENA/FANNIEL Voice ID: [id number] Report ID: [id number]
[2020-03-10] MEDS ORDERED: CODEINE 30MG/APAP 300MG TAB PO PRN (15:30)
[2020-03-10] MEDS: AA 5%/D20W/ELECTROLYTES-TPN 2,000 ML, Lipids 20% 250 ML with MULTIVITAMINS INJ 10 ML, P... IV SCH ×4 (17:55)
[2020-03-10] MEDS: METHYLPREDNISOLONE 40 MG INJ IV SCH (17:56)
[2020-03-10] MEDS: INSULIN GLARGINE 100 UNITS/ML SQ SCH (20:58)
[2020-03-11] MEDS: METHYLPREDNISOLONE 40 MG INJ IV SCH ×3 (00:34→17:12)
[2020-03-11] MEDS ORDERED: D50W 25 GM/50 ML SYRINGE/VIAL IV PRN (00:51)
[2020-03-11] MEDS ORDERED: GLUCAGON 1 MG/VIAL IM PRN (00:51)
[2020-03-11] MEDS: ALBUTEROL 2.5 MG/3 ML NEB SOL NEB SCH ×4 (01:00→19:40)
[2020-03-11] MEDS: IPRATROPIUM BROM 0.5MG/2.5ML NEB SCH ×4 (01:00→19:40)
[2020-03-11] MEDS: INSULIN -REGULAR HUMAN 50 UNIT/0.5 ML ML SQ SCH ×4 (01:15→18:38)
[2020-03-11 05:19] LABS: Absolute Lymphocytes (CBC) 1.2 K/uL (0.7-4.9); Basophils % 1.2 % (0-1.3); Hematocrit 33.5 % (39.6-49.0); Lymphocytes % 10.1 % (15.3-44.8); MPV 9.9 fL (7.6-11.3); RBC Red Blood Cell Count 3.68 M/uL (4.33-5.43)
[2020-03-11 05:35] LABS: Blood Morphology Comment NOT SEEN (NOT SEEN); Platelet Estimate ADEQ
[2020-03-11 05:37] LABS: Albumin 1.6 g/dL (3.4-5.0); Bilirubin Total 0.6 mg/dL (0.2-1.0); Potassium 3.9 mmol/L (3.5-5.1); Protein, Total 5.4 g/dL (6.4-8.2)
[2020-03-11] MEDS: ARFORMOTEROL TARTRATE 15 MCG/2 ML VIAL.NEB NEB SCH ×2 (07:53→19:40)
[2020-03-11] MEDS: QUETIAPINE 25 MG TAB PO SCH ×3 (09:00→21:00)
[2020-03-11] MEDS: FLUTICASONE 50MCG NASAL SPRAY NAS SCH ×2 (09:47→20:42)
--- NOTE | 2020-03-11 10:19 | P.PN ---
Subjective Date of Service: 03/11/20 Chief Complaint: Hypoxic Patient is feeling more comfortable today. He is still on non-rebreather with a FiO2 of 50%. He has been refused to LTAC in [place], [place]. Discussed case during MDR. SW to discuss with family about looking for a LTAC locally here in [place], [place]. Physical Examination - Vital Signs Temperature: 97.5 F Blood Pressure: 154/75 Pulse: 93 Respirations: 24 Pulse Ox (%): 95 - Physical Exam General: In no apparent distress, Other (In mild respiratory distress) HEENT: Atraumatic, Normocephalic Neck: Supple Respiratory: Diminished (No wheezing or crackles heard) Cardiovascular: No edema, Normal pulses, Regular rate/rhythm, Normal S1 S2 Gastrointestinal: Normal bowel sounds, Soft and benign, Non-distended Musculoskeletal: No clubbing, No swelling, No contractures, No erythema, No tenderness, No warmth, Other (RUE picc line) Integumentary: Other (warm extremities) Neurological: Normal speech, Normal strength at 5/5 x4 extr, Sensation intact, Normal affect Urinary: Velasquez catheter - Studies Medications List Reviewed: Yes Assessment & Plan - Problems (Diagnosis) (1) Acute exacerbation of chronic obstructive pulmonary disease (COPD) Current Visit: Yes Status: Acute (2) Acute kidney injury Current Visit: Yes Status: Acute (3) COPD (chronic obstructive pulmonary disease) Current Visit: Yes Status: Acute Qualifiers: COPD type: unspecified COPD Qualified Code(s): J44.9 - Chronic obstructive pulmonary disease, unspecified (4) Rhabdomyolysis Current Visit: Yes Status: Acute (5) Status post fall Current Visit: Yes Status: Acute Physician Review: Patient Assessed, Agree with Above Assessment and Plan Physician Review Additional Text: Assessment Patient is a 79-year-old male with a past medical history of COPD was currently admitted with acute hypoxemic respiratory failure secondary to pulmonary fibrosis and COPD exacerbation. He continues to require high volume with non-rebreather at 50% FiO2. Ongoing plan will be to discharge patient to LTAC. Other issues addressed during this hospitalization included AMMY and UTI. Urine culture yielded Citrobacter koseri. Patient has completed course of antibiotics Aspiration pneumonia/Dysphagia COPD exacerbation Rhabdomyolysis Acute kidney injury UTI with hematuria Transaminitis Recurrent falls Delirium Hypokalemia Plan: Continue non-rebreather FiO2 with FiO2 of 50% Wean off as tolerated Continue p.r.n. duo nebs nebulizer treatment. I appreciate contribution from respiratory therapy Keep O2 sats between 82 and 91 percent Continue Zosyn and scheduled IV Solu-Medrol 20 mg q.8h Aspiration precautions Continue TPN (patient was placed on honey thickened liquids and pureed diet but he refused) Patient is not a good surgical candidate for PEG Q due to ongoing respiratory status P.r.n. Seroquel for agitation Continue fall precautions Discharged to LTAC for continued medical and physical therapy . Goals of care: -continue aggressive measures for now per daughter. Patient is full code.
--- NOTE | 2020-03-11 11:40 | PN ---
Date of Progress Note: 03/11/2020 History Of Present Illness: Patient was admitted with acute kidney injury secondary to rhabdo, toxic ATN, UTI. Patient had dysphagia, placed on TPN. Kidney function has been improving. Has electrolyte imbalance, been corrected with the TPN. Physical Examination: Vital Signs: Blood pressure 154/75, pulse of 93, afebrile. Chest: Clear to auscultation. Heart: S1, S2. Systolic murmur. Abdomen: Soft and nontender. Extremities: No edema. Laboratory Data: WBC 11.5, H and H 11.2/33.5, platelets 211. Sodium 138, potassium 3.9, bicarb 26, BUN 33, creatinine 1, GFR of 68, calcium 8.6. Current Medications: The patient is on include: 1. Breathing treatment. 2. Clonidine patch. 3. Methylprednisolone. 4. Insulin. 5. Total parenteral nutrition. Assessment And Plan: 1. Acute kidney injury, multifactorial, secondary to toxic acute tubular necrosis / Rahbdo and prerenal, recovered, resolved. 2. Rhabdomyolysis, recovered, resolved. 3. Hypokalemia, corrected. Continue current TPN regimen. 4. Respiratory distress secondary to pneumonia, aspiration. 5. Continue current antibiotic. We will follow up with primary. 6. Urinary tract infection, status post treatment secondary to Escherichia coli. 7. Aspiration pneumonia. As above. JARED Voice ID: [id number] Report ID: [id number] PAUL
[2020-03-11] MEDS: AA 5%/D20W/ELECTROLYTES-TPN 2,000 ML, Lipids 20% 250 ML with MULTIVITAMINS INJ 10 ML, P... IV SCH ×4 (17:09)
[2020-03-11] MEDS: INSULIN GLARGINE 100 UNITS/ML SQ SCH (20:41)
[2020-03-12] MEDS: INSULIN -REGULAR HUMAN 50 UNIT/0.5 ML ML SQ SCH ×4 (00:09→18:48)
[2020-03-12] MEDS: ACETAMINOPHEN 500 MG TAB PO PRN (00:10)
[2020-03-12] MEDS: METHYLPREDNISOLONE 40 MG INJ IV SCH ×3 (00:21→17:57)
[2020-03-12] MEDS: ALBUTEROL 2.5 MG/3 ML NEB SOL NEB SCH ×4 (01:30→20:00)
[2020-03-12] MEDS: IPRATROPIUM BROM 0.5MG/2.5ML NEB SCH ×4 (01:30→20:00)
[2020-03-12] MEDS: ARFORMOTEROL TARTRATE 15 MCG/2 ML VIAL.NEB NEB SCH ×2 (08:15→20:00)
[2020-03-12] MEDS ORDERED: AMLODIPINE 5 MG TAB PO SCH (09:00)
[2020-03-12] MEDS: FLUTICASONE 50MCG NASAL SPRAY NAS SCH (09:38)
[2020-03-12] MEDS: QUETIAPINE 25 MG TAB PO SCH (09:39)
[2020-03-12] MEDS ORDERED: FUROSEMIDE 40 MG/4 ML VIAL IV ONE (10:14)
--- NOTE | 2020-03-12 10:57 | PN ---
Date of Progress Note: 03/12/2020 Subjective: Patient was admitted with rhabdomyolysis. Patient developed acute kidney injury, develo ped aspiration pneumonia. Patient had some respiratory distress, failure to thrive because of dyspha noel. Physical Examination: Vital Signs: Blood pressure 140/91, pulse of 99. Patient had good urine output of 2 L. Patient sti ll positive balance. Current Medications: The patient is on include amlodipine 5 mg, clonidine patch, breathing treatment , Solu-Medrol. Assessment And Plan: 1.Acute kidney injury secondary to prerenal/rhabdomyolysis/toxic acute tubular necrosis, on the estrada very look to me slightly on the over volume side. I am going to go ahead and get a chest x-ray for b hernandez evaluation. For the fluid status of the patient, we will consider diuresing the patient to est ablish better volume control and we will follow up. 2.Hypertension. Continue clonidine patch. We will add Lasix. 3.Rhabdomyolysis, resolved. 4.Hypokalemia, resolved. 5.Over volume. We will diurese the patient to establish better volume control. 6.Respiratory distress secondary to over volume as above. 7.Pneumonia. Continue current antibiotic. SIENA/MODL Voice ID: [id number] Report ID: [id number]
--- NOTE | 2020-03-12 11:22 | RAD REPORT ---
EXAM DESCRIPTION: RAD - Chest Single View - 03/12/2020 9:57 am CLINICAL HISTORY: COPD Chest pain. COMPARISON: Chest Single View dated 03/07/2020; Chest Single View dated 03/05/2020; Chest Single View d ated 03/03/2020; Chest Single View dated 02/27/2020; Chest Angio dated 03/09/2020; Thorax Wo Con dated 02/25 FINDINGS: Portable technique limits examination quality. Since 03/07/2020, mild improvement in lung aeration is seen. The heart is normal in size. Right-sided PICC line is unchanged with tip in the SVC. IMPRESSION: Mild improvement in lung aeration since comparative study.
--- NOTE | 2020-03-12 12:55 | P.PN ---
Subjective Date of Service: 03/12/20 Chief Complaint: Hypoxic He continues to have drop in O2 saturation. CXR showed better lung aeration. He is currently on CPAP alternating with non-rebreather at 50% during meals. Physical Examination - Vital Signs Temperature: 97.0 F Blood Pressure: 140/91 Pulse: 99 Respirations: 28 Pulse Ox (%): 95 - Physical Exam General: Alert, Cooperative HEENT: Atraumatic, Normocephalic Respiratory: Diminished, Expiratory wheezes, Inspiratory wheezes Cardiovascular: Normal pulses, Regular rate/rhythm, Normal S1 S2 Gastrointestinal: Normal bowel sounds, Soft and benign, Non-distended Musculoskeletal: No clubbing, No swelling, No contractures, No erythema, No tenderness, No warmth Integumentary: No rashes, No breakdown, No significant lesion, No tenderness/swelling, No erythema, No warmth, No cyanosis Neurological: Normal speech, Sensation intact, Normal affect Urinary: Velasquez catheter - Studies Medications List Reviewed: Yes Assessment & Plan - Problems (Diagnosis) (1) Acute exacerbation of chronic obstructive pulmonary disease (COPD) Current Visit: Yes Status: Acute (2) Acute kidney injury Current Visit: Yes Status: Acute (3) COPD (chronic obstructive pulmonary disease) Current Visit: Yes Status: Acute Qualifiers: COPD type: unspecified COPD Qualified Code(s): J44.9 - Chronic obstructive pulmonary disease, unspecified (4) Rhabdomyolysis Current Visit: Yes Status: Acute (5) Status post fall Current Visit: Yes Status: Acute Physician Review: Patient Assessed, Agree with Above Assessment and Plan Physician Review Additional Text: Assessment Patient is a 79-year-old male with a past medical history of COPD was currently admitted with acute hypoxemic respiratory failure secondary to pulmonary fibrosis and COPD exacerbation. He continues to require high volume with non-rebreather at 50% FiO2. Ongoing plan will be to discharge patient to LTAC. He has been denied at a facility in [place], [place]. We're looking for a facil ity locally. Other issues addressed during this hospitalization included AMMY and UTI. Urine culture yielded Citrobacter koseri. Patient has completed course of antibiotics Aspiration pneumonia/Dysphagia COPD exacerbation Rhabdomyolysis Acute kidney injury UTI with hematuria Transaminitis Recurrent falls Delirium Hypokalemia Plan: Continue non-rebreather with FiO2 of 50% Wean off as tolerated Continue p.r.n. duo nebs nebulizer treatment. I appreciate contribution from respiratory therapy Keep O2 sats between 82 and 91% Continue Zosyn and scheduled IV Solu-Medrol 20 mg q 8hr Aspiration precautions Continue TPN (patient was placed on honey thickened liquids and pureed diet but he refused) Patient is not a good surgical candidate for PEG Q due to ongoing respiratory status P.r.n. Seroquel for agitation Continue fall precautions Discharged to LTAC for continued medical and physical therapy . Goals of care: -continue aggressive measures for now per daughter. Patient is full code.
[2020-03-12] MEDS: AA 5%/D20W/ELECTROLYTES-TPN 2,000 ML, Lipids 20% 250 ML with MULTIVITAMINS INJ 10 ML, P... IV SCH ×4 (17:00)
[2020-03-12 17:12] VITALS: BP 114/70; TEMP 97.6
[2020-03-12 20:04] VITALS: O2SAT 95
[2020-03-13] MEDS ORDERED: CEFUROXIME 250 MG TAB PO SCH (09:00)
--- NOTE | 2020-03-14 13:11 | P.PN ---
Subjective Date of Service: 03/07/20 Chief Complaint: Hypoxic Patient remain confused and hypoxic No fever. Oxygen requirement has increased. Poor oral intake. Physical Examination - Vital Signs Temperature: 97.6 F Blood Pressure: 114/70 Pulse: 93 Respirations: 20 Pulse Ox (%): 94 - Physical Exam General: Confused Neck: Supple Respiratory: Crackles/rales Cardiovascular: No edema, Regular rate/rhythm, Normal S1 S2 Gastrointestinal: Normal bowel sounds, Soft and benign, Non-distended Musculoskeletal: No swelling Integumentary: No rashes Neurological: Other (Non-focal) - Studies Medications List Reviewed: Yes Assessment And Plan - Current Problems (Diagnosis) (1) Acute exacerbation of chronic obstructive pulmonary disease (COPD) Status: Acute (2) Status post fall Status: Acute Physician Review: Patient Assessed, Agree with Above Assessment and Plan Physician Review Additional Text: Assessment Aspiration pneumonia/Dysphagia COPD exacerbation Rhabdomyolysis Acute kidney injury UTI with hematuria Transaminitis Recurrent falls Delirium Hypokalemia Plan: Clinical condition is getting worse. Titrate O2 BIPAP prn Continue IV zosyn. IV levaquin added. Scheduled neb treatments Continue IV solumedrol Aspiration precautions Continue TPN. Patient refused dysphagia diet. Patient is not a good surgical candidate for PEG Q due to ongoing respiratory status.
== END 2020-03-12 19:50 | DRG 177 ==
LOC: ER 19:18 → ERHOLD 22:47 → 4TH 23:17 → 2ND 02-25 17:58
PROVIDERS: ADMIT Hospitalist; ATTEND Internal Medicine
PROC: 3E0336Z Introduction of Nutritional Substance into Peripheral Vein, Percutaneous Approach (ICD-10-PCS; principal; 2020-03-06)
PROC: 5A09557 Assistance with Respiratory Ventilation, Greater than 96 Consecutive Hours, Continuous Positive Airway Pressure (ICD-10-PCS; 2020-03-07)
DX: J69.0 Pneumonitis due to inhalation of food and vomit (principal); N17.0 Acute kidney failure with tubular necrosis; J96.01 Acute respiratory failure with hypoxia; E43 Unspecified severe protein-calorie malnutrition; J44.1 Chronic obstructive pulmonary disease with (acute) exacerbation; M62.82 Rhabdomyolysis; N30.01 Acute cystitis with hematuria; E87.4 Mixed disorder of acid-base balance; G93.40 Encephalopathy, unspecified; N25.81 Secondary hyperparathyroidism of renal origin; J15.5 Pneumonia due to Escherichia coli; J15.6 Pneumonia due to other Gram-negative bacteria; E87.6 Hypokalemia; R79.89 Other specified abnormal findings of blood chemistry; R74.0 Nonspecific elevation of levels of transaminase and lactic acid dehydrogenase [LDH]; E83.39 Other disorders of phosphorus metabolism; E83.51 Hypocalcemia; E83.42 Hypomagnesemia; J84.112 Idiopathic pulmonary fibrosis; F17.210 Nicotine dependence, cigarettes, uncomplicated; R13.10 Dysphagia, unspecified; D64.9 Anemia, unspecified; R62.7 Adult failure to thrive; K22.8 Other specified diseases of esophagus; B96.89 Other specified bacterial agents as the cause of diseases classified elsewhere; B95.2 Enterococcus as the cause of diseases classified elsewhere; Z68.22 Body mass index [BMI] 22.0-22.9, adult
CPT/HCPCS: 36415; 36569; 51702; 70450; 71045; 71250; 71275; 72125; 74230; 80048; 80053; 80069; 80076; 80202; 81003; 81015; 82550; 82553; 82570; 82805; 82947; 83690; 83735; 83880; 83970; 84132; 84145; 84156; 84443; 84478; 84484; 85025; 85379; 85610; 85730; 86317; 86704; 86706; 87040; 87070; 87077; 87086; 87088; 87186; 87205; 87340; 90471; 90714; 92526; 92611; 93005; 93306; 93970; 94640; 94660; 94760; 96361; 96374; 96375; 97110; 97162; 97530; 99285; J0456; J0692; J0696; J1650; J1815; J1940; J2270; J2405; J2543; J2920; J2930; J3475; J3486; J7030; J7040; J7512; J7605; J7799; P9047; Q9967